=== PATIENT | female | born 1980 | race Caucasian/White ===

== ENCOUNTER 2020-11-17 21:59 | Emergency (ER) | payer MEDICAID, SELFPAY ==
[2020-11-17 22:36] VITALS: BP 140/56; PULSE 94; RESP 16; TEMP 36.9; O2SAT 97; BMI 52.5
--- NOTE | 2020-11-17 22:49 | XR_ITS ---
EXAMINATION: XR FEMUR, RIGHT CLINICAL INFORMATION: Right thigh pain. COMPARISON: None TECHNIQUE: AP and lateral views of the right femur were obtained. FINDINGS: No acute fracture or dislocation. Small lateral acetabular marginal osteophytes. No osseous erosion. No abnormal soft tissue calcification. XR/XR femur RT 2V IMPRESSION: No acute osseous abnormality. Minimal right hip arthrosis.
--- NOTE | 2020-11-17 22:49 | XR_ITS ---
EXAMINATION: XR HAND/WRIST, RIGHT CLINICAL INFORMATION: Pain. COMPARISON: Right forearm radiographs dated 05/06/2016. TECHNIQUE: AP, oblique, lateral, and scaphoid views of the right hand/wrist were obtained. FINDINGS: No acute fracture or dislocation. No joint space narrowing or marginal osteophytes. No osseous erosion. No abnormal soft tissue calcification. XR/XR hand wrist RT IMPRESSION: Unremarkable examination.
[2020-11-17] MEDS: Ketorolac Tromethamine 15 MG/ML VIAL IM (23:37)
--- NOTE | 2020-11-17 23:47 | ED_ITS ---
HPI - General Adult General Chief complaint: General Medical Stated complaint: Hand and leg swelling Time Seen by Provider: 11/17/20 22:43 Source: patient Mode of arrival: ambulatory History of Present Illness HPI narrative: 40-year-old female with no significant past medical history presenting to the ED complaining of right wrist and right thigh pain x3 days. Reports pain with palpation and range of motion. Denies known injury/trauma or falls. Denies numbness, tingling, weakness, fever, chills, history of gout, recent lifting, SOB/CP, recent travel Onset (ago): day(s) Related Data Previous Rx's Medication Instructions Recorded acetaminophen [Tylenol Extra 500 mg PO Q6H PRN #20 tab 11/17/20 Strength] lidocaine [Lidoderm] 1 patch TOPICAL DAILY PRN #30 ea 11/17/20 MDD remove after 12 hours methocarbamol 750 mg PO Q8H PRN 3 Days #9 tab 11/17/20 naproxen 500 mg PO BID PRN 10 Days #20 tab 11/17/20 Allergies Allergy/AdvReac Type Severity Reaction Status Date / Time Flexeril Allergy Unknown palpitations, Verified 11/17/20 22:38 itching, swelling, tachycardia tramadol [TRAMADOL] Allergy Unknown ITCHING Verified 11/17/20 22:38 From FLEXERIL Allergy Unknown ITCHING Uncoded 11/17/20 22:38 Review of Systems Review of Systems: Constitutional: No Weight loss, No Fever, No Chills Cardiovascular: No Chest Pain, No SOB Respiratory: No Cough, No Wheezing Musculoskeletal: + joint pain, No Myalgias, + Joint Swelling Skin: No Skin Lesions, No rash Neuro: No Weakness, No Numbness, No Paresthesias Yes all other systems are reviewed and are negative [facility] Past Medical History Attestation statement: The following information was validated with the patient. Medical History (Updated 11/17/20 @ 23:51 by VITOR Chi) No known health problems Social History Social History Advance Directives: No Advance Directives Information Provided: No Physical Exam Vital Signs: Vital Signs: Last Vital Signs Temp 98.5 F 11/17/20 22:36 Pulse 94 11/17/20 22:36 Resp 16 11/17/20 22:36 BP 140/56 H 11/17/20 22:36 Pulse Ox 97 11/17/20 22:36 Body Mass Index 52.5 Const: General: cooperative and healthy appearing Orientation/consciousness: patient oriented x3 Limitations: no limitations HENMT: Head: Yes normal to inspection Ears: hearing grossly normal bilate rally General nose exam: Normal external nose present Face and sinus: Yes normal facial exam Eyes: General: appearance normal, both eyes and all related structures EOM: EOMs intact bilaterally Neck: Neck: Yes normal visual inspection Resp: Effort & Inspection: normal respiratory effort Cardio: Rate: regular rate Peripheral pulses: radial pulses present and dorsalis pedis present Skin: Rashes: no rashes Wounds: no wounds Neuro: General: patient oriented x3 Gait exam (Neuro): Normal gait present Extrem: Other: Mild swelling noted to right hand fingers. Right phalanges and wrist with ttp. No snuffbox ttp. No erythema, fluctuance/induration or deformity. No cellulites or streaking. Decreased ROM of hand and wrist due to pain. Neurovascularly intact. Right distal thigh with lateral tenderness. No deformity, no erythema/cellulitis. No calf tenderness. Neurovascularly intact. R knee nontender. All compartments soft Course Course Course Narrative: * XR's unremarkable Results discussed with patient including worrisome signs and symptoms and strict return precautions. Patient is to follow-up with her PCP. She verbalized understanding feel safe for discharge home Medical Decision Making MDM Narrative Medical decision making narrative: On exam VSS, NAD/well-appearing, physical exam as above. ? Occult fracture. No evidence of cellulitis. Compartments soft, low concern for septic joint or arthritis. Plan: X-rays, reassess Discharge Plan Discharge Clinical Impression: Myalgia Patient Disposition: Home, Self-Care Instructions: Musculoskeletal Pain (ED) Additional Instructions: Your x-rays were unremarkable today in the emergency department You to follow-up with your primary care doctor You may ice and heat painful areas Your pain is likely musculoskeletal Robaxin is a muscle relaxer, take at night as it makes you drowsy, do not drive, drink alcohol, or operate machinery while taking it Naproxen as an anti-inflammatory / pain medication, take with food Lidoderm patches are numbing patches, apply to painful area In addition take Tylenol at home If symptoms persist or worsen, pain becomes unbearable, you developed urinary retention or incontinence, or weakness return to the ED Prescriptions: New acetaminophen [Tylenol Extra Strength] 500 mg tablet 500 mg PO Q6H PRN (Reason: pain or fever) Qty: 20 RF: 0 lidocaine [Lidoderm] 5 % adhesive patch,medicated 1 patch topical DAILY MDD remove after 12 hours PRN (Reason: pain) Qty: 30 RF: 0 naproxen 500 mg tablet 500 mg PO BID PRN (Reason: pain) 10 Days Qty: 20 RF: 0 methocarbamol 750 mg tablet 750 mg PO Q8H PRN (Reason: pain, moderate) 3 Days Qty: 9 RF: 0 Referrals: Kathy Valverde DO [Primary Care Provider] - 2 days
== END 2020-11-17 23:30 | disposition home or self-care (01) ==
PROVIDERS: Emergency Provider Emergency Medicine; PCP Family Medicine
DX: M79.10 Myalgia, unspecified site (principal); M25.531 Pain in right wrist; M79.651 Pain in right thigh
CPT/HCPCS: 73110; 73130; 73552; 96372; 99284; J1885

== ENCOUNTER 2020-11-19 19:35 | Emergency (ER) | payer MEDICAID, SELFPAY ==
[2020-11-19 20:19] VITALS: BP 182/91; PULSE 123; RESP 20; TEMP 36.8; O2SAT 99; BMI 50.8
[2020-11-19 22:32] VITALS: BP 141/80; PULSE 114; RESP 18; TEMP 36.9; O2SAT 99
--- NOTE | 2020-11-19 23:25 | ED_ITS ---
HPI - Extremity Problem General Chief complaint: Extremity Problem Stated complaint: Hand swelling Time Seen by Provider: 11/19/20 23:01 Source: patient Mode of arrival: ambulatory Limitations: no limitations History of Present Illness HPI Narrative: 40-year-old female with past medical history of spina bifida presents with bilateral hand pain. She stated that the pain started several days ago, was seen at this facility and given lidocaine patch, Robaxin and naproxen with poor effect. She states that she is unable to hold onto a cup, or pull up her pants because of the pain in her hands. She does not report any trauma, assault, fevers, chills, nausea, vomiting, abdominal pain, abdominal distention, dysuria, hematuria, or edema. She does report some mild swelling to the right hand. MD Complaint: extremity pain and extremity swelling Onset (ago): day(s) (4) Pain Consistency: constant Location: left, right and upper extremity Severity scale (1-10): 10 Quality: aching and constant Relieving factors: nothing Exacerbating factors: range of motion and palpation Associated symptoms: denies other symptoms Related Data Previous Rx's Medication Instructions Recorded cephalexin [Keflex] 500 mg PO Q8H 7 Days #21 cap 11/20/20 oxycodone 5 mg PO BID PRN #6 tab 11/20/20 phenazopyridine [Pyridium] 200 mg PO TID PRN #6 tab 11/20/20 Allergies Allergy/AdvReac Type Severity Reaction Status Date / Time Flexeril Allergy Unknown palpitations, Verified 11/19/20 22:06 itching, swelling, tachycardia tramadol [TRAMADOL] Allergy Unknown ITCHING Verified 11/19/20 22:06 gabapentin Allergy Rash Verified 11/19/20 22:08 From FLEXERIL Allergy Unknown Rash Uncoded 11/19/20 22:08 Review of Systems Review of Systems: Constitutional: No Fever, No Chills ENT/Mouth: No Ear Pain, No Hoarseness, No sore throat Eyes: No Eye Pain, No Swelling, No Redness, No Foreign Body Cardiovascular: No Chest Pain, No SOB Respiratory: No Cough, No Dyspnea Gastrointestinal: No Nausea, No Vomiting, No Diarrhea, No abdominal Pain Genitourinary: No Dysuria, No Hematuria Musculoskeletal: positive bilateral hand pain, No Myalgias, No Joint Swelling Skin: No Skin lacerations, No rash Neuro: No Weakness, No Numbness, No Paresthesias, No Loss of Consciousness, No Dizziness, No Headache Psych: No Anxiety/Panic, No Depression Heme/Lymph: no easy bruising, no Lymphadenopathy Endocrine: No Polyuria, No Polydipsia Yes all other systems are reviewed and are negative [facility] Past Medical History Medical History No known health problems Spina bifida Social History Social History Alcohol intake: never Smoking Status: Never smoker Use of substances other than those prescribed or required for medical reasons: No Advance Directives: No Advance Directives Information Provided: Yes Physical Exam Vital Signs: Vital Signs: Last Vital Signs Temp 99.3 F 11/20/20 00:41 Pulse 101 H 11/20/20 02:00 Resp 18 11/20/20 02:00 BP 142/75 H 11/20/20 02:00 Pulse Ox 96 11/20/20 02:00 Body Mass Index 50.8 Appearance: Alert. Oriented X3. Moderate distress. Eyes: Pupils equal, round and reactive to light. ENT: Pharynx normal. Neck: Normal inspection. Neck supple. CVS: Normal heart rate and rhythm. Pulses normal. Respiratory: No respiratory distress. Breath sounds normal. Abdomen: Soft and nontender. Skin: Skin warm and dry. Normal skin color. Normal skin turgor. Extremities: No lower extremity edema. 3/5 strength bilateral hands, patient is unwilling to move her fingers secondary to pain, sensation and capillary refill normal to all digits. Neuro: No motor deficit. No sensory deficit. Course Course Course Narrative: 40-year-old female with past medical history of spina bifida presents with bilateral hand pain. This is her 2nd visit, we will repeat x-rays of bilateral hands, her symptoms are suspicious for arthritis will order a CRP and ESR, drugs of abuse screen, urinalysis, CBC and Chem 7. Heart rate elevated upon arrival in 123, Patient states that she is very nervous and in 10/10 pain. Will order lactic and cultures. Urinalysis indicates UTI, elevated CRP and ESR indicative of inflammatory consistent with arthritis. Pain is not well managed we will give oxycodone p.o. and Toradol IV. Detailed description for discharge instructions with patient, she does understand that she must follow-up with Rheumatology, and that pain will persist. Patient does understand the medications given to her and the high risk of addiction and abuse with oxycodone. Patient verbalized understanding of and agrees to plan of care discharge home. Reevaluation(s) Reevaluation #1: This TELEGRAPHIC TYPEWRITER OPERATOR started IV line at this time. Labs drawn at this time. Time: 00:12 MDM - Extremity (Nontraumatic) MDM Narrative Medical decision making narrative: Arthritis, fracture Differential Diagnosis Differential diagnosis: Likely gout and cellulitis Medical Records Attestation: I reviewed the patient's medical records. Lab Data Attestation: I reviewed the patient's lab results. Result diagrams: 11/20/20 00:16 11/20/20 00:16 Labs: Lab Results 11/20/20 11/20/20 11/20/20 Range/Units 00:16 00:16 00:16 WBC 10.4 (4.8-10.8) X10*3/uL RBC 4.56 (4.20-5.50) X10*6/uL Hgb 12.9 (12.0-16.0) g/dl Hct 38.6 (37-47) % MCV 84.6 (80-98) fL MCH 28.3 (27.0-33.0) pg MCHC 33.4 (31.0-35.0) g/dl RDW 12.1 (11.0-16.0) % Plt Count 246 (160-400) X10*3/uL MPV 11.7 (9.4-12.3) fL Immature Gran % (Auto) 0.2 (0.0-0.4) % Neut % (Auto) 77.5 H (45-73) % Lymph % (Auto) 14.8 L (20-40) % Larue % (Auto) 5.1 (2-11) % Eos % (Auto) 2.0 (0-4) % Baso % (Auto) 0.4 (0-2) % Lymph # (Auto) 1.5 (1.2-4.9) X10*3/uL Larue # (Auto) 0.5 (0.1-1.2) X10*3/uL Eos # (Auto) 0.2 (0.0-0.4) X10*3/uL Baso # (Auto) 0.0 (0.0-0.2) X10*3/uL Abs Immat Gran (auto) 0.02 (0.00-0.03) X10*3/uL Absolute Neuts (auto) 8.0 (2.0-8.3) X10*3/uL Absolute Nucleated RBC 0.000 (0.0-0.012) X10*3/uL Nucleated RBC % (auto) 0.0 (0.0-0.2) /100WBC ESR 67 H (0-20) MM/HR Hold Blue Top Sodium 137 (135-145) mmol/L Potassium 4.1 (3.3-5.1) mmol/l Chloride 101 (96-108) mmol/L Carbon Dioxide 22 (22-29) mmol/L Anion Gap 18 (12-20) BUN 8 L (9-16) mg/dL Creatinine 0.74 (0.5-1.4) mg/dL Estim Creat Clear Calc 117.6 Estimated GFR > 60 Random Glucose 255 H (60-115) mg/dL Lactic Acid (0.5-2.0) mmol/L Calcium 8.4 (8.4-10.2) mg/dL C-Reactive Protein (< or = 0.50) mg/dL Hold Red Top Hold Green Top Urine Color Urine Appearance Urine pH (5.0-8.0) Ur Specific [place] (1.005-1.025) Urine Protein (NEG-TRACE) MG/DL Urine Glucose (UA) (NEG) MG/DL Urine Ketones (NEG) MG/DL Urine Blood (NEG) Urine Nitrite (NEG) Ur Leukocyte Esterase (NEG) Urine RBC (0) /HPF Urine WBC (0-4) /HPF Ur Squamous Epith Cells /LPF Calcium Oxalate Crystal /LPF Urine Bacteria /LPF Urine Mucus /LPF Urine Opiates Screen (Not Detect) Ur Barbiturates Screen (Not Detect) Ur Phencyclidine Scrn (Not Detect) Ur Amphetamines Screen (Not Detect) U Benzodiazepines Scrn (Not Detect) Urine Cocaine Screen (Not Detect) U Marijuana (THC) Screen (Not Detect) 11/20/20 11/20/20 11/20/20 Range/Units 00:16 00:17 00:25 WBC (4.8-10.8) X10*3/uL RBC (4.20-5.50) X10*6/uL Hgb (12.0-16.0) g/dl Hct (37-47) % MCV (80-98) fL MCH (27.0-33.0) pg MCHC (31.0-35.0) g/dl RDW (11.0-16.0) % Plt Count (160-400) X10*3/uL MPV (9.4-12.3) fL Immature Gran % (Auto) (0.0-0.4) % Neut % (Auto) (45-73) % Lymph % (Auto) (20-40) % Larue % (Auto) (2-11) % Eos % (Auto) (0-4) % Baso % (Auto) (0-2) % Lymph # (Auto) (1.2-4.9) X10*3/uL Larue # (Auto) (0.1-1.2) X10*3/uL Eos # (Auto) (0.0-0.4) X10*3/uL Baso # (Auto) (0.0-0.2) X10*3/uL Abs Immat Gran (auto) (0.00-0.03) X10*3/uL Absolute Neuts (auto) (2.0-8.3) X10*3/uL Absolute Nucleated RBC (0.0-0.012) X10*3/uL Nucleated RBC % (auto) (0.0-0.2) /100WBC ESR (0-20) MM/HR Hold Blue Top SEE NOTE Sodium (135-145) mmol/L Potassium (3.3-5.1) mmol/l Chloride (96-108) mmol/L Carbon Dioxide (22-29) mmol/L Anion Gap (12-20) BUN (9-16) mg/dL Creatinine (0.5-1.4) mg/dL Estim Creat Clear Calc Estimated GFR Random Glucose (60-115) mg/dL Lactic Acid 1.2 (0.5-2.0) mmol/L Calcium (8.4-10.2) mg/dL C-Reactive Protein 9.00 H (< or = 0.50) mg/dL Hold Red Top Hold Green Top Urine Color Urine Appearance Urine pH (5.0-8.0) Ur Specific [place] (1.005-1.025) Urine Protein (NEG-TRACE) MG/DL Urine Glucose (UA) (NEG) MG/DL Urine Ketones (NEG) MG/DL Urine Blood (NEG) Urine Nitrite (NEG) Ur Leukocyte Esterase (NEG) Urine RBC (0) /HPF Urine WBC (0-4) /HPF Ur Squamous Epith Cells /LPF Calcium Oxalate Crystal /LPF Urine Bacteria /LPF Urine Mucus /LPF Urine Opiates Screen (Not Detect) Ur Barbiturates Screen (Not Detect) Ur Phencyclidine Scrn (Not Detect) Ur Amphetamines Screen (Not Detect) U Benzodiazepines Scrn (Not Detect) Urine Cocaine Screen (Not Detect) U Marijuana (THC) Screen (Not Detect) 11/20/20 11/20/20 11/20/20 Range/Units 00:25 00:25 00:25 WBC (4.8-10.8) X10*3/uL RBC (4.20-5.50) X10*6/uL Hgb (12.0-16.0) g/dl Hct (37-47) % MCV (80-98) fL MCH (27.0-33.0) pg MCHC (31.0-35.0) g/dl RDW (11.0-16.0) % Plt Count (160-400) X10*3/uL MPV (9.4-12.3) fL Immature Gran % (Auto) (0.0-0.4) % Neut % (Auto) (45-73) % Lymph % (Auto) (20-40) % Larue % (Auto) (2-11) % Eos % (Auto) (0-4) % Baso % (Auto) (0-2) % Lymph # (Auto) (1.2-4.9) X10*3/uL Larue # (Auto) (0.1-1.2) X10*3/uL Eos # (Auto) (0.0-0.4) X10*3/uL Baso # (Auto) (0.0-0.2) X10*3/uL Abs Immat Gran (auto) (0.00-0.03) X10*3/uL Absolute Neuts (auto) (2.0-8.3) X10*3/uL Absolute Nucleated RBC (0.0-0.012) X10*3/uL Nucleated RBC % (auto) (0.0-0.2) /100WBC ESR (0-20) MM/HR Hold Blue Top Sodium (135-145) mmol/L Potassium (3.3-5.1) mmol/l Chloride (96-108) mmol/L Carbon Dioxide (22-29) mmol/L Anion Gap (12-20) BUN (9-16) mg/dL Creatinine (0.5-1.4) mg/dL Estim Creat Clear Calc Estimated GFR Random Glucose (60-115) mg/dL Lactic Acid (0.5-2.0) mmol/L Calcium (8.4-10.2) mg/dL C-Reactive Protein (< or = 0.50) mg/dL Hold Red Top See Note Hold Green Top See Note Urine Color YELLOW Urine Appearance CLOUDY Urine pH 6.0 (5.0-8.0) Ur Specific [place] >= 1.030 H (1.005-1.025) Urine Protein 1+ H (NEG-TRACE) MG/DL Urine Glucose (UA) 250 H (NEG) MG/DL Urine Ketones 5 (NEG) MG/DL Urine Blood 2+ H (NEG) Urine Nitrite NEG (NEG) Ur Leukocyte Esterase 1+ H (NEG) Urine RBC 0-2 (0) /HPF Urine WBC 30-49 H (0-4) /HPF Ur Squamous Epith Cells 3+ /LPF Calcium Oxalate Crystal 2+ /LPF Urine Bacteria 2+ /LPF Urine Mucus 2+ /LPF Urine Opiates Screen Not Detected (Not Detect) Ur Barbiturates Screen Not Detected (Not Detect) Ur Phencyclidine Scrn Not Detected (Not Detect) Ur Amphetamines Screen Not Detected (Not Detect) U Benzodiazepines Scrn Not Detected (Not Detect) Urine Cocaine Screen Not Detected (Not Detect) U Marijuana (THC) Screen Not Detected (Not Detect) Imaging Data Bilateral hand x-ray: Attestation: I personally reviewed and interpreted this imaging study as follows: Radiologist's impression: EXAMINATION: XR HAND, RIGHT XR HAND, LEFT CLINICAL INFORMATION: Pain and swelling COMPARISON: 11/17/2020 TECHNIQUE: 3 views of each hand FINDINGS: Right hand: No fracture or dislocation. Alignment is anatomic. Joint spaces are maintained. There is diffuse soft tissue swelling. Left hand: There is no fracture or dislocation. Alignment is anatomic. Joint spaces are maintained. Mild diffuse soft tissue swelling. XR/XR hand LT min 3V IMPRESSION: Bilateral soft tissue swelling without acute osseous abnormality. Discharge Plan Discharge Clinical Impression: Arthritis UTI (urinary tract infection) Qualifiers: Urinary tract infection type: acute cystitis Hematuria presence: without hematuria Qualified Code(s): N30.00 - Acute cystitis without hematuria Type 2 diabetes mellitus Qualifiers: Diabetes mellitus terminal operations supervisor insulin use: without [facility] use Diabetes mellitus complication status: without complication Qualified Code(s): E11.9 - Type 2 diabetes mellitus without complications Hypertension Qualifiers: Hypertension type: essential hypertension Qualified Code(s): I10 - Essential (primary) hypertension Patient Disposition: Home, Self-Care Instructions: Urinary Tract Infection in Women (ED), Type 2 Diabetes in Adults: New Diagnosis (ED), Arthritis (ED), Diabetes and Your Skin (ED), Hypertension and Diabetes (ED), Diabetes and Nutrition (ED), Diabetes and Exercise (ED) Additional Instructions: You were evaluated for bilateral hand pain and swelling. Your blood levels indicate elevated ESR and CRP. These markers may indicate arthritis. You must follow-up with commercial fishing vessel operator for further workup. Please call the number given for Dr. Palomares and request an appointment. We prescribed oxycodone, this medication as narcotic and has high risk for addiction and abuse. This medication will delay reaction time, increased drowsiness, increased risk for falls. This medication is also constipating. Do not drive or operate machinery while taking this medication. Urinalysis indicates UTI. We will treat you with Macrobid. Please take this medication as directed. This medication is an antibiotic. For bladder spasms we prescribed a medication called Pyridium. This medication will turn your urine bright orange. If symptoms persist or worsen please return to the emergency department immediately. Your lab values indicate diabetes, your blood sugar was 255. You must follow-up with your primary care physician this week. Your blood pressure is also elevated which is an indication of hypertension. This also must be followed up with your primary care physician. Thank you for choosing this emergency department for evaluation. Please follow-up with primary care physician as needed. Return to the emergency department for any new, concerning, or worsening symptoms. Prescriptions: New cephalexin [Keflex] 500 mg capsule 500 mg PO Q8H 7 Days Qty: 21 RF: 0 oxycodone 5 mg tablet 5 mg PO BID PRN (Reason: pain) Qty: 6 RF: 0 phenazopyridine [Pyridium] 200 mg tablet 200 mg PO TID PRN (Reason: pain) Qty: 6 RF: 0 Referrals: Reynaldo Palomares MD [Physician] - 2 days (Suspected rheumatoid arthritis) Interventions: ED Discharge Assessment Last Done: 11/20/20 02:39
--- NOTE | 2020-11-20 00:11 | XR_ITS ---
EXAMINATION: XR HAND, RIGHT XR HAND, LEFT CLINICAL INFORMATION: Pain and swelling COMPARISON: 11/17/2020 TECHNIQUE: 3 views of each hand FINDINGS: Right hand: No fracture or dislocation. Alignment is anatomic. Joint spaces are maintained. There is diffuse soft tissue swelling. Left hand: There is no fracture or dislocation. Alignment is anatomic. Joint spaces are maintained. Mild diffuse soft tissue swelling. XR/XR hand LT min 3V IMPRESSION: Bilateral soft tissue swelling without acute osseous abnormality.
--- NOTE | 2020-11-20 00:11 | XR_ITS ---
EXAMINATION: XR HAND, RIGHT XR HAND, LEFT CLINICAL INFORMATION: Pain and swelling COMPARISON: 11/17/2020 TECHNIQUE: 3 views of each hand FINDINGS: Right hand: No fracture or dislocation. Alignment is anatomic. Joint spaces are maintained. There is diffuse soft tissue swelling. Left hand: There is no fracture or dislocation. Alignment is anatomic. Joint spaces are maintained. Mild diffuse soft tissue swelling. XR/XR hand RT min 3V IMPRESSION: Bilateral soft tissue swelling without acute osseous abnormality.
[2020-11-20] MEDS: Morphine Sulfate 4 MG/ML CARTRIDGE IVPUSH (00:34)
[2020-11-20] MEDS: 0.9 % Sodium Chloride 1,000 ML 999 ML IVCONT (00:34)
[2020-11-20 00:41] VITALS: BP 133/82; PULSE 106; RESP 17; TEMP 37.4; O2SAT 96
[2020-11-20 00:53] LABS: Basophils Percent Auto 0.4 % (0-2); Eosinophils Absolute Auto 0.2 X10*3/uL (0.0-0.4); Hematocrit 38.6 % (37-47); Hemoglobin 12.9 g/dl (12.0-16.0); Imm Gran Abs Auto 0.02 X10*3/uL (0.00-0.03); Imm Gran Pct Auto 0.2 % (0.0-0.4); Lymphocytes Absolute Auto 1.5 X10*3/uL (1.2-4.9); Lymphocytes Percent Auto 14.8 % (20-40); Mean Corpuscular HGB Conc 33.4 g/dl (31.0-35.0); Mean Corpuscular Hemoglobin 28.3 pg (27.0-33.0); Mean Corpuscular Volume 84.6 fL (80-98); Mean Platelet Volume 11.7 fL (9.4-12.3); Monocytes Absolute Auto 0.5 X10*3/uL (0.1-1.2); Monocytes Percent Auto 5.1 % (2-11); Neutrophils Percent Auto 77.5 % (45-73); Platelet Count 246 X10*3/uL (160-400); Red Blood Count 4.56 X10*6/uL (4.20-5.50); Red Cell Distribution Width 12.1 % (11.0-16.0); White Blood Count 10.4 X10*3/uL (4.8-10.8)
[2020-11-20 00:54] LABS: MANUAL DIFF FLAG NO
[2020-11-20 00:55] LABS: Glucose Urine UA 250 MG/DL (NEG); Leukocyte Esterase Urine 1+ (NEG); Nitrite Urine NEG (NEG); Specific Gravity - Urine >= 1.030 (1.005-1.025); Urine Blood 2+ (NEG); Urine Ketones 5 MG/DL (NEG); Urine Protein 1+ MG/DL (NEG-TRACE)
[2020-11-20 00:59] LABS: Appearance Urine CLOUDY; Color Urine YELLOW
[2020-11-20 01:06] LABS: Bacteria Urine 2+ /LPF; Calcium Oxalate Crystals Urine 2+ /LPF; Mucus Urine 2+ /LPF; RBC Urine 0-2 /HPF (0); Squamous Epithelial Cell Urine 3+ /LPF; WBC Urine 30-49 /HPF (0-4)
--- NOTE | 2020-11-20 01:13 | PC.NURSE ---
REPORT GIVEN TO BEKAH SAEED.
[2020-11-20 01:18] LABS: Lactic Acid 1.2 mmol/L (0.5-2.0)
[2020-11-20 01:20] LABS: Anion Gap 18 (12-20); Blood Urea Nitrogen 8 mg/dL (9-16); Calcium 8.4 mg/dL (8.4-10.2); Carbon Dioxide 22 mmol/L (22-29); Chloride 101 mmol/L (96-108); Creatinine Clr Calc Pharmacy 117.6; Estimated Glomerular Filt Rate > 60; Glucose Random 255 mg/dL (60-115); Potassium 4.1 mmol/l (3.3-5.1); Sodium 137 mmol/L (135-145)
[2020-11-20 01:22] LABS: Amphetamine Screen Urine Not Detected (Not Detect); Barbiturates, Urine Not Detected (Not Detect); Benzodiazepines Screen Urine Not Detected (Not Detect); Cannabinoid Screen Urine Not Detected (Not Detect); Cocaine Screen Urine Not Detected (Not Detect); Opiate Screen Urine Not Detected (Not Detect); Phencyclidine Screen Urine Not Detected (Not Detect)
[2020-11-20 01:31] LABS: Erythrocyte Sedimentation Rate 67 MM/HR (0-20)
[2020-11-20 02:00] VITALS: BP 142/75; PULSE 101; RESP 18; O2SAT 96
[2020-11-20] MEDS: oxyCODONE HCl Immed Release 5 MG TABLET PO (02:19)
[2020-11-20] MEDS: Ketorolac Tromethamine 30 MG/ML VIAL IVPUSH (02:21)
--- NOTE | 2020-11-20 02:22 | PC.NURSE ---
Patient medicated per emar as noted
[2020-11-20] MEDS: cephALEXin 500 MG CAPSULE PO (03:02)
== END 2020-11-20 03:09 | disposition home or self-care (01) ==
PROVIDERS: Nurse Practitioner Family; Emergency Provider Emergency Medicine; PCP Family Medicine
DX: M19.042 Primary osteoarthritis, left hand (principal); M19.041 Primary osteoarthritis, right hand; N30.00 Acute cystitis without hematuria; E11.9 Type 2 diabetes mellitus without complications; I10 Essential (primary) hypertension; Z79.899 Other long term (current) drug therapy; Q05.9 Spina bifida, unspecified
CPT/HCPCS: 36415; 73130; 80048; 80307; 81001; 83605; 85025; 85652; 86140; 87040; 87086; 96361; 96374; 96375; 99284; J1885; J2270

== ENCOUNTER 2021-02-06 12:34 | Outpatient (REF) | payer MEDICAID, SELFPAY ==
--- NOTE | ~2021-02-06 | US_ITS ---
EXAMINATION: NONINVASIVE ASSESSMENT OF THE ARTERIES OF BOTH LOWER EXTREMITIES WITH PVR EXAM AND BILATERAL LOWER EXTREMITY DUPLEX CLINICAL INFORMATION: Peripheral vascular disease TECHNIQUE: Ankle pulse volume recordings, ankle pressure measurements and ankle brachial indices were obtained of the lower extremity arterial system bilaterally in addition to duplex Doppler techniques with wave form analysis and measurement of velocities in the common femoral, profunda femoral, superficial femoral, popliteal and tibial arteries. The study was performed only at rest. COMPARISON: Previous exam June 2019 FINDINGS: a) AT REST: RIGHT LE. The right ankle-brachial index is: 0.91 2. Right ankle pressure: normal. 3. Right ankle PVR waveform: normal. 4. Right direct duplex Doppler findings: * Common femoral artery: 179 cm/s, Diastolic flow reversal: Yes * Superficial femoral artery (proximal, mid, distal): 105, 101 and 97 cm/s, Diastolic flow reversal: Yes * Popliteal artery: 82 cm/s, Diastolic flow reversal: Yes * Posterior tibial artery: 84 cm/s, Diastolic flow reversal: Yes LEFT LE. The left ankle-brachial index is: 0.92 2. Left ankle pressure: normal. 3. Left ankle PVR waveform: normal. 4. Left direct duplex Doppler findings: * Common femoral artery: 1 cm/s, Diastolic flow reversal: Yes * Superficial femoral artery (proximal, mid, distal): 136, 83 and 77 cm/s, Diastolic flow reversal: Yes * Popliteal artery: 82 cm/s, Diastolic flow reversal: Yes * Posterior tibial artery: 71 cm/s, Diastolic flow reversal: Yes ANDREZ Reference: * >0.97-1.25 = normal - no significant arterial disease * 0.75-0.96 = mild peripheral arterial disease * 0.5-0.74 = moderate peripheral arterial disease * <0.50 = severe peripheral arterial disease US/US ANDREZ complete IMPRESSION: There is no evidence of any hemodynamically significant lower extremity arterial disease by pressure, waveform or duplex Doppler criteria at rest. There is increased peak systolic velocity in both common femoral arteries.
--- NOTE | ~2021-02-06 | US_ITS ---
EXAMINATION: NONINVASIVE ASSESSMENT OF THE ARTERIES OF BOTH LOWER EXTREMITIES WITH PVR EXAM AND BILATERAL LOWER EXTREMITY DUPLEX CLINICAL INFORMATION: Peripheral vascular disease TECHNIQUE: Ankle pulse volume recordings, ankle pressure measurements and ankle brachial indices were obtained of the lower extremity arterial system bilaterally in addition to duplex Doppler techniques with wave form analysis and measurement of velocities in the common femoral, profunda femoral, superficial femoral, popliteal and tibial arteries. The study was performed only at rest. COMPARISON: Previous exam June 2019 FINDINGS: a) AT REST: RIGHT LE. The right ankle-brachial index is: 0.91 2. Right ankle pressure: normal. 3. Right ankle PVR waveform: normal. 4. Right direct duplex Doppler findings: * Common femoral artery: 179 cm/s, Diastolic flow reversal: Yes * Superficial femoral artery (proximal, mid, distal): 105, 101 and 97 cm/s, Diastolic flow reversal: Yes * Popliteal artery: 82 cm/s, Diastolic flow reversal: Yes * Posterior tibial artery: 84 cm/s, Diastolic flow reversal: Yes LEFT LE. The left ankle-brachial index is: 0.92 2. Left ankle pressure: normal. 3. Left ankle PVR waveform: normal. 4. Left direct duplex Doppler findings: * Common femoral artery: 1 cm/s, Diastolic flow reversal: Yes * Superficial femoral artery (proximal, mid, distal): 136, 83 and 77 cm/s, Diastolic flow reversal: Yes * Popliteal artery: 82 cm/s, Diastolic flow reversal: Yes * Posterior tibial artery: 71 cm/s, Diastolic flow reversal: Yes ANDREZ Reference: * >0.97-1.25 = normal - no significant arterial disease * 0.75-0.96 = mild peripheral arterial disease * 0.5-0.74 = moderate peripheral arterial disease * <0.50 = severe peripheral arterial disease US/US arterial duplex LE BI IMPRESSION: There is no evidence of any hemodynamically significant lower extremity arterial disease by pressure, waveform or duplex Doppler criteria at rest. There is increased peak systolic velocity in both common femoral arteries.
== END 2021-02-06 12:35 | disposition home or self-care (01) ==
LOC: HO.US 12:34
PROVIDERS: Visit Provider Surgery Vascular Surgery
DX: I73.9 Peripheral vascular disease, unspecified (principal)
CPT/HCPCS: 93923; 93925

== ENCOUNTER → 2021-08-15 10:53 | Outpatient (BNVA) | payer MEDICAID, SELFPAY | PROVIDERS: PCP Family Medicine; Visit Provider Surgery Vascular Surgery | DX: I73.9 Peripheral vascular disease, unspecified (principal); I83.11 Varicose veins of right lower extremity with inflammation | CPT/HCPCS: 99212 ==

== ENCOUNTER 2021-10-04 09:01 | Outpatient (REF) | payer MEDICAID, SELFPAY ==
--- NOTE | 2021-10-14 09:56 | MHC.AU.MED ---
Medical Clearance for Hearing Instrumentation Date: 10/14/21 Patient Name: Shannon Santso Date of : 1980 Referring Provider: Kathy Valverde, DO We have seen your patient on 10/04/21 and have determined that they are a candidate for amplification (See accompanying report). Specifically, they would benefit from: Hearing aid use in both ears There is a statute that addresses Medical Evaluation Requirements prior to fitting a patient with a hearing aid. According to [place] statute 265 CMR:6.03(1), (a) General. Except as provided in 265 CMR 6.03(1)(b), a hearing health technician shall not sell a hearing aid unless the prospective user has presented to the hearing health technician a written statement signed by a licensed physician that states that the patient's hearing loss has been medically evaluated and the patient may be considered a candidate for a hearing aid. The medical evaluation must have taken place within the preceding six months. Please note: Due to the [place] Statute referenced above, we cannot accept a signature other than that of a licensed physician. WOOL SHEARING SUPERVISOR and PA signatures cannot be accepted. I am in agreement with the above recommendation. There is no medical contraindication for hearing instrumentation. Physician Signature Date Physician Name (Printed)
--- NOTE | 2021-10-14 09:57 | MHC.AU.AEV ---
Adult Audiological Evaluation Date of Visit: 10/04/21 Reason for Appointment: Long-standing history of asymmetrical hearing loss (worse in the left ear), diagnosed in childhood. Since 02/14/2010 (the earliest test we have on record), hearing in the left ear has been steadily decreasing. In 2009 and 2011, there was still measurable word discrimination in the left ear; however, since the 2017 evaluation there has been no measurable word discrimination ability in the left ear. Has hearing been tested previously?: Yes Previous Hearing Test Results: At this clinic on 11/21/2016- Right: Overall moderate sensorineural hearing loss, Left: Overall profound sensorineural hearing loss Medical History: Per medical record, history of Spina Bifida, Type 2 Diabetes Hearing Instrument History- Right Ear: Manager Pharmacy: [facility] Model: apstrata S III SP [id number] Serial Number: [id number] Battery Size: 13 Repair Warranty: Loss and Damage Warranty: Dispensed By: [facility] Date of Fittin04/29/2012 Hearing Instrument History- Left Ear: Manager Pharmacy: [employer] Model: apstrata S III SP BTE Serial Number: [id number] Battery Size: 13 Warranty: Loss and Damage Warranty: Dispensed By: [facility] Date of Fittin04/29/2012 Otoscopy: Right Ear: Unremarkable Left Ear: Unremarkable Tympanometry: Tympanometry performed due to: To assess integrity of the middle ear system Right Ear: Normal Middle Ear System (Type A) Left Ear: Normal Middle Ear System (Type A) Hearing Evaluation: Transducer(s) Used: Insert Earphones Method: Conventional Audiometry Stimuli Used: Pure Tones Right Ear: Description of Hearing: Moderately-severe rising to moderate sensorineural hearing loss Left Ear: Description of Hearing: Profound sensorineural hearing loss Speech Recognition Threshold (SRT): Method Used: Recorded Lists Stimuli Used: Spondee Words Right Ear: 50 dBHL Left Ear: Could not test Word Discrimination: Method: Recorded Lists Word Lists Used:: W-22 Right Ear: 88% at 80 dBHL Left Ear: Could not test Binaural: Tested binaurally, with level of 80 dBHL in the right ear and 110 dBHL in the left ear, to check if aiding the left ear would cause negative interference. Score was 84%. Most Comfortable Level (MCL): Right Ear: 80 dBHL Left Ear: Could not test Recommendations: Audiological re-evaluation in one year. Patient reports her hearing aids have been lost. See Hearing Aid Evaluation report for more details. Diagnosis: Primary Diagnosis: H90.3 Bilateral Sensorineural Hearing Loss Signature: Provider: Rachael Kim, CCC-A
--- NOTE | 2021-10-14 10:47 | MHC.AU.HAS ---
Hearing Aid Evaluation Date of Visit: 10/04/21 Historical Information: Description of Hearing: Right: Moderately-severe to moderate sensorineural hearing loss Left: Profound sensorineural hearing loss Current personal amplification information, if applicable: Pair of Phonak Agnes S III SP BTEs, obtained 04/19/2012 Summary: Patient was seen for audiological evaluation (see separate report for details). Patient reports her hearing aids have been lost. She has significant difficulty communicating without her hearing aids. Discussed hearing aid options. Patient has no measurable word discrimination in her left ear. Discussed the possibility of a BI-CROS system; however, patient prefers wearing a regular hearing aid on the left ear, as she finds it helps with environmental awareness. She does not feel the lack of clarity in the left ear interferes with her speech understanding. Binaural word discrimination was performed, with 80 dBHL presented to the right ear and 110 dBHL presented to the left ear. Patient was able to repeat 84% of words, compared to 88% with just the right ear, proving that input to the left ear will not significantly interfere with overall speech understanding. Hearing Aid Prescription: Based on the individual?s shared listening needs, communication environments, dexterity, desire for connectivity, and personal preferences, the following prescription for amplification has been made: Right ear: Phosphoric Acid Supervisor: Phonak Model: Agnes P70-UP Battery Size: 675 Color: Sand Beige Type of Mold: Microsonic Canal-Shell Medi-Naila Clear Left ear: Phosphoric Acid Supervisor: Phonak Model: Agnes P70-UP Battery Size: 675 Color: Sand Beige Type of Mold: Microsonic Canal-Shell Medi-Naila Clear Action Taken/Action Needed: Earmold Impressions Taken Prior authorization to be requested Medical Clearance to be requested from PCP/ENT Hearing Instrument Fitting to be scheduled when materials arrive Primary Diagnosis: H90.3 Bilateral Sensorineural Hearing Loss Signature: Provider: Rachael Kim, CCC-A
== END 2021-10-04 09:02 | disposition home or self-care (01) ==
LOC: HO.SH 09:01
PROVIDERS: Visit Provider Family Medicine
DX: Z46.1 Encounter for fitting and adjustment of hearing aid (principal); H90.3 Sensorineural hearing loss, bilateral
CPT/HCPCS: 92557; 92567; 92591; V5275

== ENCOUNTER 2021-11-22 12:12 | Outpatient (REF) | payer MEDICAID, SELFPAY ==
--- NOTE | 2021-11-22 15:09 | MHC.AU.HFA ---
Hearing Instrument Fitting- Adult- Binaural Date of Visit: 11/22/21 Hearing Instruments Dispensed: Right Ear: Cis Coordinator: Phonak Model: Agnes P70-UP Serial Number: [id number] Repair Warranty: 01/26/2025 Loss and Damage Warranty: 01/26/2025 Service Plan: Battery Size: 675 Color: Sand Beige Type of Mold: Microsonic Canal-Shell Medi-Naila Clear Left Ear: Cis Coordinator: Phonak Model: Agnes P70-UP Serial Number: [id number] Repair Warranty: 01/26/2025 Loss and Damage Warranty: 01/26/2025 Battery Size: 675 Color: Sand Beige Type of Mold: Microsonic Canal-Shell Medi-Naila Clear Summary of Fitting: Feedback multicultural manager run. Initially, patient felt the gain in the left hearing aid was uncomfortably loud, and was making her dizzy. The left ear has poor word discrimination, and she prefers to use a hearing aid on that side mainly for environmental awareness. Gain was turned down significantly on the left side until patient felt the sound was comfortable and balanced. Verifit performed on the right hearing aid and levels adjusted to better reach targets. Patient was pleased with the sound and did not feel any additional adjustments were necessary. Hearing aid care and maintenance were discussed and demonstrated. Hearing aids were paired to her phone and yuri. Recommendations: Patient is an experienced hearing aid user. She will call if follow-up is needed. Diagnosis Code(s): Primary Diagnosis: H90.3 Bilateral Sensorineural Hearing Loss Signature: Provider: Rachael Kim, CCC-A
== END 2021-11-22 12:13 | disposition home or self-care (01) ==
LOC: HO.HAP 12:12
PROVIDERS: Visit Provider Family Medicine
DX: Z46.1 Encounter for fitting and adjustment of hearing aid (principal); H90.3 Sensorineural hearing loss, bilateral
CPT/HCPCS: V5011; V5020; V5160; V5261; V5264; V5266

== ENCOUNTER 2023-09-18 09:14 | Outpatient (REF) | payer MEDICAID, SELFPAY ==
[2023-09-18 11:27] LABS: Basophils Absolute Auto 0.1 X10*3/uL (0.0-0.2); Eosinophils Absolute Auto 0.4 X10*3/uL (0.0-0.4); Eosinophils Percent Auto 4.7 % (0-4); Hematocrit 42.1 % (37.0-47.0); Hemoglobin 13.9 g/dl (12.0-16.0); Imm Gran Abs Auto 0.02 X10*3/uL (0.00-0.03); Imm Gran Pct Auto 0.2 % (0.0-0.4); Lymphocytes Percent Auto 24.4 % (20-40); MANUAL DIFF FLAG SCAN; Mean Corpuscular Hemoglobin 27.8 pg (27.0-33.0); Mean Corpuscular Volume 84.2 fL (80.0-98.0); Monocytes Absolute Auto 0.4 X10*3/uL (0.1-1.2); Monocytes Percent Auto 4.3 % (2-11); Neutrophils Absolute Auto 5.5 x10*3/uL (2.0-8.3); Neutrophils Percent Auto 65.4 % (45-73); PLT CLUMP 1; Red Cell Distribution Width 12.4 % (11.0-16.0); SCAN SMEAR FLAG 1
[2023-09-18 11:41] LABS: Estimated Average Glucose 229 mg/dL; Hemoglobin A1c % 9.6 % (<6.0)
[2023-09-18 11:49] LABS: Mean Platelet Volume 13.2 fL (9.4-12.3); Platelet Count 171 X10*3/uL (160-400); White Blood Count 8.4 X10*3/uL (4.8-10.8)
[2023-09-18 11:50] LABS: SLIDE REVIEW VERIFIED
[2023-09-18 12:07] LABS: Free T4 (Free Thyroxine) 0.85 ng/dL (0.71-1.85)
[2023-09-18 12:14] LABS: Alanine Aminotransferase 19 U/L (0-31); Albumin Level 3.6 g/dL (3.5-5.0); Alkaline Phosphatase 119 U/L (39-117); Anion Gap 14 (12-20); Aspartate Amino Transferase 25 U/L (5-31); Bilirubin Direct 0.1 mg/dL (0.0-0.5); Bilirubin Total 0.3 mg/dL (0.0-1.0); Blood Urea Nitrogen 11 mg/dL (9-16); Calcium 9.2 mg/dL (8.4-10.2); Carbon Dioxide 22 mmol/L (22-29); Chloride 104 mmol/L (96-108); Cholesterol 120 mg/dL (<200); Estimated Glomerular Filt Rate > 60; Glucose Random 162 mg/dL (60-115); HDL Cholesterol 43 mg/dL (>40); LDL Cholesterol Calculated 63 mg/dL (<100); Potassium 4.8 mmol/L (3.3-5.1); Sodium 135 mmol/L (135-145); Total Protein 7.7 g/dL (6.5-8.0); Triglycerides 73 mg/dL (<150)
[2023-09-18 13:21] LABS: CT PCR NOT DETECTED (Not Detect.); NG PCR NOT DETECTED (Not Detect.)
[2023-09-18 13:41] LABS: Vitamin D 25-OH Total 19.5 ng/mL (>30)
[2023-09-21 04:16] LABS: HIV AB/AG Nonreactive (Nonreactive); HIV Num 1 0.07 S/CO (0.00-0.99)
[2023-09-21 04:58] LABS: HBS Num1 37.96 mIU/mL (0-7.99); HBsAGNum1 0.54 S/CO (0.00-0.99); Hepatitis B Surface Antigen Negative (Negative); ~HepC Num1 0.04 S/CO (0.00-0.79); ~Hepatitis B Surface Antibody REACTIVE (Nonreactive); ~Hepatitis C Antibody Nonreactive (Nonreactive)
[2023-09-21 05:46] LABS: Syphilis Screen Nonreactive (Nonreactive)
== END 2023-09-18 09:15 | disposition home or self-care (01) ==
LOC: HO.HHCL 09:14
PROVIDERS: Visit Provider Family Medicine
DX: Z11.4 Encounter for screening for human immunodeficiency virus [HIV] (principal); Z11.3 Encounter for screening for infections with a predominantly sexual mode of transmission; E11.29 Type 2 diabetes mellitus with other diabetic kidney complication; R80.9 Proteinuria, unspecified; K76.0 Fatty (change of) liver, not elsewhere classified
CPT/HCPCS: 0353U; 36415; 80048; 80061; 80076; 82105; 82306; 83036; 84439; 84443; 85025; 86706; 86780; 86803; 87340; 87389

== ENCOUNTER 2023-09-22 09:17 | Outpatient (REF) | payer MEDICAID, SELFPAY ==
--- NOTE | ~2023-09-22 | US_ITS ---
EXAMINATION: US ABDOMEN COMPLETE CLINICAL INFORMATION: Fatty liver follow up. COMPARISON: CT abdomen and pelvis without contrast dated 09/04/2019. Ultrasound abdomen complete dated 05/14/2018 and 11/03/2016. TECHNIQUE: Real-time imaging of the abdominal viscera. Technically difficult study secondary to body habitus. FINDINGS: PANCREAS: Pancreas is limited for evaluation of the pancreatic tail are obscured by bowel gas. The rest of pancreas is unremarkable ABDOMINAL AORTA: The proximal, mid, and distal segments are normal in caliber. INFERIOR VENA CAVA: Visualized portions are normal. LIVER: Liver is abnormal with increased echogenicity due to hepatic steatosis in the right lobe of the liver measured 19.1 cm, enlarged. No focal hepatic lesion. There is no intrahepatic biliary duct dilatation seen. GALLBLADDER: Surgically absent. COMMON BILE DUCT: Normal in caliber measuring 0.80 cm in diameter. RIGHT KIDNEY: Normal. No hydronephrosis. No renal calculi or focal parenchymal lesions. The kidney measures 12.6 cm in maximum dimension. LEFT KIDNEY: Normal. No hydronephrosis. No renal calculi or focal parenchymal lesions. The kidney measures 12.8 cm in maximum dimension. SPLEEN: Normal. The spleen measures 12.2 cm in maximum dimension. FREE FLUID: None. US/US abdomen complete IMPRESSION: Hepatic steatosis and hepatomegaly
== END 2023-09-22 09:18 | disposition home or self-care (01) ==
LOC: HO.HMGCX 09:17
PROVIDERS: PCP Family Medicine; Visit Provider Family Medicine
DX: K76.0 Fatty (change of) liver, not elsewhere classified (principal)
CPT/HCPCS: 76700

== ENCOUNTER 2024-01-15 08:06 | Outpatient (REF) | payer MEDICAID, SELFPAY | END 2024-01-15 08:07 | disposition home or self-care (01) | LOC: HO.MAMMO 08:06 | PROVIDERS: PCP Family Medicine; Visit Provider Family Medicine | DX: Z12.31 Encounter for screening mammogram for malignant neoplasm of breast (principal) | CPT/HCPCS: 77063; 77067 ==

== ENCOUNTER → 2024-01-15 08:15 | Outpatient (BNV) | payer MEDICAID, SELFPAY | PROVIDERS: PCP Family Medicine; Visit Provider Radiology Diagnostic Radiology | DX: Z12.31 Encounter for screening mammogram for malignant neoplasm of breast (principal) | CPT/HCPCS: 77063; 77067 ==

== ENCOUNTER 2024-04-07 08:21 | Outpatient (REF) | payer MEDICAID, SELFPAY ==
[2024-04-07 10:44] LABS: MANUAL DIFF FLAG NO
[2024-04-07 11:34] LABS: Basophils Absolute Auto 0.1 X10*3/uL (0.0-0.2); Basophils Percent Auto 0.8 % (0-2); Eosinophils Absolute Auto 0.2 X10*3/uL (0.0-0.4); Eosinophils Percent Auto 2.4 % (0-4); Hematocrit 41.7 % (37.0-47.0); Hemoglobin 13.7 g/dl (12.0-16.0); Imm Gran Abs Auto 0.02 X10*3/uL (0.00-0.03); Imm Gran Pct Auto 0.2 % (0.0-0.4); Lymphocytes Absolute Auto 2.5 X10*3/uL (1.2-4.9); Lymphocytes Percent Auto 28.2 % (20-40); Mean Corpuscular HGB Conc 32.9 g/dl (31.0-35.0); Mean Corpuscular Volume 85.1 fL (80.0-98.0); Mean Platelet Volume 10.9 fL (9.4-12.3); Monocytes Absolute Auto 0.4 X10*3/uL (0.1-1.2); Monocytes Percent Auto 4.1 % (2-11); Neutrophils Absolute Auto 5.6 x10*3/uL (2.0-8.3); Neutrophils Percent Auto 64.3 % (45-73); Platelet Count 279 X10*3/uL (160-400); Red Cell Distribution Width 12.5 % (11.0-16.0); White Blood Count 8.7 X10*3/uL (4.8-10.8)
[2024-04-07 11:40] LABS: Estimated Average Glucose 143 mg/dL; Hemoglobin A1c % 6.6 % (<6.0)
[2024-04-07 12:01] LABS: Alanine Aminotransferase 20 U/L (0-31); Alkaline Phosphatase 115 U/L (39-117); Anion Gap 10 (12-20); Aspartate Amino Transferase 24 U/L (5-31); Bilirubin Total 0.7 mg/dL (0.0-1.0); Blood Urea Nitrogen 9 mg/dL (9-16); Calcium 9.8 mg/dL (8.4-10.2); Carbon Dioxide 28 mmol/L (22-29); Chloride 105 mmol/L (96-108); Estimated Glomerular Filt Rate > 60; Glucose Random 111 mg/dL (60-115); Potassium 4.1 mmol/L (3.3-5.1); Sodium 139 mmol/L (135-145); Total Protein 7.9 g/dL (6.5-8.0)
== END 2024-04-07 08:22 | disposition home or self-care (01) ==
LOC: HO.LAB 08:21
PROVIDERS: PCP Family Medicine; Visit Provider Nurse Practitioner
DX: Z01.818 Encounter for other preprocedural examination (principal); K21.9 Gastro-esophageal reflux disease without esophagitis; R11.2 Nausea with vomiting, unspecified; E11.9 Type 2 diabetes mellitus without complications
CPT/HCPCS: 36415; 80053; 83036; 85025; 99212

== ENCOUNTER 2024-04-07 08:21 | Outpatient (AMB) | payer MEDICAID, SELFPAY ==
[2024-04-07 09:05] VITALS: BP 113/86; PULSE 75; BMI 44.9
--- NOTE | 2024-04-07 09:05 | A.OFFVIS_ITS ---
Vital Signs 3 04/07/24 09:05 Height 5 ft Weight 229 lb 11.547 oz BMI 44.9 BP 113/86 Blood Pressure Location Rt brachial Position Sitting Pulse 75 Intake Visit Reasons: Colonoscopy Screening Intake Note: Shannon presents to in office visit today for colonoscopy screening. CC: Patient c/o heartburn, nausea, epigastric pain. She is s/p cholecystectomy and takes Omeprazole for GERD. Lumite Injector Required: No Accompanied by: Son Allergies Flexeril Allergy (Unknown, Verified 04/07/24 09:11) palpitations, itching, swelling, tachycardia tramadol [TRAMADOL] Allergy (Unknown, Verified 04/07/24 09:11) ITCHING gabapentin Allergy (Verified 04/07/24 09:11) Rash HPI HPI Colonoscopy Screening: Details: 43 y/o female here for a prep procedural meeting to discuss a screening colonoscopy. She is referred by [facility]. PMX Asthma Morbid obesity-BMI 45 Spina bifida Diabetes Sensorineural hearing loss Hypertension High cholesterol - pt denies GERD Chronic low back pain GEORGE * SURGICAL HISTORY Cholecystectomy Spina bifida back surgery age 6 * ALLERGIES Cyclobenzaprine - itching dizzy, drowsy Tramadol - same as above * [employer] LABS: Less labs 09/2023 we will refresh these TODAY'S VISIT Apparently she is also suffering nausea and she is on Ozempic. The primary care provider is trying to order gastric emptying studies but the patient says she can not do it because she can not get to the hospital by 08:30. She has fairly severe nausea and HB all day long - this even interferes with her taking medications. At times she has to vomit when the HB is bad, which at times is bid but occurring about 2x a week. She has gagging and dry heaves. When she vomits the HB is even worse. She has early satiety. She is a recent dx of NIDDM since 2022. She is on long acting insulin (tresiba) and Ozempic. Her BM's are normal daily and formed. She has had reglan in past but did not tolerate it - can tolerate zofran. Her asthma is controlled and no cardiac. There are no prior problems with anesthesia or sedation. NO ID problems. There is no known FHX of CRC or polyps (but I see her mother Deepti Santos 12/19/1958). On o2o 40mg not helping, switch to pantoprazole 40 bid consider if needs bile binder s/p carlos eduardo going forward. Return office visit in 4 weeks [facility] Medical History (Updated 04/07/24 @ 10:02 by ANN AMRIE Sánchez) Sensorineural hearing loss GERD (gastroesophageal reflux disease) Fatty liver Chronic back pain Morbid obesity Spina bifida No known health problems Surgical History History of cholecystectomy History of back surgery Family History (Updated 04/07/24 @ 09:21 by CHRISTIANNE Kuo) Mother HTN (hypertension) Father Aneurysm Diabetes Stroke Sister HTN (hypertension) Social History Alcohol intake: never Patient Tobacco Use Status: Never used Tobacco Review of Systems Const Denies fatigue, Denies fever(s), Denies night sweats, Reports poor appetite and Denies weight loss Eyes Details: glasses Reports requires corrective lenses ENT Reports Normal hearing present, Denies dysphagia, Denies odynophagia, Denies throat swelling and Denies tongue swelling Card Reports no additional complaints Resp Reports no additional complaints GI Details: Denies abdominal pain, Denies melena, Denies bloating, Denies hematochezia, Denies constipation, Denies GI cramping, Denies dysphagia, Denies excessive flatus, Denies early satiety, Reports heartburn, Denies diarrhea, Reports nausea, Denies odynophagia, Reports vomiting and Denies hematemesis Skin/Breast Denies pruritus, Denies lesions, Denies rash and Denies jaundice Neuro Reports Normal hearing present and Denies Abnormal speech present Endo Denies fatigue Aller/Immun Denies throat swelling and Denies tongue swelling Physical Exam Vital Signs: Last Vital Signs Pulse 75 04/07/24 09:05 BP 113/86 04/07/24 09:05 BMI result Body Mass Index 44.9 Const General: cooperative, no acute distress, well developed and well groomed Nutritional Appearance: well nourished and obese morbidly obese Orientation/consciousness: oriented to person, oriented to place and oriented to time Limitations: No language barrier HEENT Head: Yes normocephalic and Yes atraumatic Eyes General: appearance normal, both eyes and all related structures Pupils: Equal, round and reactive pupils present Neck Neck: Yes normal visual inspection and Yes no lymphadenopathy Thyroid: Thyroid normal Resp Effort & Inspection: normal respiratory effort and able to speak in complete sentences Auscultation: clear to auscultation bilaterally Cardio Rate: regular rate Rhythm: regular rhythm Heart sounds: Normal, physiologic split S2 sound present Peripheral pulses: radial pulses present and posterior tibial pulses present GI Inspection: No distended, Yes Abdominal panniculus present and Yes obesity Palpation (GI): Soft to palpation, nontender, no guarding, not rigid and No hepatosplenomegaly present Percussion: Yes normal to percussion Auscultation: normal bowel sounds Rectal Exam - Female: deferred Abdomen image: 2 1. surgical scars 2. Skin General skin exam: no rashes or lesions noted, turgor normal, skin not dry, no jaundice, No spider nevi and no striae Rashes: no rashes Nails: normal Neuro General: oriented to person, oriented to place and oriented to time Cranial nerves: Yes Equal, round and reactive pupils present and Yes Normal hearing present Speech: No Abnormal speech present Extrem General: Yes normal to inspection, No clubbing, No cyanosis and No edema Psych Appearance: grossly normal and well kempt Mental Status: mental status grossly normal Speech and movement: Normal speech and movement present Affect: normal affect Attitude: cooperative Thought process: Normal thought process present and not confabulating Thought content: Normal thought content present Insight: Limited insight present (Psych) Judgement: Limited judgement present (Psych) Assessment & Plan Assessment & Plan (1) Pre-op examination: Code(s): Z01.818 - Encounter for other preprocedural examination Category: Medical (2) GERD (gastroesophageal reflux disease): Code(s): K21.9 - Gastro-esophageal reflux disease without esophagitis Category: Medical (3) Nausea and vomiting: Code(s): R11.2 - Nausea with vomiting, unspecified Category: Medical (4) Diabetes: Code(s): E11.9 - Type 2 diabetes mellitus without complications Category: Medical Plan Apparently she is also suffering nausea and she is on Ozempic. The primary care provider is trying to order gastric emptying studies but the patient says she can not do it because she can not get to the hospital by 08:30. She has fairly severe nausea and HB all day long - this even interferes with her taking medications. At times she has to vomit when the HB is bad, which at times is bid but occurring about 2x a week. She has gagging and dry heaves. When she vomits the HB is even worse. She has early satiety. She is a recent dx of NIDDM since 2022. She is on long acting insulin (tresiba) and Ozempic. Her BM's are normal daily and formed. She has had reglan in past but did not tolerate it - can tolerate zofran. Her asthma is controlled and no cardiac. There are no prior problems with anesthesia or sedation. NO ID problems. There is no known FHX of CRC or polyps (but I see her mother Deepti Santos 12/19/1958). On o2o 40mg not helping, switch to pantoprazole 40 bid consider if needs bile binder s/p carlos eduardo going forward. Return office visit in 4 week Orders: Orders 2 Comprehensive Met. Panel Today Z01.818 - Encounter for other preprocedural examination H pylori Ag Stool Today K21.9 - Gastro-esophageal reflux disease without esophagitis, R11.2 - Nausea with vomiting, unspecified Complete Blood Count Auto Diff Today Z01.818 - Encounter for other preprocedural examination FL upper GI small bowel Today Z01.818 - Encounter for other preprocedural examination EGD/[place] Combo - GI Use Only Today Z01.818 - Encounter for other preprocedural examination Hemoglobin A1c Today E11.9 - Type 2 diabetes mellitus without complications Medications: New 2 peg 3350-electrolytes 236-22.74-6.74 -5.86 gram (Golytely) until fecal effluent is clear; do not exceed a total volume of 2,000 mL 240 mL PO Q10M 1 day 4,000 mL 0RF Z12.11 - Encounter for screening for malignant neoplasm of colon bisacodyl (Dulcolax (bisacodyl)) 10 mg (2 x 5 mg) PO BEDTIME 2 days 4 tabs 0RF pantoprazole (Protonix) 40 mg PO BID 30 days 60 tabs 3RF pantoprazole (Protonix) 40 mg PO BID 60 tabs 3RF 30 days bisacodyl (Dulcolax (bisacodyl)) 10 mg (2 x 5 mg) PO BEDTIME 4 tabs 0RF 2 days peg 3350-electrolytes 236-22.74-6.74 -5.86 gram (Golytely) until fecal effluent is clear; do not exceed a total volume of 2,000 mL 240 mL PO Q10M 4,000 mL 0RF 1 day Z12.11 - Encounter for screening for malignant neoplasm of colon Coding Level of Care Code New Pt Level 3 (20047) Diagnoses Pre-op examination Z01.818 GERD (gastroesophageal reflux disease) K21.9 Nausea and vomiting R11.2 Diabetes E11.9
== END 2024-04-07 10:05 | disposition home or self-care (01) ==
PROVIDERS: PCP Family Medicine; Visit Provider Nurse Practitioner
DX: Z01.818 Encounter for other preprocedural examination (principal); K21.9 Gastro-esophageal reflux disease without esophagitis; R11.2 Nausea with vomiting, unspecified; E11.9 Type 2 diabetes mellitus without complications
CPT/HCPCS: 99203

== ENCOUNTER 2024-04-15 09:06 | Outpatient (REF) | payer MEDICAID, SELFPAY | END 2024-04-15 09:07 | disposition home or self-care (01) | LOC: HO.LNP 09:06 | PROVIDERS: Visit Provider Nurse Practitioner | DX: R11.2 Nausea with vomiting, unspecified (principal); K21.9 Gastro-esophageal reflux disease without esophagitis | CPT/HCPCS: 87338 ==

== ENCOUNTER 2024-04-19 09:00 | Outpatient (RCR) | payer MEDICAID, SELFPAY | END 2024-07-06 16:08 | disposition home or self-care (01) | LOC: HO.PT 09:00 | PROVIDERS: PCP Family Medicine; Visit Provider Family Medicine | DX: M54.41 Lumbago with sciatica, right side (principal) | CPT/HCPCS: 97110; 97163 ==

== ENCOUNTER 2024-06-08 10:46 | Outpatient (REF) | payer MEDICAID, SELFPAY ==
[2024-06-08 14:29] LABS: Creatinine Urine 143.72 mg/dL; Microalbum/Creatinine Ratio Ur 15.3 ug/mg cr (<30)
== END 2024-06-08 10:47 | disposition home or self-care (01) ==
LOC: HO.HHCL 10:46
PROVIDERS: Visit Provider Family Medicine
DX: E11.29 Type 2 diabetes mellitus with other diabetic kidney complication (principal); R80.9 Proteinuria, unspecified; Z79.4 Long term (current) use of insulin
CPT/HCPCS: 82043; 82570

== ENCOUNTER 2024-06-21 11:27 | Outpatient (REF) | payer MEDICAID, SELFPAY ==
--- NOTE | ~2024-06-21 | XR_ITS ---
EXAMINATION: Bilateral knee series CLINICAL INFORMATION: Worsening pain in both knees COMPARISON: X-ray of the left knee October 2017. X-ray of the right femur November 2020 TECHNIQUE: 4 views of each knee FINDINGS: Right knee: Patellofemoral compartment: Question subchondral cyst in the patella. No joint space narrowing and marginal osteophytes. The medial lateral compartments are normal and no effusion. Left knee: The bones or soft tissues are normal. No effusion. XR/XR knee LT 4V IMPRESSION: RIGHT KNEE: Suspect mild osteoarthritis of the patellofemoral joint. LEFT KNEE: Normal. Electronically signed by: James Redd MD 07/18/2024 01:09 PM EDT
--- NOTE | ~2024-06-21 | XR_ITS ---
EXAMINATION: Bilateral knee series CLINICAL INFORMATION: Worsening pain in both knees COMPARISON: X-ray of the left knee October 2017. X-ray of the right femur November 2020 TECHNIQUE: 4 views of each knee FINDINGS: Right knee: Patellofemoral compartment: Question subchondral cyst in the patella. No joint space narrowing and marginal osteophytes. The medial lateral compartments are normal and no effusion. Left knee: The bones or soft tissues are normal. No effusion. XR/XR knee RT 4V IMPRESSION: RIGHT KNEE: Suspect mild osteoarthritis of the patellofemoral joint. LEFT KNEE: Normal. Electronically signed by: James Redd MD 07/18/2024 01:09 PM EDT
== END 2024-06-21 11:28 | disposition home or self-care (01) ==
LOC: HO.HHCX 11:27
PROVIDERS: Visit Provider Family Medicine
DX: G89.29 Other chronic pain (principal); M25.562 Pain in left knee; M25.561 Pain in right knee
CPT/HCPCS: 73564

== ENCOUNTER 2024-07-07 08:33 | Outpatient (REF) | payer MEDICAID, SELFPAY ==
--- NOTE | ~2024-07-07 | CT_ITS ---
EXAMINATION: CT LUMBAR SPINE WITHOUT CONTRAST CLINICAL INFORMATION: Worsening, severe low back pain. 44-year-old female. COMPARISON: No prior CT or MRI. X-ray lumbar 04/16/2017. TECHNIQUE: CT imaging of the lumbar spine was done without IV contrast, utilizing spiral technique. Sagittal, coronal, and thin section axial reformatted images were constructed from the axial data set. This CT examination was performed using dose optimization techniques as appropriate, variously including the following: *Automated exposure control *Adjustment of mA and/or kV according to patient size (this includes techniques or standardized protocols for targeted exams where dose is matched to indication/reason for exam; i.e. 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 The facet joints on the right are are slightly bony fused. Central fusion of the lamina. -At L5-S1, there is a transitional level with fusion of the posterior elements bilaterally, of which the left transverse process fully fused with the left sacral wing, and complete fusion of both bony facets. This results in a leftward sacral tilt, with the left sacral wing having a somewhat dysplastic appearance. -L5 is somewhat wedge-shaped and hypoplastic sagittally. -Open neural tube defect beginning at S3 on the left and extending through the remainder of the sacrum. (Spina bifida occulta). -These congenital findings finding result in a mild levoconvex scoliosis apex at L3. -Straightening of the normal lordosis is present. There is a 2 mm retrolisthesis of L2 on L3. -Coronal plane, there is a minimal right lateral listhesis measuring 3 mm of L2 on L3. -No additional subluxations. -Given the congenital abnormalities and ambiguity of level counting, verification of levels is highly recommended before undertaking intervention. Hypoplastic L5 is confirmed by the iliolumbar ligaments. VERTEBRAL BODIES/BONE: -Congenital anomalies as above. -No acute fractures or compression deformities. DISCS: -Hypoplastic disc space which is partially fused bilaterally posterolaterally at L1-L2. -Widening of the posterior T12-L1 disc space due to butterfly vertebra. -Hypoplastic disc space L5-S1 with partial bony fusion left greater than right posteriorly. -Mild to moderate narrowing of the L2-3 disc, and mild degenerative change of the L3-4 disc. SPINAL CANAL: -No evidence of significant central canal stenosis. See below. -Fatty filum terminale which is thickened, beginning at the superior endplate of L4 suggesting tethered cord. AXIAL DISC SPACE IMAGES: T12-L1: L1 butterfly vertebra. There is a right lateral protrusion of disc material, resulting in mild central canal stenosis and mild to moderate right lateral recess stenosis. Neural foramina are widely patent. L1-L2: Segmentation/fusion anomaly of L1-L2 with hypoplastic disc space, complete fusion of the left pedicles, left facets, central lamina, and right facet joints. There is a shallow cortical bulge left paracentral and lateral, with the combination of findings resulting in mild central stenosis, significant subarticular recess stenosis on the left, and severe left neural foraminal stenosis. There is moderate right neural foraminal narrowing. L2-L3: Subtle retrolisthesis, shallow diffuse disc osteophytic bulge, asymmetrically prominent to the right and into the right neural foramen, also extending left foraminal and lateral to foramen. 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 L3-L4: Left foraminal disc protrusion, results in moderate to severe left neural foraminal stenosis. No central canal stenosis. There is mild right neural foraminal stenosis. L4-L5: Diffuse bulging disc, symmetrically extending into both foraminal zones, indenting on the ventral thecal sac and resulting in mild to moderate central canal stenosis. Subarticular recesses are patent. There is mild left and moderate right neural foraminal stenosis. L5-S1: Hypoplastic partially fused disc space, with bilaterally dysplastic and diffuse facets left greater than right. No central canal stenosis. Probable accessory nerve root and would be expected to be the S1 foramen on the left. This is difficult to elucidate on CT and MR would be a preferred modality. There is severe bilateral neural foraminal stenosis, which appears congenital. IMAGED SI JOINTS: -Moderate to advanced degenerative arthrosis with vacuum phenomenon bilaterally. PARAVERTEBRAL AND INCLUDED EXTRASPINAL SOFT TISSUES: -Lung bases clear. -Aorta normal in caliber. -And imaged retroperitoneal and intraperitoneal structures normal. CT/CT lumbar spine wo IV con IMPRESSION: 1. 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 See above. Findings result in a mild levoconvex scoliosis, apex at L3, and a straightening of the normal lordosis. 2. No acute bony abnormalities. 3. No evidence of significant disc herniation, or significant central canal stenosis. Fatty filum terminale which is thickened, beginning at of the superior endplate of L4, suggesting tethered cord. 4. On the left, congenital findings result in there is near obliteration of the neural foramen at L1-L2, as well as severe narrowing L5-S1 foramen due to congenital findings. Moderate to severe narrowing left L2-3 and L3-4 foramen. 5. On the right, congenital findings result in moderate narrowing of L1-2 neural foramen, and severe narrowing L5-S1 foramen. There is moderate to severe narrowing of the right L2-3 neural foramen. 6. Probable supernumerary/accessory nerve root on the left at the L5-S1 level. This is difficult to elucidate on CT and MR would be preferred modality. 7. Significant degenerative disease of both SI joints with vacuum phenomenon present. 8. See the body the report for details and ancillary findings. Electronically signed by: Lewis Chakraborty MD 09/02/2024 04:30 PM EDT
== END 2024-07-07 08:34 | disposition home or self-care (01) ==
LOC: HO.CT 08:33
PROVIDERS: PCP Family Medicine; Visit Provider Family Medicine
DX: M54.41 Lumbago with sciatica, right side (principal); G89.29 Other chronic pain
CPT/HCPCS: 72131

== ENCOUNTER → 2024-07-07 08:36 | Outpatient (BNV) | payer MEDICAID, SELFPAY | PROVIDERS: PCP Family Medicine; Visit Provider Radiology Diagnostic Radiology | DX: M54.50 Low back pain, unspecified (principal) | CPT/HCPCS: 72131 ==

== ENCOUNTER 2024-07-13 10:43 | Outpatient (REF) | payer MEDICAID, SELFPAY ==
[2024-07-13 12:44] LABS: CT PCR NOT DETECTED (Not Detect.); NG PCR NOT DETECTED (Not Detect.)
[2024-07-13 13:36] LABS: Hematocrit 40.9 % (37.0-47.0); Hemoglobin 13.4 g/dl (12.0-16.0); Mean Corpuscular HGB Conc 32.8 g/dl (31.0-35.0); Mean Corpuscular Hemoglobin 27.9 pg (27.0-33.0); Mean Corpuscular Volume 85.2 fL (80.0-98.0); Mean Platelet Volume 11.6 fL (9.4-12.3); Platelet Count 287 X10*3/uL (160-400); Red Cell Distribution Width 12.6 % (11.0-16.0); White Blood Count 7.1 X10*3/uL (4.8-10.8)
[2024-07-13 14:02] LABS: Alanine Aminotransferase 17 U/L (0-31); Alkaline Phosphatase 100 U/L (39-117); Anion Gap 11 (12-20); Aspartate Amino Transferase 20 U/L (5-31); Bilirubin Direct 0.3 mg/dL (0.0-0.5); Bilirubin Total 0.7 mg/dL (0.0-1.0); Blood Urea Nitrogen 9 mg/dL (9-16); Calcium 9.2 mg/dL (8.4-10.2); Carbon Dioxide 25 mmol/L (22-29); Chloride 106 mmol/L (96-108); Cholesterol 124 mg/dL (<200); Estimated Glomerular Filt Rate > 60; Glucose Random 111 mg/dL (60-115); HDL Cholesterol 48 mg/dL (>40); LDL Cholesterol Calculated 67 mg/dL (<100); Sodium 138 mmol/L (135-145); Total Protein 7.7 g/dL (6.5-8.0); Triglycerides 47 mg/dL (<150)
[2024-07-13 14:04] LABS: Estimated Average Glucose 143 mg/dL; Hemoglobin A1c % 6.6 % (<6.0)
[2024-07-13 14:08] LABS: Free T4 (Free Thyroxine) 0.86 ng/dL (0.71-1.85); Thyroid Stimulating Hormone 0.98 uIU/mL (0.32-4.0); Vitamin D 25-OH Total 21.7 ng/mL (>30)
[2024-07-14 04:32] LABS: HBS Num1 198.27 mIU/mL (0-7.99); HBc Num1 0.14 S/CO (0.00-0.79); HBsAGNum1 0.29 S/CO (0.00-0.99); HIV AB/AG Nonreactive (Nonreactive); HIV Num 1 0.06 S/CO (0.00-0.99); Hepatitis B Core Antibody Nonreactive (Nonreactive); Hepatitis B Surface Antigen Negative (Negative); ~HepC Num1 0.11 S/CO (0.00-0.79); ~Hepatitis B Surface Antibody REACTIVE (Nonreactive); ~Hepatitis C Antibody Nonreactive (Nonreactive)
[2024-07-14 04:33] LABS: Hepatitis A Antibody IgG REACTIVE (Nonreactive); ~Hepatitis A Antibody IgG 12.81 S/CO (0.00-0.99)
[2024-07-15 12:38] LABS: Alpha Fetoprotein 2.9 ng/mL; RPR Rapid Plasma Reagin NON-REACTIVE (NON-REACTIVE)
== END 2024-07-13 10:44 | disposition home or self-care (01) ==
LOC: HO.HHCL 10:43
PROVIDERS: Visit Provider Family Medicine
DX: Z00.00 Encounter for general adult medical examination without abnormal findings (principal); E11.29 Type 2 diabetes mellitus with other diabetic kidney complication; R80.9 Proteinuria, unspecified; I10 Essential (primary) hypertension; E78.49 Other hyperlipidemia; K76.0 Fatty (change of) liver, not elsewhere classified; M54.41 Lumbago with sciatica, right side; G89.29 Other chronic pain; J45.30 Mild persistent asthma, uncomplicated; R11.0 Nausea; M25.561 Pain in right knee; M25.562 Pain in left knee; R21 Rash and other nonspecific skin eruption; Z79.4 Long term (current) use of insulin
CPT/HCPCS: 36415; 80048; 80061; 80076; 82043; 82105; 82306; 82570; 83036; 84439; 84443; 85027; 86592; 86704; 86706; 86708; 86803; 87340; 87389; 87491; 87591

== ENCOUNTER 2025-02-02 10:46 | Outpatient (AMB) | payer MEDICAID, SELFPAY ==
--- NOTE | 2025-02-02 10:51 | HO.SPINEOV ---
Vital Signs 02/02/25 11:13 Height 5 ft 1 in Weight 220 lb BMI 41.6 Intake Visit Reasons: chronic low back pain Intake Note: Ms. Santos is here today c/o low back pain. Front Office Coordinator Required: No Allergies Flexeril Allergy (Unknown, Verified 02/02/25 11:14) palpitations, itching, swelling, tachycardia tramadol [TRAMADOL] Allergy (Unknown, Verified 02/02/25 11:14) ITCHING gabapentin Allergy (Verified 02/02/25 11:14) Rash Physical Exam Vital Signs: BMI result Body Mass Index 41.6 Assessment & Plan Assessment & Plan (1) Spina bifida: Code(s): Q05.9 - Spina bifida, unspecified Category: Medical Plan Dear colleague, Thank you for referring Shannon to our office today. She is a pleasant 44-year-old female who comes in today with a chief complaint of low back pain which has been persistent for many years. She identifies an inciting incident for her low back pain as two surgeries she had when she was 6 and 7 years old at [facility] in [facility]. She states she had the surgeries for correction of her spina bifida. Unfortunately since then she has had fairly significant low back pain that plauged her adolescence and her adult life. When describing the pain she runs her hands and axial fashion across her low back. She does also report some intermittent leg pain which she reports shoots down the front and back of her legs. She reports the pain shoots in a fairly diffuse manner down both legs, terminating in her feet. She also reports intermittent tingling associated with the pain in her legs. She denies any positional changes related to the pain. She denies any aggravating/alleviating factors. She reports she has been on a plethora of medications in an attempt to treat the pain including narcotic pain control, muscle relaxers, nerve blockers; speo-myx-aalimqo meds like Tylenol, naproxen, ibuprofen, and lidocaine patches. She has been to many rounds of physical therapy over the years, completing the most recent about 2 months ago. She also has had several injections in her low back, reports she does not remember where they were done and states they were done many years ago. Lastly, she denies any gait disturbances, significant leg weakness, or urinary/bowel issues. PMH: Asthma, seasonal allergies, vitamin-D deficiency, type 2 diabetes (unknown last A1c), high blood pressure, GERD, obesity. Social hx: Patient does not smoke, reports no substance use. Medications: See [employer] list. Allergies: Flexeril, tramadol, gabapentin. Physical exam: The patient has 5/5 strength in her upper and lower extremities, but does elicit pain to full strength testing in her lower extremities. She has no significant sensational deficits on exam. Her bilateral patellar reflexes are hypoactive, but the rest of her reflexes are 2+ intact. She ambulates well and rises from a seated position without difficulty. (-) bilateral straight leg raise, (-) clonus, (-) Rodriguez's. Imaging review: CT scan of the lumabr spine completed here at [facility] 07/07/24. There is partial autofusion of L1-2 and L5-S1. Radiology is calling this a congenital abnormality. Moderate central canal stenosis seen at L2-3, with probably moderate right sided foraminal stenosis at this level. Impression: Shannon is a pleasant 44-year-old female who comes in today with a chief complaint of primarily chronic longstanding low back pain. Of note she is unable to tolerate MRI imaging, and has tried to have MRIs completed of her lumbar spine many times, even with open MRI machines and has been unable to tolerate having them completed. We discussed the potential surgical options to treat conditions such as hers, however she expressed no interest in having repeat surgery completed to correct any of the deformity in her spine related to her spina bifida. In the absence of severe neurological deficit I do not believe she is required to undergo any specific type of surgery at this time. We then turned our focused towards potential conservative treatments for her condition, and I recommended the possibility of seeing our colleagues in pain management to discuss a spinal cord stimulator. I do not know if she would be a candidate for this, but it may be a reasonable option for her pain control. I would also be interested to see what other potential treatment options they may have for pain that are more conservative than surgery. She is always welcome to see us again for subsequent follow-up if she needs to. Thank you for allowing us to care for your patient. The total time spent with this visit with this patient was 45 minutes reviewing history, physical exam, MRI imaging review, and implementation of treatment plan or further diagnostic testing Gabriel Rodriguez MD,PhD [facility] Orders: Referrals Pain Management Referral Q05.9 - Spina bifida, unspecified Coding Level of Care Code New Pt Level 4 (56922) Diagnoses Spina bifida Q05.9
[2025-02-02 11:13] VITALS: BMI 41.6
--- OUTSIDE RECORDS SUMMARY | 2025-02-02 12:36 | XMS_ITS | Encounter Summary ---
Author Organization [employer] Address [address] [facility] [address] [place] [address] Care Team Providers Care Economics Lecturer Name Role Phone Kathy Valverde DO Primary Care Provider [phone] Haydee Deluca PharmD Unavailable [phone] Reason for Visit * Reason Comments Med Refill Encounter Details Date Type Department Care Team ([facility] st Contact Info) Description 01/12/[address] [facility] [address] [place], [place] [id number] Kathy Valverde DO [address] [facility] [place] [address] Seasonal allergic rhinitis, unspecified trigger; Asthma, unspecified asthma severity, unspecified whether complicated, unspecified whether persistent Social History Tobacco Use Types Packs/Day Years Used Date Smoking Tobacco: Never Passive Smoke Exposure: Never Smokeless Tobacco: Never Alcohol Use Standard Drinks/Week Comments Not Currently 0 (1 standard drink = 0.6 oz pur e alcohol) Depression Answer Date Recorded Patient Health Questionnaire-9 Score 0 09/17/2023 Patient Health Questionnaire-9 Score 0 09/17/2023 Last PHQ-9: Questionnaire Data Not on file 1 11/17/2022 Housing Stability Answer Date Recorded What is your housing situation today? I have maicol victoria 09/17/[address] you li ve. Do you have problems with any of the following? None of the above 09/17/2023 Food Insecurity Answer Date Recorded Within the past 12 months, y ou worried that your food would run out before you got money to buy more: Never True 09/17/2023 Within the past 12 months,th e food you bought just didn't last and you didn't have enough money to get more: Never True 12/2022 Transportation Answer Date Recorded In the past 12 months, has l ack of transportation kept you from medical appts, meetings, work or from getting things needed for daily living? No 09/17/2023 Utilities Answer Date Recorded In the past 12 months, has t he electric, gas, oil or water company threatened to shut off services in your home? No 09/17/2023 Depression Answer Date Recorded Patient Health Questionnaire-2 Score 0 09/17/2023 Comments No Sex and Gender Information Value Date Recorded Sex Assigned at Female 09/15/2022 10:19 AM EDT Legal Sex Female 10:19 AM EDT Gender Identity Female 09/15/2022 10:19 AM EDT Sexual Orientation Straight 09/15/2022 10 :19 AM EDT documented as of this encounter Plan of Treatment Not on file documented as of this encounter Goals Goal Patient Goal Type Associated Problems Recent Progress Patient-Stated? Author Hemoglobin A1c < 7 Result Component 5.7( 5 10:31 AM EDT) No HannyiaHaydee, PharmD Record your blood sugar as directed Result Component No PuiaRamírezHaydee, PharmD documented as of this encounter Visit Diagnoses Diagnosis Seasonal allergic rhinitis, unspecified trigger Asthma, unspecified asthma severity, unspecified whether complicated, unspecified whether persistent documented in this encounter Additional Health Concerns Assessment Noted Time PHQ-9 Depression Total Score: 0 09/17/20 23 9:47 AM EDT documented as of this encounter Care Teams Economics Lecturer Relationship Specialty Start Date End Date Kathy Valverde DO [address] [place] [address] PCP - General Family Medicine 11/16/18 Haydee Deluca, PharmD [address] [place] [address] Pharmacist Internal Medicine 12/03/23 documented as of this encounter
--- OUTSIDE RECORDS SUMMARY | 2025-02-02 12:36 | XMS_ITS | Encounter Summary ---
Author Organization [employer] Address [address] [place] [address] [address] [place] [address] Care Team Providers Care High School Teacher Name Role Phone Kathy Valverde DO Primary Care Provider [phone] Haydee Deluca PharmD Unavailable Encounter Details Date Type Department Care Team ([facility] Contact Info) Description 10/30/2022 Telephone [facility] [address] [place], [place] [phone] Kathy Valverde DO [address] [place] [address] Social History Tobacco Use Types Packs/Day Years Used Date Smoking Tobacco: Never Assessed Comments Unknown Sex and Gender Information Value Date Recorded Sex Assigned at Female 09/15/2022 10:19 AM EDT Legal Sex Female 10:19 AM EDT Gender Identity Female 09/15/2022 10:19 AM EDT Sexual Orientation Straight 09/15/2022 10 :19 AM EDT COVID-19 Exposure Response Date Recorded In the last 10 days, have yo u been in contact with someone who was confirmed or suspected to have Coronavirus/COVID-19? Unable to assess 10/30/2022 10: 20 AM EST documented as of this encounter Plan of Treatment Not on file documented as of this encounter Visit Diagnoses Not on filedocumented in this encounter Care Teams High School Teacher Relationship Specialty Start Date End Date Kathy Valverde DO [address] [place], [place] [phone] PCP - General Family Medicine 11/16/18 Haydee Deluca, EugeneD [address] [place] [id number] Pharmacist Internal Medicine 12/03/23 documented as of this encounter
--- OUTSIDE RECORDS SUMMARY | 2025-02-02 12:36 | XMS_ITS | Encounter Summary ---
Author Organization [employer] Address [address] [facility] [address] [place] [address] Care Team Providers Care Grain Elevator Motor Starter Name Role Phone Kathy Valverde DO Primary Care Provider [phone] Haydee Deluca PharmD Unavailable [phone] Encounter Details Date Type Department Care Team ([facility] st Contact Info) Description 01/30/2025 10:30 AM EDT Office Visit [facility] [address] [place] [address] Kathy Valverde DO [address] [place] [address] Type 2 diabetes mellitus with diabetic microalbuminuria, with long-term current use of insulin ([facility]) (Primary Dx); Essential hypertension; Other hyperlipidemia; Fatty liver; Anxiety and depression; Chronic low back pain with right-sided sciatica, unspecified back pain laterality; Chronic pain of both knees; Mild persistent asthma without complication; Chronic GERD; Healthcare maintenance; Screening for colon cancer Social History Tobacco Use Types Packs/Day Years Used Date Smoking Tobacco: Never Passive Smoke Exposure: Never Smokeless Tobacco: Never Alcohol Use Standard Drinks/Week Comments Not Currently 0 (1 standard drink = 0.6 oz pur e alcohol) Depression Answer Date Recorded Patient Health Questionnaire-9 Score 13 01/30/2025 Patient Health Questionnaire-9 Score 13 01/30/2025 Last PHQ-9: Questionnaire Data Not on file 0 01/30/2025 Housing Stability Answer Date Recorded What is [...] Answer Date Recorded Patient Health Questionnaire-2 Score 2 01/30/2025 Comments No Sex and Gender Information Value Date Recorded Sex Assigned at Female 09/15/2022 10:19 AM EDT Legal Sex Female 10:19 AM EDT Gender Identity Female 09/15/2022 10:19 AM EDT Sexual Orientation Straight 09/15/2022 10 :19 AM EDT documented as of this encounter Last Filed Vital Signs Vital Sign Reading Time Taken Comments Blood Pressure 128/78 01/30/2025 10:28 AM EDT Pulse 76 01/30/2025 10:28 AM EDT Temperature 36.2 ??C (97.2 ??F) 01/30/2025 10:28 AM E DT Respiratory Rate 21 01/30/2025 10:28 AM EDT Oxygen Saturation 99% 01/30/2025 10:28 AM EDT Inhaled Oxygen Concentration - - Weight 103 kg (226 lb 2 oz) 01/30/2025 10:28 AM EDT Height 154.9 cm (5' 1 ) 01/30/2025 10:28 AM EDT Body Mass Index 42.73 01/30/2025 10:28 AM EDT documented in this encounter Plan of Treatment Scheduled Orders Name Type Priority Associated Diagnoses Orde r Schedule Helicobacter pylori??Antigen, EIA, Stool Lab Routine Chronic GERD Expected: 01/30/2025, Expires: 01/30/2026 Cologuard?? colon cancer screening Lab Routine Screening for colon cancer Ordered: 01/30/2025 documented as of this encounter Goals Goal Patient Goal Type Associated Problems Recent Progress Patient-Stated? Author Hemoglobin A1c < 7 Result Component 5.7( 10:31 AM EDT) No Haydee Deluca PharmD Record your blood sugar as directed Result Component No Haydee Deluca PharmD documented as of this encounter Procedures Procedure Name Priority Date/Time Associated Diagnosis Comments POCT GLYCATED HEMOGLOBIN, TOTAL Routine 01/30/2025 10:31 AM EDT Type 2 diabetes mellitus with diabetic microalbuminuria, with long-term current use of insulin ([facility]) POCT GLUCOSE Routine 01/30/2025 10:30 AM EDT Type 2 diabetes mellitus with diabetic microalbuminuria, with long-term current use of insulin ([facility]) documented in this encounter Results * POCT HGB A1C (01/30/2025 10:31 AM EDT) Hemoglobin A1C 5.7 4.0 - 6.0 % QC Media Lot # [id number] Lot# Expiration Date Blood 01/30/2025 10:3 1 AM EDT Kathy Valverde DO POINT OF CARE TEST ENTER/CAESAR T ORDERABLES Final Result * POCT Glucose (01/30/2025 10:30 AM EDT) Glucose Blood, POC 91 60 - 200 mg/dL QC [employer] Lot # [id number] Lot# Expiration Date Blood Capillary blood specimen / Unknown 01/30/2025 10:30 AM EDT Kathy Valverde DO POINT OF CARE TEST ENTER/CAESAR T ORDERABLES Final Result documented in this encounter Visit Diagnoses Diagnosis Type 2 diabetes mellitus with diabetic microalbuminuria, with long-term current use of insulin ([facility])- Primary Essential hypertension Unspecified essential hypertension Other hyperlipidemia Fatty liver Other chronic nonalcoholic liver disease Anxiety and depression Chronic low back pain with right-sided sciatica, unspecified back pain laterality Chronic pain of both knees Mild persistent asthma without complication Chronic GERD Healthcare maintenance Screening for colon cancer Special screening for malignant neoplasms, colon documented in this encounter Additional Health Concerns Assessment Noted Time PHQ-9 Depression Total Score: 13 01/30/ 025 11:12 AM EDT documented as of this encounter Care Teams Grain Elevator Motor Starter Relationship Specialty Start Date End Date Kathy Valverde DO [address] [place] [address] PCP - General Family Medicine 11/16/18 Haydee Delcua PharmD [address] [place] [address] Pharmacist Internal Medicine 12/03/23 documented as of this encounter
--- OUTSIDE RECORDS SUMMARY | 2025-02-02 12:36 | XMS_ITS | Encounter Summary ---
Author Organization [employer] Address [address] [facility] 7t [place] [address] Care Team Providers Care Nut Sorter Name Role Phone Kathy Valverde DO Primary Care Provider [phone] Haydee Deluca PharmD Unavailable [phone] Reason for Visit * Reason Onset Date Comments Nurse Triage 09/28/2024 Encounter Details Date Type Department Care Team ([facility] st Contact Info) Description 09/28/2024 Telephone [facility] MEDICINE [address] [place] [address] Kathy Valverde DO [address] [place] [address] Nurse Triage Social History Tobacco Use Types Packs/Day Years [...] AM EDT documented as of this encounter Miscellaneous Notes * Telephone Encounter - Olga Lidia Clark - 09/28/2024 3:34 PM EST Pharmacy is requesting an updated CDTM referral with a diagnosis of diabetes E11.9 Type 2 diabetes mellitus without complication, with long-term current use of insulin. This is to replace existing referral that no longer meets visit requirements. Please send at your earliest convenience. Thank you! * Telephone Encounter - Elva Rosa RN - 09/28/2024 9:21 AM EST Triage call Pt reports nasal congestion with clear drainage. Pt reports unable to sleep because canonly breathe through mouth and mouth gets very dry. Pt is supposed to be taking zyrtec but , has not had that medication and is waiting for refill. OTC medications don't work for Pt. Neg for fever but, Pt reports dizziness, itchy eyes, throat, ears. Neg for headache. Pt is offered to come to [facility] malu seen by provider, no apts available in offices this week. Pt agrees with disposition, hours for WIC open till 8pm today. Insurance is verified as active. Protocol Used: Sinus Pain or Congestion (Adult) Protocol-Based Disposition: See in Office or Video Visit Today or Tomorrow Video visit not offered Positive Triage Question: * Nasal discharge present > 10 days * All higher-acuity triage questions were negative Care Advice Discussed: * Reassurance and Education - Colds and Sinus Congestion * For a Runny Nose - Blow Your Nose * Hydration * Reasons To Call Back - Severe pain lasts over 2 hours after pain medicine - Sinus pain lasts over 1 day after using nasal washes - Sinus congestion (fullness) lasts over 10 days - Fever lasts over 3 days - You become worse * Telephone Encounter - Grecia Case - 09/28/2024 8:55 AM EST Symptoms: Sinus Symptoms, Itching - No Rash Outcome: Schedule an urgent appointment (within 4 hours) or talk to a nurse or provider soon Reason: Severe itching now The caller accepted this outcome. Contact pt at [phone] documented in this encounter Plan of Treatment Not on file documented as of this encounter Goals Goal Patient Goal Type Associated Problems Recent Progress Patient-Stated? Author Hemoglobin A1c < 7 Result Component 5.7( 5 10:31 AM EDT) No Puia, Haydee, PharmD Record your blood sugar as directed Result Component No Puia, Haydee, PharmD documented as of this encounter Visit Diagnoses Not on filedocumented in this encounter Additional Health Concerns Assessment Noted Time PHQ-9 Depression Total Score: 0 09/17/20 23 9:47 AM EDT documented as of this encounter Care Teams Nut Sorter Relationship Specialty Start Date End Date Kathy Valverde DO [address] [place] [address] PCP - General Family Medicine 11/16/18 Hannyia, Haydee, PharmD [address] [place] [address] Pharmacist Internal Medicine 12/03/23 documented as of this encounter
--- OUTSIDE RECORDS SUMMARY | 2025-02-02 12:36 | XMS_ITS | Encounter Summary ---
Author Organization [employer] Address 75 [facility] 7t h Floor [place] [id number] Care Team Providers Care Food Tray Assembler Name Role Phone Kathy Valverde DO Primary Care Provider [phone] Haydee Deluca PharmD Unavailable [phone] Reason for Visit * Reason Onset Date Comments Med Refill 07/01/2024 Encounter Details Date Type Department Care Team ([facility] st Contact Info) Description 07/01/2024 Refill [facility] MEDICINE [address] [place] [address] Kathy Valverde DO [address] [place] [address] Asthma, unspecified asthma severity, unspecified whether complicated, [...] Result Component 5.7( 10:31 AM EDT) No Puia, Haydee, PharmD Record your blood sugar as directed Result Component No Puia, Haydee, PharmD documented as of this encounter Visit Diagnoses Diagnosis Asthma, unspecified asthma severity, unspecified whether complicated, unspecified whether persistent documented in this encounter Additional Health Concerns Assessment Noted Time PHQ-9 Depression Total Score: 0 09/17/20 23 9:47 AM EDT documented as of this encounter Care Teams Food Tray Assembler Relationship Specialty Start Date End Date Kathy Valverde DO [address] [place] [address] PCP - General Family Medicine 11/16/18 Puia, Haydee, PharmD [address] [place] [address] Pharmacist Internal Medicine 12/03/23 documented as of this encounter
--- OUTSIDE RECORDS SUMMARY | 2025-02-02 12:36 | XMS_ITS | Encounter Summary ---
Author Organization [employer] Address 75 [facility] 7t h Floor [place] [id number] Care Team Providers Care Otr Refrigerated Cdl Truck Driver Name Role Phone Kathy Valverde DO Primary Care Provider [phone] Haydee Deluca PharmD Unavailable [phone] Reason for Visit * Reason Onset Date Comments Med Refill 08/04/2024 Encounter Details Date Type Department Care Team ([facility] st Contact Info) Description 08/04/[address] [facility] MEDICINE [address] [place] [address] Kathy Valverde DO [address] [place] [address] Asthma, unspecified asthma severity, unspecified whether complicated, [...] documented as of this encounter Care Teams Otr Refrigerated Cdl Truck Driver Relationship Specialty Start Date End Date Kathy Valverde DO [address] [place] [address] PCP - General Family Medicine 11/16/18 Puia, Haydee, PharmD [address] [place] [address] Pharmacist Internal Medicine 12/03/23 documented as of this encounter
--- OUTSIDE RECORDS SUMMARY | 2025-02-02 12:36 | XMS_ITS | Encounter Summary ---
Author Organization [employer] Address 75 [facility] 7t [place] [address] Care Team Providers Care Escort Patients Name Role Phone Kathy Valverde DO Primary Care Provider [phone]- [phone] Haydee Deluca PharmD Unavailable [phone] Reason for Visit * Reason Onset Date Comments Medication Question 10/14/2023 Encounter Details Date Type Department Care Team ([facility] Contact Info) Description 10/14/2023 Telephone [facility] MEDICINE [address] [place] [address] Kathy Valverde DO [address] [place] [address] Medication Question Social History Tobacco Use Types Packs/Day Years [...] encounter Miscellaneous Notes * Telephone Encounter - Manolo Rea - 10/14/2023 2:07 PM EST Tc from pt stating that PA for the ozempic was denied by the insurance because they do not have a reason in why she needs medication. Pt states that Insurance informs provider needs to provide a callwith reason for the need of the Ozempic. Please contact pt at [phone] documented in this encounter Plan of Treatment Not on file documented as of this encounter Visit Diagnoses Not on filedocumented in this encounter Additional Health Concerns Assessment Noted Time PHQ-9 Depression Total Score: 0 09/17/20 23 9:47 AM EDT documented as of this encounter Care Teams Escort Patients Relationship Specialty Start Date End Date Kathy Valverde DO [address] [place] [address] PCP - General Family Medicine 11/16/18 Haydee Deluca PharmD [address] [place] [address] Pharmacist Internal Medicine 12/03/23 documented as of this encounter
--- OUTSIDE RECORDS SUMMARY | 2025-02-02 12:36 | XMS_ITS | Encounter Summary ---
Author Organization [employer] Address 75 [facility] 7t [place] [address] Care Team Providers Care Payroll Benefits Administrator Name Role Phone Kathy Valverde DO Primary Care Provider [phone] Haydee Deluca PharmD Unavailable Encounter Details Date Type Department Care Team ([facility] st Contact Info) Description 01/27/2025 Population Health Risk Score [facility] ([facility]) Department [address] [phone] Provider, Population Health Generic Social History Tobacco Use Types Packs/Day Years [...] Component 5.7( 5 10:31 AM EDT) No Haydee Deluca, PharmD Record your blood sugar as directed Result Component No Haydee Deluca, PharmD documented as of this encounter Visit Diagnoses Not on filedocumented in this encounter Additional Health Concerns Assessment Noted Time PHQ-9 Depression Total Score: 0 09/17/20 23 9:47 AM EDT documented as of this encounter Care Teams Payroll Benefits Administrator Relationship Specialty Start Date End Date Kathy Valverde DO [address] [place] [address] PCP - General Family Medicine 11/16/18 Haydee Deluca, PharmD [address] [place] [address] Pharmacist Internal Medicine 12/03/23 documented as of this encounter
--- OUTSIDE RECORDS SUMMARY | 2025-02-02 12:36 | XMS_ITS | Encounter Summary ---
Author Organization [employer] Address 75 [facility] 7t [place] [address] Care Team Providers Care Head Up Operator Helper Name Role Phone Kathy Valverde DO Primary Care Provider [phone] Haydee Deluca PharmD Unavailable [phone] Reason for Visit * Reason Onset Date Comments Nurse Triage 10/14/2023 Encounter Details Date Type Department Care Team ([facility] st Contact Info) Description 10/14/2023 Telephone [facility] MEDICINE [address] [place] [address] Kathy Valverde DO [address] [place] [address] Nurse Triage Social History Tobacco Use Types [...] encounter Miscellaneous Notes * Telephone Encounter - Elva Rosa RN - 10/14/2023 3:41 PM EST Triage call Pt reports was seen in [facility] 10/07/23 Pt was given order to increase lantus 2 U (28U) for2 days but, Pt has continued to keep 28u of lantus because reports blood sugar is high . Pt blood sugar this morning before breakfast was 216 Pt reports didn't eat breakfast or lunch. Pt just took blood sugar again at 215pm and it was 268. Pt reports drinking adequate water and frequent urination. Pt reports it meraz with urination but, it isn't a urine infection . Pt also reports itchiness in the vaginal area, neg for discharge. Pt insists that blood sugar is too high and Pt doesn't have an infection. Pt is advised to return to [facility] open till 8pm tonight and Pt reports no early childhood lead teacher. Pt reports will return to [facility] in am. Pt does have apt 10/19/23 with PCP. Protocol Used: Diabetes - High Blood Sugar (Adult) Protocol-Based Disposition: Home Care Positive Triage Question: * Blood glucose 70 - 240 mg/dL (3.9 -13.3 mmol/L) * All higher-acuity triage questions were negative Care Advice Discussed: * High Blood Sugar (Hyperglycemia) * Treatment - Liquids * Continue Insulin * Measure and Record Your Blood Glucose * Reasons To Call Back - Blood glucose over 300 mg/dL (16.7 mmol/L), two or more times in a row. - Urine ketones become moderate or large (or more than 1+); if you check blood ketones, blood ketone test is over 1.4 mmol/L - Vomiting lasting over 4 hours or unable to drink any fluids - Rapid breathing occurs - You have more questions - You become worse * Telephone Encounter - Manolo Rea - 10/14/2023 2:05 PM EST Symptom: High Blood Sugar - Caller Reports Outcome: Schedule an urgent appointment (within 1 hour) or talk to a nurse or provider soon Reason: Getting worse The caller accepted this outcome Please contact pt [phone] documented in this encounter Plan of Treatment Not on file documented as of this encounter Visit Diagnoses Not on filedocumented in this encounter Additional Health Concerns Assessment Noted Time PHQ-9 Depression Total Score: 0 09/17/20 23 9:47 AM EDT documented as of this encounter Care Teams Head Up Operator Helper Relationship Specialty Start Date End Date Kathy Valverde DO [address] [place] [address] PCP - General Family Medicine 11/16/18 Haydee Deluca PharmD [address] [place] [address] Pharmacist Internal Medicine 12/03/23 documented as of this encounter
--- OUTSIDE RECORDS SUMMARY | 2025-02-02 12:36 | XMS_ITS | Encounter Summary ---
Author Organization [employer] Address 75 [facility] 7t [place] [address] Care Team Providers Care Check Viewer Name Role Phone Kathy Valverde DO Primary Care Provider [phone] Haydee Deluca PharmD Unavailable [phone] Reason for Visit * Reason Comments Med Refill Encounter Details Date Type Department Care Team ([facility] st Contact Info) Description 11/17/2024 Refill [facility] MEDICINE [address] [place] [address] Kathy Valverde DO [address] [place] [address] Asthma, unspecified asthma severity, unspecified whether complicated, [...] documented as of this encounter Care Teams Check Viewer Relationship Specialty Start Date End Date Kathy Valverde DO [address] [place] [address] PCP - General Family Medicine 11/16/18 HannyiaHaydee, PharmD [address] [place] [address] Pharmacist Internal Medicine 12/03/23 documented as of this encounter
--- OUTSIDE RECORDS SUMMARY | 2025-02-02 12:36 | XMS_ITS | Encounter Summary ---
Author Organization [employer] Address 75 [facility] 7t [place] [address] Care Team Providers Care Surgical Clinical Reviewer Name Role Phone Abram Kathy Primary Care Provider [phone] Haydee Deluca PharmD Unavailable [phone] Reason for Visit * Reason Onset Date Comments Medication Question 01/31/2025 Encounter Details Date Type Department Care Team ([facility] Contact Info) Description 01/31/2025 Telephone [facility] MEDICINE [address] [place] [address] Blanca Rosario RN [address] [place] [address] Medication Question Social History Tobacco Use Types [...] encounter Miscellaneous Notes * Telephone Encounter - Blanca Rosario RN - 01/31/2025 10:26 AM EDT TC placed to pt. Informed pt. Since Mounjaro dose was increased to 7.5mg/ week at yesterday's PCP appt., pharmacist and PCP recommend decreasing Triseba dose from 50units/ day to 40units/ day to avoid hypoglycemia when new dose of Mounjaro is started. Pt. Verbalizes understanding, reports she just recently started last box of 5mg Mounjaro so will finish this box and start new dosing in February. documented in this encounter Plan of Treatment [...] Noted Time PHQ-9 Depression Total Score: 13 025 11:12 AM EDT documented as of this encounter Care Teams Surgical Clinical Reviewer Relationship Specialty Start Date End Date Kathy Valverde DO [address] [place] [address] PCP - General Family Medicine 11/16/18 Haydee Deluca PharmD [address] [place] [address] Pharmacist Internal Medicine 12/03/23 documented as of this encounter
--- OUTSIDE RECORDS SUMMARY | 2025-02-02 12:36 | XMS_ITS | Encounter Summary ---
Author Organization [employer] Address [address] [place] [address] 7 [place] [address] Care Team Providers Care Newspaper Writer Name Role Phone Kathy Valverde DO Primary Care Provider [phone]- [phone] Haydee Deluca PharmD Unavailable [phone] Reason for Visit * Reason Comments Med Refill Encounter Details Date Type Department Care Team ([facility] st Contact Info) Description 12/09/2022 Refill [facility] MEDICINE [address] [place] [address] Kathy Valverde DO [address] [place] [address] Asthma, unspecified asthma severity, unspecified whether complicated, unspecified whether persistent (Primary Dx) Social History Tobacco Use Types Packs/Day Years [...] asthma severity, unspecified whether complicated, unspecified whether persistent- Primary documented in this encounter Care Teams Newspaper Writer Relationship Specialty Start Date End Date Kathy Valverde DO [address] [place] [address] PCP - General Family Medicine 11/16/18 Haydee Deluca, PharmD [address] [place] [address] Pharmacist Internal Medicine 12/03/23 documented as of this encounter
--- OUTSIDE RECORDS SUMMARY | 2025-02-02 12:36 | XMS_ITS | Encounter Summary ---
Author Organization [employer] Address 75 [facility] 7t [place] [address] Care Team Providers Care Heating Operators Engineer Name Role Phone Kathy Valverde DO Primary Care Provider [phone]- [phone] Haydee Deluca PharmD Unavailable [phone] Encounter Details Date Type Department Care Team ([facility] Contact Info) Description 11/12/2023 Abstract [facility] MEDICINE [address] [place] [address] Kathy Valverde DO [address] [place] [address] Social History Tobacco Use Types Packs/Day Years [...] documented as of this encounter Care Teams Heating Operators Engineer Relationship Specialty Start Date End Date Kathy Valverde DO [address] [place] [address] PCP - General Family Medicine 11/16/18 Haydee Deluca PharmD [address] [place] [address] Pharmacist Internal Medicine 12/03/23 documented as of this encounter
--- OUTSIDE RECORDS SUMMARY | 2025-02-02 12:36 | XMS_ITS | Encounter Summary ---
Author Organization [employer] Address [address] [place] [address] 7t h Floor [place] [id number] Care Team Providers Care Production Supervisor Name Role Phone Kathy Valverde DO Primary Care Provider Haydee Deluca PharmD Unavailable [phone] Reason for Visit * Reason Onset Date Comments PA 10/14/2023 Prior Authorization 10/14/2023 budesonide ( Pulmicort) 0.25 MG/2ML nebulizer solution Encounter Details Date Type Department Care Team ([facility] st Contact Info) Description 10/14/2023 Telephone [facility] MEDICINE [address] [place], [place] [phone] Kathy Valverde DO [address] [place], [place] [id number] PA; Prior Authorization (budesonide (Pulmicort) 0.25 MG/2ML nebulizer solution ) Social History Tobacco Use Types Packs/Day Years [...] the past 12 months, has t he [employer], gas, oil or water [employer] threatened to shut off services in your [...] encounter Miscellaneous Notes * Telephone Encounter - Katelyn Clark - 10/21/2023 4:11 PM EST MH PA form was generated and placed on provider desk for review and signature. * Telephone Encounter - Manolo Rea - 10/14/2023 2:11 PM EST Tc from pt stating that medication: budesonide (Pulmicort) 0.25 MG/2ML nebulizer solution needs a PA. Please contact pt if any questions at [phone] documented in this encounter Plan of Treatment Not on file documented as of this encounter Visit Diagnoses Not on filedocumented in this encounter Additional Health Concerns Assessment Noted Time PHQ-9 Depression Total Score: 0 09/17/20 23 9:47 AM EDT documented as of this encounter Care Teams Production Supervisor Relationship Specialty Start Date End Date Kathy Valverde DO [address] [place] [address] PCP - General Family Medicine 11/16/18 Haydee Deluca, EugeneD [address] [place] [address] Pharmacist Internal Medicine 12/03/23 documented as of this encounter
--- OUTSIDE RECORDS SUMMARY | 2025-02-02 12:36 | XMS_ITS | Encounter Summary ---
Author Organization [employer] Address 75 [facility] 7t [place] [address] Care Team Providers Care Marketing Production Specialist Name Role Phone AbramKathy Primary Care Provider [phone] Haydee Deluca PharmD Unavailable [phone] Reason for Visit * Reason Comments Med Refill Encounter Details Date Type Department Care Team ([facility] st Contact Info) Description 04/19/2024 Refill [facility] MEDICINE [address] [place] [address] Haydee Deluca, PharmD [address] [place] [address] Type 2 diabetes mellitus without complication, with long-term current use of insulin ([facility]) Social History Tobacco Use Types Packs/Day Years [...] Result Component 5.7( 10:31 AM EDT) No HannyiaHaydee, PharmD Record your blood sugar as directed Result Component No PuiaRamírezHaydee, PharmD documented as of this encounter Visit Diagnoses Diagnosis Type 2 diabetes mellitus without complication, with long-term current use of insulin ([facility]) documented in this encounter Additional Health Concerns Assessment Noted Time PHQ-9 Depression Total Score: 0 09/17/20 23 9:47 AM EDT documented as of this encounter Care Teams Marketing Production Specialist Relationship Specialty Start Date End Date Kathy Valverde DO [address] [place] [address] PCP - General Family Medicine 11/16/18 HannyiaHaydee, PharmD [address] [place] [address] Pharmacist Internal Medicine 12/03/23 documented as of this encounter
--- OUTSIDE RECORDS SUMMARY | 2025-02-02 12:36 | XMS_ITS | Encounter Summary ---
Author Organization [employer] Address 75 [facility] 7t [place] [address] Care Team Providers Care Pharmacy Director Name Role Phone Abram Kathy Primary Care Provider [phone] Haydee Deluca PharmD Unavailable [phone] Reason for Visit * Reason Comments Med Refill Encounter Details Date Type Department Care Team ([facility] Contact Info) Description 01/13/2025 Refill [facility] [address] [place] [address] Celso Wren MD [address] [place] [address] Asthma, unspecified asthma severity, unspecified whether complicated, [...] documented as of this encounter Care Teams Pharmacy Director Relationship Specialty Start Date End Date Kathy Valverde DO [address] [place] [address] PCP - General Family Medicine 11/16/18 HannyiaHaydee, PharmD [address] [place] [address] Pharmacist Internal Medicine 12/03/23 documented as of this encounter
--- OUTSIDE RECORDS SUMMARY | 2025-02-02 12:36 | XMS_ITS | Encounter Summary ---
Author Organization [employer] Address 75 [facility] 7t [place] [address] Care Team Providers Care Samples And Repairs Preparer Name Role Phone Kathy Valverde DO Primary Care Provider [phone] Haydee Deluca PharmD Unavailable [phone] Reason for Visit * Reason Onset Date Comments Prior Authorization 11/05/2023 Ozempic, 0.2 5 Encounter Details Date Type Department Care Team ([facility] st Contact Info) Description 11/05/2023 Telephone [facility] MEDICINE [address] [place] [address] Kathy Valverde DO [address] [place] [address] Prior Authorization (Ozempic, 0.25 ) Social History Tobacco Use Types Packs/Day [...] * Telephone Encounter - Katelyn Clark - 11/05/2023 11:59 AM EST PA is currently pending decision with insurance. * Telephone Encounter - Agnes Cardoza - 11/05/2023 11:27 AM EST Tc from pt states PA is needed for Semaglutide,0.25 or 0.5MG/DOS, (Ozempic, 0.25 or 0.5 MG/DOSE,) 2MG/3ML solution pen-injector documented in this encounter Plan of Treatment Not on file documented as of this encounter Visit Diagnoses Not on filedocumented in this encounter Additional Health Concerns Assessment Noted Time PHQ-9 Depression Total Score: 0 09/17/20 23 9:47 AM EDT documented as of this encounter Care Teams Samples And Repairs Preparer Relationship Specialty Start Date End Date Katyh Valverde DO [address] [place] [address] PCP - General Family Medicine 11/16/18 Haydee Deluca, PharmD [address] [place] [address] Pharmacist Internal Medicine 12/03/23 documented as of this encounter
--- OUTSIDE RECORDS SUMMARY | 2025-02-02 12:36 | XMS_ITS | Encounter Summary ---
Author Organization [employer] Address [address] [facility] [address] [place] [address] Care Team Providers Care Loss Prevention Guard Name Role Phone AbramKathy Primary Care Provider [phone] Haydee Deluca PharmD Unavailable [phone] Reason for Visit * Reason Comments Med Refill Encounter Details Date Type Department Care Team ([facility] st Contact Info) Description 02/26/2024 Refill [facility] MEDICINE [address] [place] [address] Haydee Deluca, PharmD [address] [place] [address] Type 2 diabetes mellitus without complication, with long-term current use of insulin ([facility]) Social History Tobacco Use Types Packs/Day Years [...] complication, with long-term current use of insulin ([facility]) documented in this encounter Additional Health Concerns Assessment Noted Time PHQ-9 Depression Total Score: 0 09/17/20 23 9:47 AM EDT documented as of this encounter Care Teams Loss Prevention Guard Relationship Specialty Start Date End Date Kathy Valverde DO [address] [place] [address] PCP - General Family Medicine 11/16/18 HannyiaHaydee, PharmD [address] [place] [address] Pharmacist Internal Medicine 12/03/23 documented as of this encounter
--- OUTSIDE RECORDS SUMMARY | 2025-02-02 12:36 | XMS_ITS | Encounter Summary ---
Author Organization [employer] Address [address] [facility] [address] [place] [address] Care Team Providers Care Flexible Babysitter Name Role Phone Kathy Valverde DO Primary Care Provider + [phone] Haydee Deluca PharmD Unavailable [phone] Encounter Details Date Type Department Care Team (Latest Contact Info) Description 01/30/2025 Travel Social History Tobacco Use Types Packs/Day Years [...] Component 5.7( 10:31 AM EDT) No Haydee Deluca, PharmD Record your blood sugar as directed Result Component No Haydee Deluca, PharmD documented as of this encounter Visit Diagnoses Not on filedocumented in this encounter Additional Health Concerns Assessment Noted Time PHQ-9 Depression Total Score: 13 025 11:12 AM EDT documented as of this encounter Care Teams Flexible Babysitter Relationship Specialty Start Date End Date Kathy Valverde DO [address] [place] [address] PCP - General Family Medicine 11/16/18 Haydee Deluca, PharmD [address] [place] [id number] Pharmacist Internal Medicine 12/03/23 documented as of this encounter
--- OUTSIDE RECORDS SUMMARY | 2025-02-02 12:36 | XMS_ITS | Encounter Summary ---
Author Organization [employer] Address [address] [facility] [address] [place] [address] Care Team Providers Care Director Of Critical Care Name Role Phone Kathy Valverde DO Primary Care Provider [phone] Haydee Deluca PharmD Unavailable [phone] Reason for Visit * Reason Onset Date Comments callback requested 10/10/2024 Encounter Details Date Type Department Care Team ([facility] Contact Info) Description 10/10/2024 Telephone [facility] MEDICINE [address] [place] [address] Kathy Valverde DO [address] [place] [address] callback requested Social History Tobacco Use Types Packs/Day Years [...] encounter Miscellaneous Notes * Telephone Encounter - Zoraida Jorgensen RN - 10/10/2024 11:52 AM EST TC placed to pt [phone] in regards to below message. Pt reports she cancelled her appointment with pharmacist (Haydee) d/t asthma flare. Pt reports she walks to [facility] and is concerned it would flare her asthma more. Pt reports using albuterol inhaler q 4 hours and her arnuity ellipta inhaler once daily as instructed. Pt reports the reason she is having a flare is because her apartment has a back door and there is a draft of cold air coming in thru the bottom which is causing patient to have a cough. Pt reports her landlord is aware and will be placing something on the door to STOP the draft from coming in. Pt reports her daughter also has asthma and is experiencing the same symptoms. RN advised pt if s/s worsen or pt develops difficulty breathing, becomes SOB or develops wheezing then pt should come to the walk in center to be evaluated as pt may need prednisone RX. Pt verbalized understanding. Pt to f/u PRN. Sending to Haydee as FYI to contact patient and r/s appointment. * Telephone Encounter - Lito Simpson - 10/10/2024 11:28 AM EST Tc from pt requesting a callback to speak to PCP , pt had to cancel appointment for having asthma . Callback number [phone] documented in this encounter Plan of Treatment [...] documented as of this encounter Care Teams Director Of Critical Care Relationship Specialty Start Date End Date Kathy Valverde DO [address] [place] [address] PCP - General Family Medicine 11/16/18 Haydee Deluca, PharmD [address] [place] [address] Pharmacist Internal Medicine 12/03/23 documented as of this encounter
--- OUTSIDE RECORDS SUMMARY | 2025-02-02 12:36 | XMS_ITS | Clinical Summary ---
Author Organization [employer] Address [address] [place] [address] Care Team Providers Care Developer Automatic Name Role Phone AbramKathy Primary Care Provider Haydee Deluca PharmD Unavailable [phone] Allergies Active Allergy Reactions Criticality Noted Date Comments Cyclobenzaprine Itching 02/09/2013 Tramadol 12/14/2020 Medications * This document contains information received from the source organization and may not represent a complete record from that organization. Continuous Blood Gluc Teacher Education Instructor (FreeStyle Shyann 2 [place]) device Scan sensor every 8 hours 1 each 09/17/20 23 Active Arnuity Ellipta 100 MCG/ACT inhaler INHALE 1 PUFF BY MOUTH EVERY DAY RINSE MOUTH AFTER USING. 30 each 04/27/20 24 Active baclofen (Lioresal) 10 MG tablet TAKE 1 TABLET BY MOUTH THREE TIMES DAILY NEEDED FOR MUSCLE SPASMS 60 tablet 06/14/20 24 Active acetaminophen (Tylenol 8 Hour) 650 MG ER tablet TAKE 1 TABLET BY MOUTH EVERY 8 HOURS NEEDED FOR MILD OR MODERATE PAIN. DO NOT BREAK, CRUSH, DISSOLVE OR CHEW 60 tablet 06/14/20 24 Active Alcohol Swabs (Alcohol Prep) 70 % padsIndications :Type 2 diabetes mellitus with diabetic microalbuminuri a, with long-term current use of insulin ([facility]) USE THREE TIMES DAILY 100 each 11 06/14/20 24 Active hydroCHLOROthia zide (HYDRODiuril) 25 MG tablet Take 1 tablet (25 mg) by mouth Once per day. 90 tablet 3 06/21/20 24 025 Active famotidine (Pepcid) 40 MG tablet Take 1 tablet (40 mg) by mouth at bedtime. 30 tablet 11 06/21/20 24 025 Active lidocaine (Lidoderm) 5 % patch APPLY 1 PATCH TOPICALLY TO SKIN, LEAVE ON FOR 12 HOURS AND OFF FOR 12 HOURS DIRECTED 30 patch 3 08/05/20 24 Active ondansetron (Zofran) 4 MG tablet TAKE 1 TABLET BY MOUTH EVERY 8 HOURS NEEDED FOR NAUSEA AND VOMITING 30 tablet 1 09/20/20 24 Active atorvastatin (Lipitor) 10 MG tablet TAKE 1 TABLET BY MOUTH EVERY EVENING 90 tablet 3 09/21/20 24 Active hydrocortisone 2.5 % creamIndication s:Seborrheic dermatitis APPLY TOPICALLY TO AFFECTED AREA(S) TWICE DAILY 30 g 3 09/27/20 24 Active triamcinolone (Kenalog) 0.1 % ointment APPLY TO THE AFFECTED AREA(S) TOPICALLY TWICE DAILY IN THE MORNING AND AT BEDTIME NEEDED RASH 30 g 1 09/27/20 24 Active naproxen (Naprosyn) 500 MG tablet TAKE 1 TABLET BY MOUTH TWICE DAILY IN THE MORNING AND AT BEDTIME NEEDED FOR MILD PAIN 40 tablet 1 09/30/20 24 Active metroNIDAZOLE (Metrocream) 0.75 % creamIndication s:Rosacea APPLY TOPICALLY TO AFFECTED AREA(S) TWICE DAILY DIRECTED 45 g 3 09/30/20 24 Active Diclofenac Sodium 1 % gel APPLY 2 GRAMS TOPICALLY FOUR TIMES DAILY NEEDED FOR PAIN 100 g 5 10/05/20 24 Active clotrimazole (Lotrimin) 1 % cream APPLY TOPICALLY TO THE AFFECTED AREA(S) TWICE DAILY IN THE MORNING AND AT BEDTIME NEEDED FOR RASH FOR UP TO 28 DAYS 60 g 2 10/07/20 24 Active Petrolatum 42 % ointment APPLY TOPICALLY NEEDED FOR DRY SKIN 454 g 3 10/10/20 24 Active TRUEplus Lancets 33G miscIndications :Type 2 diabetes mellitus without complication, with long-term current use of insulin ([facility]) TEST BLOOD SUGAR THREE TIMES DAILY 100 each 11 11/08/20 24 Active insulin degludec (Tresiba FlexTouch) 200 UNIT/ML injectionIndica tions:Type 2 diabetes mellitus without complication, with long-term current use of insulin ([facility]) Inject 50 Units under the skin at bedtime. 9 mL 8 11/08/20 24 Active Continuous Glucose Sensor (FreeStyle Shyann 2 Sensor) miscIndications :Type 2 diabetes mellitus without complication, with long-term current use of insulin ([facility]) APPLY SENSOR EVERY 14 DAYS DIRECTED 2 each 11/08/20 24 Active insulin pen needle 32G x 4 mm miscIndications :Type 2 diabetes mellitus without complication, with long-term current use of insulin ([facility]) Use to inject insulin 1 times daily 100 each 11/08/20 24 Active glucose blood (FreeStyle Precision Gelacio Test) test stripIndication s:Type 2 diabetes mellitus without complication, with long-term current use of insulin ([facility]) Use to test blood sugar up to 3 times daily, as directed 100 each 11/08/20 24 Active lisinopril 40 MG tabletIndicatio ns:Type 2 diabetes mellitus without complication, with long-term current use of insulin ([facility]),Essen tial hypertension Take 1 tablet (40 mg) by mouth Once per day. 90 tablet 3 11/08/20 24 025 Active docusate sodium (Colace) 100 MG capsule Take 100 mg by mouth if needed each day for constipation . OTC Active cholecalciferol VITAMIN D (Vitamin D-3) 50 MCG (2000 UT) tablet TAKE 1 TABLET BY MOUTH EVERY MORNING 90 tablet 3 11/21/19 25 Active cholecalciferol (Vitamin D-3) 50 MCG (2000 UT) tablet Take 1 tablet (50 mcg) by mouth in the morning. 90 tablet 3 11/21/19 25 Active ibuprofen 400 MG tablet Take 1 tablet (400 mg) by mouth every 6 (six) hours if needed for moderate pain or fever for up to 30 doses. 30 tablet 12/13/19 25 Active cetirizine (ZyrTEC) 10 MG tabletIndicatio ns:Seasonal allergic rhinitis, unspecified trigger TAKE 1 TABLET BY MOUTH EVERY DAY 90 tablet 1 01/13/20 25 Active albuterol (Ventolin HFA) 108 (90 Base) MCG/ACT inhalerIndicati ons:Asthma, unspecified asthma severity, unspecified whether complicated, unspecified whether persistent INHALE 2 PUFFS BY MOUTH EVERY 4 HOURS NEEDED FOR WHEEZING OR SHORTNESS OF BREATH 18 g 1 01/13/20 25 Active esomeprazole (NexIUM) 40 MG packet Take 40 mg by mouth before breakfast and before evening meal. 180 each 3 01/31/20 25 026 Active sertraline (Zoloft) 25 MG tablet Take 1 tablet (25 mg) by mouth Once per day. 30 tablet 3 01/31/20 25 026 Active hydrOXYzine pamoate (Vistaril) 25 MG capsule Take 1 capsule (25 mg) by mouth every 6 (six) hours if needed for anxiety. 30 capsule 1 01/31/20 25 026 Active Tirzepatide (Mounjaro) 7.5 MG/0.5ML solution auto-injector Inject 7.5 mg under the skin 1 (one) time per week. 2 mL 3 01/31/20 25 Active pantoprazole (ProtoNix) 40 MG EC tablet Take 40 mg by mouth 2 times daily. 04/08/20 24 025 Discontinued(In effective) cetirizine (ZyrTEC) 10 MG tabletIndicatio ns:Seasonal allergic rhinitis, unspecified trigger TAKE 1 TABLET BY MOUTH EVERY DAY 90 tablet 1 07/05/20 24 025 Discontinued Tirzepatide (Mounjaro) 5 MG/0.5ML solution auto-injectorIn dications:Type 2 diabetes mellitus without complication, with long-term current use of insulin ([facility]) Inject 5 mg under the skin 1 (one) time per week. 2 mL 11 11/08/20 24 025 Discontinued albuterol (Ventolin HFA) 108 (90 Base) MCG/ACT inhalerIndicati ons:Asthma, unspecified asthma severity, unspecified whether complicated, unspecified whether persistent INHALE 2 PUFFS BY MOUTH EVERY 4 HOURS NEEDED FOR WHEEZING OR SHORTNESS OF BREATH 18 g 1 12/13/19 25 025 Discontinued(Re order (will not trigger notification to Pharmacy)) Active Problems Problem Noted Date Diagnosed Date Severe anxiety with panic 01/30/2025 Other hyperlipidemia 02/15/2024 Assessment & Plan (02/15/2024 2:58 PM EDT): LDL at goal SEP 2023 -cont lipitor nightly Mild persistent asthma without complication 11/2023 Assessment & Plan (02/15/2024 3:05 PM EDT): With frequent albuterol use -start asmanex BID -continue albuterol prn -advised contact [facility] if no improvement Healthcare maintenance 02/15/2024 Assessment & Plan (02/15/2024 3:08 PM EDT): -s/p flu vaccine AUG 2023 -s/p COVID vaccine OCT 2023 -s/p Tdap NOV 2009 -s/p Td NOV 2020 -s/p PCV-05 OCT 2023 -Hep A/B immune -pap nml/HPV neg APR 2022 -mammo BIRADS 15 JAN 2024 -STI/HIV screen negative SEP 2023 Myopia 09/17/2023 Essential hypertension 11/17/2022 Assessment & Plan (02/15/2024 2:58 PM EDT): SBP not at-goal with elevated home BP readings -increase lisinopril to 40mg daily -Cr/GFR nml SEP 2023 w/ moderate urine microalbumin APR 2022 -cont home BP monitoring -BP check with me in 1 mos -optho as above Type 2 diabetes mellitus 04/25/2022 Assessment & Plan (02/15/2024 2:56 PM EDT): A1c at-goal JAN 2024 -cont tresiba daily as per [facility] pharmacist -cont glipizide BID with meals -cont ozempic weekly -cont BS monitoring with CGM -f/u with [facility] pharmacist as scheduled -s/p optho exam AUG 2022 at [facility], appt this mos -foot exam next visit Chronic low back pain 05/23/2016 Assessment & Plan (02/15/2024 3:02 PM EDT): With severe worsening pain -L-spine XR with no acute abnormalities APR 2017, referred for repeat -referred for MRI L-spine -continue tylenol and naprosyn prn -encouraged baclofen prn -cont lidocaine patch and diclofenac gel prn -trial oxycodone nightly for severe pain, 1-week supply given -referred to PT -consider eval with ortho/PM given results -advised contact [facility] if sx change or worsen Chronic gastroesophageal reflux disease 05/23/20 16 Assessment & Plan (02/15/2024 3:07 PM EDT): No improvement with ozempic -continue prilosec BID -trial Zofran prn -will check with [facility] radiology re: GES -consider change GLP-1 -referred to GI for eval BMI 45.0-49.9, adult 05/23/2016 Sensorineural hearing loss 05/23/2016 Spina bifida 05/23/2016 Fatty liver 05/23/2016 Assessment & Plan (02/15/2024 2:59 PM EDT): -abd US with echogenic liver, no focal lesion SEP 2023 -AFP nml, LFTs improved SEP 2023 -Hep A/B immune Encounters * This document contains information received from the source organization and may not represent a complete record from that organization. Date Type Department Care Team Description 01/31/2025 Telephone [facility] [address] [place] [phone] Blanca Rosario, fighter pilot Question 01/30/2025 10:30 AM EDT Office Visit [facility] [address] [place] [phone] Kathy Valverde DO Type 2 diabetes mellitus with diabetic microalbuminuria, with long-term current use of insulin ([facility]) (Primary Dx); Essential hypertension; Other hyperlipidemia; Fatty liver; Anxiety and depression; Chronic low back pain with right-sided sciatica, unspecified back pain laterality; Chronic pain of both knees; Mild persistent asthma without complication; Chronic GERD; Healthcare maintenance; Screening for colon cancer 01/30/2025 Travel 01/27/2025 Population Health Risk Score [facility] Department [address] [phone] Provider, Population Health Generic 01/13/2025 Refill [facility] [address] [place] [address] Celso Wren MD Asthma, unspecified asthma severity, unspecified whether complicated, unspecified whether persistent 01/12/2025 Refill [facility] [address] [place] [address] Kathy Valverde DO Seasonal allergic rhinitis, unspecified trigger; Asthma, unspecified asthma severity, unspecified whether complicated, unspecified whether persistent 12/15/2024 Telephone [facility] [address] [place] [address] Betina Durán MA Recall Appt. 12/15/2024 Travel 12/13/2024 9:20 AM EST Office Visit [facility] [address] [place] [address] Celso Wren MD Influenza-like symptoms (Primary Dx); Asthma, unspecified asthma severity, unspecified whether complicated, unspecified whether persistent; Chronic nasal congestion; Essential hypertension; Viral URI 12/03/2024 Refill [facility] [address] [place] [address] Kathy Valverde DO Asthma, unspecified asthma severity, unspecified whether complicated, unspecified whether persistent 11/18/2024 Refill [facility] [address] [place] [address] Kathy Valverde DO 11/17/2024 Refill [facility] [address] [place] [address] Kathy Valverde DO Asthma, unspecified asthma severity, unspecified whether complicated, unspecified whether persistent 11/15/2024 Refill [facility] [address] [place] [phone] Kathy Valverde DO 11/08/2024 Travel from Last 3 Months Immunizations Name Administration Dates Next Due Hep A, Adult 11/19/2023,04/12/2010 Hep B, adult 11/19/2023,05/23/2010,04/12/2010 Influenza injectable quadriv alent IIV4 with preservative 08/10/2018,08/04/2017,09/23/2016 Influenza injectable quadriv alent preservative free 09/03/2023,12/10/2020,08/31/2019 Influenza, IIV3, injectable 08/29/2010, 9 Influenza, Split (incl. [place] antigen) 08/05/2013 Influenza, seasonal, injecta ble, preservative free 08/17/2024 Pfizer Covid-19 Vaccine 12+ 08/17/2024, Pneumococcal Conjugate PCV 20 09/17/2023 TD (adult), 2 Lf tetanus tox oid, preservative free, adsorbed 12/10/2020 Tdap 12/11/2009 Family History Medical History Relation Name Comments Coronary artery disease Father Diabetes Father Hypertension Father Schizophrenia Father Stroke Father Diabetes Mother Hypertension Mother Bipolar disorder Sister Diabetes Sister Schizophrenia Sister Relation Name Status Comments Father Mother Sister Social History Tobacco Use Types Packs/Day Years Used Date Smoking Tobacco: Never Passive Smoke Exposure: Never Smokeless Tobacco: Never Tobacco Cessation:Counseling Given: Not Answered Alcohol Use Standard Drinks/Week Comments Not Currently 0 (1 standard drink = 0.6 oz pur e alcohol) Depression Answer Date Recorded Patient Health Questionnaire-9 Score 13 01/30/2025 Patient Health Questionnaire-9 Score 13 01/30/2025 Last PHQ-9: Questionnaire Data Not on file 0 01/30/2025 Housing Stability Answer Date Recorded What is your housing situation today? I have [place] victoria 09/17/[address] you [...] Orientation Straight 09/15/2022 10 :19 AM EDT Last Filed Vital Signs Vital Sign Reading [...] Mass Index 42.73 01/30/2025 10:28 AM EDT Plan of Treatment Health Maintenance Due Date Last Done Comments CT Colonography 1979 Colonoscopy 1979 Colorectal Cancer Screening 1979 FIT DNA/Cologuard 1979 FIT 1979 FOBT 1979 Sigmoidoscopy 1979 Diabetes: Foot Exam 1989 Alcohol/Substance Use Screening 1991 Family Planning (PISQ) 1994 SDOH Screening 02/03/2025 02/04/2024 Pap Smear 05/02/2025 05/02/2022 Lipid Panel 07/13/2025 07/13/2024, 11/0 01/2023, 12/10/2020 Depression Monitoring (PHQ-9) 08/02/2025 01/30/2025, 01/30/2025 Diabetes: Hemoglobin A1C 08/02/2025 025, 11/08/2024, 07/13/2024, Additional history exists Tobacco Screening 12/13/2025 12/13/2024 Mammogram 01/14/2026 01/15/2024 Depression Screening 01/30/2026 01/30/2025, 01/31/20 25 Eye Exam 03/10/2026 03/10/2024, 04/2 03/2024, 03/10/2024, Additional history exists Cervical Cancer Screening 05/02/2027 HPV/Cotest 05/02/2027 05/02/2022, 05/13/2019 Zoster Vaccines (1 of 2) 2029 DTaP/Tdap/Td Vaccines (3 - Td or Tdap) 12/10/2030 12/10/2020, 12/11/2009 RSV Patients and Patients Aged 60 years or older (1 - 1-dose 75+ series) 2054 Pneumococcal Vaccine: Pediatrics (0 to 5 Years) and At-Risk Patients (6 to 49) Years) Completed 09/17/2023 Hepatitis A Vaccines Completed 11/19/2023, 04/12/20 10 Hepatitis B Vaccines Completed 11/19/2023, 05/23/2010, 04/12/2010 HIV Screening Completed 07/13/2024, 01/2023, 12/10/2020 Hepatitis C Screening Completed 07/13/2024 , 09/18/2023, 12/10/2020 COVID-19 Vaccine Completed 08/17/2024, 02/2023, 04/14/2021, Additional history exists Influenza Vaccine Completed 08/17/2024, , 12/10/2020, Additional history exists HIB Vaccines Aged Out No longer eligi ble based on patient's age to complete this topic HPV Vaccines Aged Out No longer eligi ble based on patient's age to complete this topic IPV Vaccines Aged Out No longer eligi ble based on patient's age to complete this topic Meningococcal Vaccine Aged Out No maryan bernard eligible based on patient's age to complete this topic RSV under 20 months Aged Out No longe r eligible based on patient's age to complete this topic Rotavirus Vaccines Aged Out No longer eligible based on patient's age to complete this topic Goals Goal Patient Goal Type Associated Problems Recent Progress Patient-Stated? Author Hemoglobin A1c < 7 Result Component 5.7( 10:31 AM EDT) No Haydee Deluca, Christen Record your blood sugar as directed Result Component No Haydee Deluca, Christen Procedures Procedure Name Priority Date/Time Associated Diagnosis Comments POCT GLYCATED HEMOGLOBIN, TOTAL Routine 01/30/2025 10:31 AM EDT Type 2 diabetes mellitus with diabetic microalbuminuria, with long-term current use of insulin ([facility]) POCT GLUCOSE Routine 01/30/2025 10:30 AM EDT Type 2 diabetes mellitus with diabetic microalbuminuria, with long-term current use of insulin (CMS/HCC) POCT RAPID STREP A Routine 12/13/2024 9: 28 AM EST Viral URI POCT INFLUENZA B (ID NOW RAPID MOLECULAR) Routine 12/13/2024 9:28 AM EST Viral URI POCT INFLUENZA A (ID NOW RAPID MOLECULAR) Routine 12/13/2024 9:28 AM EST Viral URI POCT RAPID COVID ANTIGEN Routine 12/13/2024 9:28 AM EST Viral URI POCT GLYCATED HEMOGLOBIN, TOTAL Routine 11/08/2024 10:30 AM EST Type 2 diabetes mellitus without complication, with long-term current use of insulin (CMS/HCC) HEPATITIS C AB W/REFL TO HCV RNA, QN, PCR Routine 07/13/2024 10:52 AM EDT Type 2 diabetes mellitus with diabetic microalbuminuria, with long-term current use of insulin (CMS/HCC) Essential hypertension Other hyperlipidemia Fatty liver Chronic low back pain with right-sided sciatica, unspecified back pain laterality Mild persistent asthma without complication Nausea Chronic pain of both knees Rash Healthcare maintenance HIV 1/2 ANTIGEN/ANTIBODY, FOURTH GENERATION W/RFL Routine 07/13/2024 10:52 AM EDT Type 2 diabetes mellitus with diabetic microalbuminuria, with long-term current use of insulin (CMS/HCC) Essential hypertension Other hyperlipidemia Fatty liver Chronic low back pain with right-sided sciatica, unspecified back pain laterality Mild persistent asthma without complication Nausea Chronic pain of both knees Rash Healthcare maintenance LIPID PANEL, STANDARD Routine 07/13/2024 10:52 AM EDT Type 2 diabetes mellitus with diabetic microalbuminuria, with long-term current use of insulin (CMS/HCC) Essential hypertension Other hyperlipidemia Fatty liver Chronic low back pain with right-sided sciatica, unspecified back pain laterality Mild persistent asthma without complication Nausea Chronic pain of both knees Rash Healthcare maintenance BI MAMMOGRAM SCREENING TOMOSYNTHESIS BILATERAL Routine 01/15/2024 8:30 AM EST HPV MRNA E6/E7 REFLEX TO HPV 16, 18/45 Routine 05/02/2022 12:07 PM EDT THINPREP IMAGING SYSTEM PAP Routine 05/02/2022 12:07 PM EDT from Last 3 Months or Most Recently Relevant to Health Maintenance Results * POCT HGB A1C (01/30/2025 10:31 AM EDT) Only the most recent of2 resultswithin the time period is included. Pathologist [facility] [place] Hemoglobin A1C 5.7 4.0 - 6.0 % QC Media Lot # [id number] Lot# Expiration Date Blood 01/30/2025 10:3 1 AM EDT Kathy Valverde DO POINT OF CARE TEST ENTER/CAESAR T ORDERABLES Final Result * POCT Glucose (01/30/2025 10:30 AM EDT) Pathologist [facility] [place] Glucose Blood, POC 91 60 - 200 mg/dL QC Media Lot # [id number] Lot# Expiration Date [id number] Blood Capillary blood specimen / Unknown 01/30/2025 10:30 AM EDT Kathy Valverde DO POINT OF CARE TEST ENTER/CAESAR T ORDERABLES Final Result * Influenza B (ID NOW Rapid Molecular) (12/13/2024 9:28 AM EST) Pathologist [facility] [place] Influenza B Negative Negative, Indeterminate [facility] Swab 12/13/2024 9:28 AM EST Celso Wren MD POINT OF CARE TEST ENTER/EDIT OR DERABLES Final Result [facility] [address] [place] [address] [phone] * Influenza A (ID NOW Rapid Molecular) (12/13/2024 9:28 AM EST) [facility] Influenza A Negative Negative, Indeterminate [facility] Swab 12/13/2024 9:28 AM EST us Celso Wren MD POINT OF CARE TEST ENTER/EDIT OR DERABLES Final Result Performing Organization Address [facility] Co de Phone Number [facility] [address] [place] [phone] * POCT Rapid COVID Ag (12/13/2024 9:28 AM EST) [facility] Rapid COVID Ag Negative [facility] Swab 12/13/2024 9:28 AM EST us Celso Wren MD POINT OF CARE TEST ENTER/EDIT OR DERABLES Final Result Performing Organization Address [facility] de Phone Number [facility] [address] [place] [phone] * POCT rapid strep A manually resulted (12/13/2024 9:28 AM EST) [facility] Rapid Strep A Screen Negative Negative, None Detected Swab 12/13/2024 9:28 AM EST us Celso Wren MD POINT OF CARE TEST ENTER/EDIT OR DERABLES Final Result * Hepatitis C Antibody with Reflex to HCV, RNA, Quantitative, Real-Time PCR (07/13/2024 10:52 AM EDT) [facility] Hepatitis C Antibody Nonreactive Nonreactive [facility] Comment:Antibodies to HCV no t detected; does not exclude early acuteHCV infection. Blood Venous blood specimen / Unknown 07/13/2024 10:52 AM EDT 07/13/2024 1:25 PM EDT Kathy Zariviral SLAUGHTER LAB BLOOD ORDERABLES Final R esult Performing Organization Address City/[facility]/ZIP Co de Phone Number [facility] [address] [place] [phone] [phone] * HIV-1/2 Antigen and Antibodies, Fourth Generation, with Reflexes (07/13/2024 10:52 AM EDT) HIV AB/AG Nonreactive Nonreactive [facility] Comment:HIV-1 p24 Ag and/or HIV-1/HIV-2 Ab not detected.A test result that is nonreactive does not exclude thepossibility of exposure to or infection with HIV-1 and/orHIV-2. Nonreactive results in this assay for individualswith prior exposure to HIV-1 and/or HIV-2 may be due toantigen and antibody levels that are below the limit ofdetection of this assay.[employer] HIV Ag/Ab Combo assay result andsupplemental assay results should be interpreted inconjunction with the patient's clinical presentation,history and other laboratory results. If the results areinconsistent with clinical evidence, additional testing issuggested to confirm the result. Blood Venous blood specimen / Unknown 07/13/2024 10:52 AM EDT 07/13/2024 1:25 PM EDT us Kathy Abram LAB BLOOD ORDERABLES Final R charleyult Performing Organization Address City/[facility]/ZIP Co de Phone Number [facility] [address] [place] [phone] * Lipid Panel, Standard (07/13/2024 10:52 AM EDT) Triglycerides 47 <150 mg/dL [facility] Comment:Desirable Triglyceri de: less than 150 mg/dLBorderline High Triglyceride 150-199 mg/dLHigh Triglyceride: 200-499 mg/dLVery High Triglyceride: greater than or equal to 5OO mg/dL Cholesterol 124 <200 mg/dL [facility] Comment:Desirable Cholestero l: less than 200 mg/dLBorderline High Cholesterol: 200-239 mg/dLHigh Cholesterol: greater than 239 mg/dL LDL Cholesterol Calculated 67 <100 mg/dL [facility] Comment:Desirable LDL: less than 100 mg/dLNear Optimal/Above Optimal LDL: 110- 129 mg/dLBorderline High LDL: 130-159 mg/dLHigh LDL: 160-189 mg/dLVery High LDL: greater than or equal to 190 mg/dL HDL Cholesterol 48 >40 mg/dL [facility] Comment:Desirable HDL: great er than 40 mg/dL Note: This HDL assay may give artificially low results in patients with liver disease. Blood Venous blood specimen / Unknown 07/13/2024 10:52 AM EDT 07/13/2024 1:25 PM EDT Kathy Valverde DO LAB BLOOD ORDERABLES Final R esult [facility] [address] [place] [address] [phone] * BI Mammogram Screening Tomosynthesis Bilateral (01/15/2024 8:30 AM EST) Anatomical Region Laterality Modality Breast Bilateral Mammography 01/15/2024 8:30 AM EST Narrative 01/31/2024 6:47 PM EDT ? [facility] ? [address] ?[place] [address] ? Mammography Report ? Signed ? Patient: Santos,Shannon R ?MR#: [id number] ?? [id number] ? : 1980 ?Acct:[id number] ? Age/Sex: 43 / F ?ADM Date: 03/01/24 ? Loc: HO.MAMMO ? Attending Xander Valverde DO ? Ordering Physician: Kathy Valverde DO ?Results: 1N ?? egative ? Date of Service: 01/15/24 ?Follow Up: 1 Year From Orig ?? inal Mammogram ? Procedure(s): MM tomosynthesis screening BI ?? Accession Number(s): [id number] ? cc: Kathy Valverde DO ? EXAMINATION: ?? MM SCREENING DIGITAL BREAST TOMOSYNTHESIS, BILATERAL ? CLINICAL INFORMATION: ? Screening. Asymptomatic. ? COMPARISON: ?? Mammography: This study is compared with prior exams dating back to ?? 2018. ? TECHNIQUE: ?? Digital breast tomosynthesis is performed in both the craniocaudal and ?? mediolateral oblique views along with computer-aided detection (CAD). ?? Synthesized 2D images are generated from the tomosynthesis. ? FINDINGS: ?? There are scattered areas of fibroglandular density (ACR BI-RADS breast ?? composition Category b). ? There are no significant masses, abnormal calcifications, or other ?? abnormalities. ? MM/MM tomosynthesis screening BI ?? IMPRESSION: ?? No mammographic evidence of malignancy. ? ASSESSMENT: ? BI-RADS BI-RADS 1 - Negative ? RECOMMENDATION: ?? Routine annual mammography screening. ? 1 year F/U ? This examination should not preclude the clinical evaluation of a ?? suspicious palpable abnormality. ? This patient's information was entered into a reminder system with a ?? target due date for their next mammogram. ? Dictated By: ?Emi Colin MD ? Signed By: ?<Electronically signed by Emi Colin MD in OV> ? 01/31/24 1844 ? DD/ 9 ? TD/TT: ? Lighting Specialist: ? Procedure Note Donotjose antoniointerpreter, Image - 01/31/2024 [facility] [address] [place], [place] [address] Mammography Report Signed Patient: Shannon Santos RMR#: [id number] : 1980Acct:[id number] Age/Sex: 43 / FADM Date: 01/15/24 Loc: HO.MAMMO Attending Dr: Kathy Valverde DO Ordering Physician: Kathy Valverdeults: 1N egative Date of Service: 01/15/24Follow Up: 1 Year From Orig inal Mammogram Procedure(s): MM tomosynthesis screening BI Accession Number(s): [id number] cc: Kathy Valverde DO EXAMINATION: MM SCREENING DIGITAL BREAST TOMOSYNTHESIS, BILATERAL CLINICAL INFORMATION: Screening. Asymptomatic. COMPARISON: Mammography: This study is compared with prior exams dating back to 2019. TECHNIQUE: Digital breast tomosynthesis is performed in both the craniocaudal and mediolateral oblique views along with computer-aided detection (CAD). Synthesized 2D images are generated from the tomosynthesis. FINDINGS: There are scattered areas of fibroglandular density (ACR BI-RADS breast composition Category b). There are no significant masses, abnormal calcifications, or other abnormalities. MM/MM tomosynthesis screening BI IMPRESSION: No mammographic evidence of malignancy. ASSESSMENT: BI-RADS BI-RADS 1 - Negative RECOMMENDATION: Routine annual mammography screening. 1 year F/U This examination should not preclude the clinical evaluation of a suspicious palpable abnormality. This patient's information was entered into a reminder system with a target due date for their next mammogram. Dictated By: Emi Colin MD Signed By: <Electronically signed by Emi Colin MD in OV> 01/31/24 1844 DD/ 0830 TD/TT: Lighting Specialist: Kathy Valverde DO IMG BI PROCEDURES Edited Res ult - Final * THINPREP TIS PAP (05/02/2022 12:07 PM EDT) Clinical Information: None given [facility] COMMENT SEE COMMENT [facility] Comment: EXPLANATORY NOTE: ? The Pap is a screening test for cervical cancer. It is ?? not a diagnostic test and is subject to false negative ?? and false positive results. It is most reliable when a ?? satisfactory sample, regularly obtained, is submitted ?? with relevant clinical findings and history, and when ?? the Pap result is evaluated along with historic and ?? current clinical information. ?? COMMENT: This Pap test has been evaluated with computer assisted technology. [facility] Operations Systems Specialist : SEE COMMENT [facility] Comment: SXA, CT(ASCP) CT screening location: [address] ??[id number] Interpretation/R esult: Negative for intraepithelial lesion or malignancy. [facility] LMP: NONE GIVEN [facility] Prev. BX: NONE [facility]IVEN [facility] Prev. PAP: NONE GIVEN [facility] SOURCE: None given [facility] Statement Of Adequacy: SEE COMMENT [facility] Comment: Satisfactory for evaluation. Endocervical/transformation zone component present. Age and/or menstrual status not provided 05/02/2022 12:0 7 PM EDT Kathy Valverde DO LAB PATHOLOGY ORDERABLES Fin al Result [facility] [address] * HPV mRNA E6/E7 REFLEX TO HPV 16, 18/45 (05/02/2022 12:07 PM EDT) HPV nRNA E6/E7 Not Detected Not Detected [facility] Comment: Methodology: Property Economist-Mediated Amplification This assay detects E6/E7 viral messenger RNA (mRNA) from 14 high-risk HPV types (16,18,31,33,35,39,45,51,52,56,58,59,66,68). ? Cervical sources are required for HPV testing. If a vaginal source from a patient who has had a total hysterectomy with removal of cervix was ?? submitted, please contact the testing laboratory for alternative testing options. ?? For additional information, please refer to [email or web address]/faq/RTE595a7 (This link if provided for information/ educational purposes only.) 05/02/2022 12:0 7 PM EDT us Kathy Valverde DO LAB CYTOLOGY ORDERABLES Анна robles Result [facility] [address] from Last 3 Months or Most Recently Relevant to Health Maintenance Insurance C3 DENTAL-[facility] MEDICAID STAND ADULT Care Teams Developer Automatic Relationship Specialty Start Date End Date Kathy Valverde DO [address] [place] [address] PCP - General Family Medicine 11/16/18 Haydee Deluca PharmD [address] [place] [address] Pharmacist Internal Medicine 12/03/23
== END 2025-02-02 11:42 | disposition home or self-care (01) ==
LOC: HO.HNS 10:46
PROVIDERS: PCP Family Medicine; Referring Provider Family Medicine; Visit Provider Physician Assistant
DX: Q05.9 Spina bifida, unspecified (principal)
CPT/HCPCS: 99204

== ENCOUNTER → 2025-02-02 10:46 | Outpatient (BNVA) | payer MEDICAID, SELFPAY | PROVIDERS: PCP Family Medicine; Referring Provider Family Medicine; Visit Provider Physician Assistant | DX: Q05.9 Spina bifida, unspecified (principal) | CPT/HCPCS: 99212 ==

== ENCOUNTER 2025-03-03 08:40 | Outpatient (AMB) | payer MEDICAID, SELFPAY ==
--- NOTE | 2025-03-03 08:50 | MHC.OFFVIS ---
Vital Signs 03/03/25 09:47 Height 5 ft 1 in Weight 220 lb BMI 41.6 BP 171/75 H Blood Pressure Location Rt radial Position Sitting Respiration 16 Pulse 60 Pulse Source Pulse Oximeter Pulse Oximetry (%) 98 Oxygen Delivery Method Room Air Intake Visit Reasons: Spina bifida, unspecified Health Insurance Specialist Required: No Allergies Flexeril Allergy (Unknown, Verified 03/03/25 09:48) palpitations, itching, swelling, tachycardia tramadol [TRAMADOL] Allergy (Unknown, Verified 03/03/25 09:48) ITCHING gabapentin Allergy (Verified 03/03/25 09:48) Rash Medication List - Last Reconciled 03/03/25 by Sheila Alcazar LPN acetaminophen ER (Arthritis Pain Relief (acetaminophen) ER) 650 mg PO Q12H albuterol sulfate 90 mcg/actuation (ProAir HFA) 2 puffs PO Q4-6H PRN atorvastatin 10 mg PO QPM bisacodyl (Dulcolax (bisacodyl)) 10 mg (2 x 5 mg) PO BEDTIME 2 days blood sugar diagnostic (FreeStyle Lite Strips) As directed cetirizine 10 mg PO DAILY cholecalciferol (vitamin D3) 50 mcg PO DAILY insulin degludec (Tresiba FlexTouch U-100 insulin) 53 units subcut BID lancets (TRUEplus Lancets) As directed lisinopril 10 mg PO DAILY pantoprazole 40 mg PO BID pen needle, diabetic (Pentips Pen Needle) As directed tirzepatide (Mounjaro) 7.5 mg subcut QWEEK triamcinolone acetonide 2 sprays intranasal DAILY HPI HPI Spina bifida, unspecified: Details: History of Present Illness The patient is a 44-year-old female presenting with chronic low back pain, stemming from a childhood history of spina bifida that required surgical correction. The pain has been persistent since this early intervention when she was 6 or 7 years old. It is primarily axial, located in the lumbar region, and periodically radiates to the lower extremities causing numbness. The patient reports past attempts at various pain treatment modalities, including several types of medications such as narcotics, muscle relaxants, NSAIDs, and Lidocaine patches, as well as physical therapy and nerve block injections, all with limited success. The patient has not tolerated MRI imaging due to claustrophobia, impeding objective evaluation through this modality. Her pain exacerbates activities like stair climbing and basic ambulation, leading to frequent stumbling and tripping due to leg failure. Her condition limits her ability to partake in social and family activities and affects her sleep, as she struggles to find a comfortable position free of pain. The patient's aversion to further surgical interventions is profound, rooted in prior medical advisement hinting at potential negative outcomes. Pain Description - Onset: Experienced since drawing kiln operator post-surgical intervention for spina bifida - Quality: Axial, consistent, excruciating - Primary Location: Lumbar region - Areas of Radiation: Bilaterally to the legs resulting in numbness - Aggravating Factors: Stair activities, standing, sitting, general ambulation - Relieving Factors: Attempted medications and physical therapy with minimal effect - Impact on Activities: Difficulty with ambulation, sleep, engaging in children's activities; frequent falls Physical Exam - BACK- Presence of significant hair tuft extending from mid back to lumbar region; visible surgical scar from prior corrective surgery. Pain Management - Affect: Pain significantly affects quality of life, prohibiting sleep and social activities - Analgesia: Histories of narcotic medications, NSAIDs, Lidocaine patches; none sufficiently effective - Adverse Effects: Experiences claustrophobia preventing MRI completion - Activities of Daily Living: Limited in movement due to pain, affecting family involvement and sleep - Aberrant Drug Related Behaviors: None reported [facility] Medical History (Updated 02/02/25 @ 13:41 by VITOR Hummel) Sensorineural hearing loss GERD (gastroesophageal reflux disease) Fatty liver Chronic back pain Morbid obesity Spina bifida No known health problems Surgical History (Updated 03/14/25 @ 16:30 by Xavier Parisi MD) History of cholecystectomy History of back surgery Family History (Updated 04/07/24 @ 09:21 by CHRISTIANEN Kuo) Mother HTN (hypertension) Father Aneurysm Diabetes Stroke Sister HTN (hypertension) Social History Alcohol intake: never Patient Tobacco Use Status: Never used Tobacco Physical Exam Vital Signs: Last Vital Signs Pulse 60 03/03/25 09:47 Resp 16 03/03/25 09:47 BP 171/75 H 03/03/25 09:47 Pulse Ox 98 03/03/25 09:47 Oxygen Delivery Method Room Air 03/03/25 09:47 BMI result Body Mass Index 41.6 Assessment & Plan Assessment & Plan (1) Spina bifida: Code(s): Q05.9 - Spina bifida, unspecified Category: Medical (2) History of back surgery: Code(s): Z98.890 - Other specified postprocedural states Category: Surgical Plan Plan - Consider advanced non-invasive surgical interventions, pending peer review - Engage in a multidisciplinary team discussion to evaluate the patient's complex pain management needs - Focus on potential utility of spinal cord stimulation or other pain management devices after peer review - Further evaluation and follow-up post peer-review conference needed to provide comprehensive guidance Patient was informed and verbally consented to the use of an ambient scribe for clinic note documentation during this visit. Discussion Notes I explained the need for a comprehensive evaluation of the patient's pain condition and potential management strategies, emphasizing the complexity due to her previous surgeries and persistent low back pain. We discussed the limitations posed by her claustrophobia in obtaining MRI imaging and explored alternative diagnostic strategies. I outlined considerations for various advanced pain management interventions, stressing that while immediate decisions were not made today, a peer review and further specialist consultations would help clarify viable options. Patient Instructions - Await contact from the practice within 2-3 weeks regarding pain management options - Patient encouraged to follow up if no contact is made within the designated timeframe - Remain informed about potential interventions discussed and prepared for further consultations - To monitor condition impact on daily activities and mental health, and report significant changes - Voice any concerns about interventions considered at subsequent follow-up appointments Coding Level of Care Code New Pt Level 4 (16768) Diagnoses Spina bifida Q05.9 History of back surgery Z98.890
--- OUTSIDE RECORDS SUMMARY | 2025-03-03 09:03 | XMS_ITS | Encounter Summary ---
Author Organization [employer] Address [address] [place] [address] 7t [place] [address] Care Team Providers Care Hydro Plant Technician Name Role Phone Kathy Valverde DO Primary Care Provider Haydee Deluca PharmD Unavailable Encounter Details Date Type Department Care Team ([facility] Contact Info) Description 10/30/2022 Telephone [facility] [address] [place], [place] [phone] Kathy Valverde DO [address] [place] [address] Social History Tobacco Use Types Packs/Day Years [...] on filedocumented in this encounter Care Teams Hydro Plant Technician Relationship Specialty Start Date End Date Kathy Valverde DO [address] [place], [place] [phone] PCP - General Family Medicine 11/16/18 Haydee Deluca, EugeneD [address] [place] [address] Pharmacist Internal Medicine 12/03/23 documented as of this encounter
--- OUTSIDE RECORDS SUMMARY | 2025-03-03 09:03 | XMS_ITS | Encounter Summary ---
Author Organization [employer] Address [address] [facility] 7t [place] [address] Care Team Providers Care Bottle Capping Machine Operator Name Role Phone Kathy Valverde DO Primary Care Provider [phone] Haydee Deluca PharmD Unavailable [phone] Reason for Visit * Reason Onset Date Comments PA 02/20/2025 Encounter Details Date Type Department Care Team ([facility] Contact Info) Description 02/20/2025 Telephone [facility] [address] [place], [place] [phone] Kathy Valverde DO [address] [place], [place] [phone] VITOR Social History Tobacco Use Types Packs/Day Years [...] encounter Miscellaneous Notes * Telephone Encounter - Enid Feliciano - 02/20/2025 2:30 PM EDT Tc from pt calling to inform PA is needed for medication esomeprazole (NexIUM) 40 MG packet. documented in this encounter Plan of Treatment Not on file documented as of this encounter Goals Goal Patient Goal Type Associated Problems Recent Progress Patient-Stated? Author Hemoglobin A1c < 7 Result Component 5.7( 10:31 AM EDT) No PuiaRamírezHaydee, PharmD Record your blood sugar as directed Result Component No Puia Haydee, PharmD documented as of this encounter Visit Diagnoses Not on filedocumented in this encounter Additional Health Concerns Assessment Noted Time PHQ-9 Depression Total Score: 13 025 11:12 AM EDT documented as of this encounter Care Teams Bottle Capping Machine Operator Relationship Specialty Start Date End Date Kathy Valverde DO [address] [place], [place] [phone] PCP - General Family Medicine 11/16/18 Hannyia, Haydee, PharmD [address] [place], [place] [phone] Pharmacist Internal Medicine 12/03/23 documented as of this encounter
--- OUTSIDE RECORDS SUMMARY | 2025-03-03 09:03 | XMS_ITS | Encounter Summary ---
Author Organization [employer] Address [address] [facility] 7t [place] [address] Care Team Providers Care Auth Specialist Name Role Phone Kathy Valverde DO Primary Care Provider [phone] Haydee Deluca PharmD Unavailable [phone] Reason for Visit * Reason Comments Med Refill Encounter Details Date Type Department Care Team ([facility] st Contact Info) Description 11/17/2024 Refill [facility] [address] [place] [address] Kathy Valverde DO [address] [place] [address] Asthma, unspecified asthma severity, unspecified whether complicated, [...] documented as of this encounter Care Teams Auth Specialist Relationship Specialty Start Date End Date Kathy Valverde DO [address] [place] [address] PCP - General Family Medicine 11/16/18 HannyiaHaydee, PharmD [address] [place] [address] Pharmacist Internal Medicine 12/03/23 documented as of this encounter
--- OUTSIDE RECORDS SUMMARY | 2025-03-03 09:03 | XMS_ITS | Encounter Summary ---
Author Organization [employer] Address [address] [place] [address] [address]t h Floor [place] [phone] Care Team Providers Care Deckhand Crab Boat Name Role Phone Kathy Valverde DO Primary Care Provider Haydee Deluca PharmD Unavailable [phone] Reason for Visit * Reason Onset Date Comments PA 10/14/2023 Prior Authorization 10/14/2023 budesonide ( Pulmicort) 0.25 MG/2ML nebulizer solution Encounter Details Date Type Department Care Team ([facility] st Contact Info) Description 10/14/2023 Telephone [facility] [address] [place], [place] [phone] Kathy Valverde DO [address] [place], [place] [phone] PA; Prior Authorization (budesonide (Pulmicort) 0.25 MG/2ML [...] the past 12 months, has t he [place], gas, oil or water [facility] threatened to shut off services in your [...] Please contact pt if any questions at [phone] documented in this encounter Plan of Treatment Not on file documented as of this encounter Visit Diagnoses Not on filedocumented in this encounter Additional Health Concerns Assessment Noted Time PHQ-9 Depression Total Score: 0 09/17/20 23 9:47 AM EDT documented as of this encounter Care Teams Deckhand Crab Boat Relationship Specialty Start Date End Date Kathy Valverde DO [address] [place] [address] PCP - General Family Medicine 11/16/18 Haydee Deluca, EugeneD [address] [place] [address] Pharmacist Internal Medicine 12/03/23 documented as of this encounter
--- OUTSIDE RECORDS SUMMARY | 2025-03-03 09:03 | XMS_ITS | Encounter Summary ---
Author Organization [employer] Address [address] [facility] 7t [place] [address] Care Team Providers Care Manager Marketing Name Role Phone Kathy Valverde DO Primary Care Provider [phone] Haydee Deluca PharmD Unavailable [phone] Reason for Visit * Reason Onset Date Comments Nurse Triage 10/14/2023 Encounter Details Date Type Department Care Team ([facility] st Contact Info) Description 10/14/2023 Telephone [facility] [address] [place] [address] Kathy Valverde DO [address] [place] [address] Nurse Triage Social History Tobacco Use Types [...] Triage call Pt reports was seen in [facility] 10/07/23 Pt was given order to [...] infection. Pt is advised to return to [facility] open till 8pm tonight and Pt reports no childcare aide. Pt reports will return to [facility] in am. Pt does have apt [...] caller accepted this outcome Please contact pt [phone] documented in this encounter Plan of Treatment Not on file documented as of this encounter Visit Diagnoses Not on filedocumented in this encounter Additional Health Concerns Assessment Noted Time PHQ-9 Depression Total Score: 0 09/17/20 23 9:47 AM EDT documented as of this encounter Care Teams Manager Marketing Relationship Specialty Start Date End Date Kathy Valverde DO [address] [place] [address] PCP - General Family Medicine 11/16/18 Haydee Deluca PharmD [address] [place] [address] Pharmacist Internal Medicine 12/03/23 documented as of this encounter
--- OUTSIDE RECORDS SUMMARY | 2025-03-03 09:03 | XMS_ITS | Encounter Summary ---
Author Organization [employer] Address [address] [facility] 7t [place] [address] Care Team Providers Care Test Desk Supervisor Name Role Phone AbramKathy Primary Care Provider [phone] Haydee Deluca PharmD Unavailable [phone] Reason for Visit * Reason Comments Med Refill Encounter Details Date Type Department Care Team ([facility] st Contact Info) Description 04/19/2024 Refill [facility] [address] [place] [address] Haydee Deluca, PharmD [address] [place] [address] Type 2 diabetes mellitus without complication, with long-term current use of insulin ([facility]) Social History Tobacco Use Types Packs/Day [...] complication, with long-term current use of insulin ([facility]) documented in this encounter Additional Health Concerns Assessment Noted Time PHQ-9 Depression Total Score: 0 09/17/20 23 9:47 AM EDT documented as of this encounter Care Teams Test Desk Supervisor Relationship Specialty Start Date End Date Kathy Valverde DO [address] [place] [address] PCP - General Family Medicine 11/16/18 HannyiaHaydee, PharmD [address] [place] [address] Pharmacist Internal Medicine 12/03/23 documented as of this encounter
--- OUTSIDE RECORDS SUMMARY | 2025-03-03 09:03 | XMS_ITS | Encounter Summary ---
Author Organization [employer] Address [address] [facility] 7t [place] [address] Care Team Providers Care Silver Spray Worker Name Role Phone AbramKathy Primary Care Provider [phone] Haydee Deluca PharmD Unavailable [phone] Reason for Visit * Reason Comments Med Refill Encounter Details Date Type Department Care Team ([facility] st Contact Info) Description 02/26/2024 Refill [facility] [address] [place] [address] Haydee Deluca, PharmD [address] [place] [address] Type 2 diabetes mellitus without complication, with long-term current use of insulin ([facility]) Social History Tobacco Use Types Packs/Day [...] complication, with long-term current use of insulin ([facility]) documented in this encounter Additional Health Concerns Assessment Noted Time PHQ-9 Depression Total Score: 0 09/17/20 23 9:47 AM EDT documented as of this encounter Care Teams Silver Spray Worker Relationship Specialty Start Date End Date Kathy Valverde DO [address] [place] [address] PCP - General Family Medicine 11/16/18 HannyiaHaydee, PharmD [address] [place] [address] Pharmacist Internal Medicine 12/03/23 documented as of this encounter
--- OUTSIDE RECORDS SUMMARY | 2025-03-03 09:03 | XMS_ITS | Encounter Summary ---
Author Organization [employer] Address [address] [facility] 7t [place] [address] Care Team Providers Care Rating Examiner Name Role Phone Kathy Valverde DO Primary Care Provider [phone] Haydee Deluca PharmD Unavailable [phone] Reason for Visit * Reason Onset Date Comments callback requested 10/10/2024 Encounter Details Date Type Department Care Team ([facility] Contact Info) Description 10/10/2024 Telephone [facility] [address] [place] [address] Kathy Valverde DO [address] [place] [address] callback requested Social History Tobacco Use Types [...] 11:52 AM EST TC placed to pt [phone] in regards to below message. Pt reports she cancelled her appointment with pharmacist (Haydee) d/t asthma flare. Pt reports she walks to [facility] and is concerned it would flare her [...] and r/s appointment. * Telephone Encounter - Ltio Simpson - 10/10/2024 11:28 AM EST Tc from pt requesting a callback to speak to PCP , pt had to cancel appointment for having asthma . Callback number [phone] documented in this encounter Plan of Treatment [...] documented as of this encounter Care Teams Rating Examiner Relationship Specialty Start Date End Date Kathy Valverde DO [address] [place] [address] PCP - General Family Medicine 11/16/18 Haydee Deluca, PharmD [address] [place] [address] Pharmacist Internal Medicine 12/03/23 documented as of this encounter
--- OUTSIDE RECORDS SUMMARY | 2025-03-03 09:03 | XMS_ITS | Encounter Summary ---
Author Organization [employer] Address [address] [facility] 7t [place] [address] Care Team Providers Care Pit Operator Name Role Phone Kathy Valverde DO Primary Care Provider [phone]- [phone] Haydee Deluca PharmD Unavailable [phone] Encounter Details Date Type Department Care Team ([facility] Contact Info) Description 11/12/2023 Abstract [facility] MEDICINE [address] [place] [address] Kathy Valverde DO [address] [place] [address] Social History Tobacco Use Types Packs/Day Years [...] documented as of this encounter Care Teams Pit Operator Relationship Specialty Start Date End Date Kathy Valverde DO [address] [place] [address] PCP - General Family Medicine 11/16/18 Haydee Deluca PharmD [address] [place] [address] Pharmacist Internal Medicine 12/03/23 documented as of this encounter
--- OUTSIDE RECORDS SUMMARY | 2025-03-03 09:03 | XMS_ITS | Encounter Summary ---
Author Organization [employer] Address [address] [place] [address] [address] [place] [address] Care Team Providers Care Ui Ux Web Developer Name Role Phone Kathy Valverde DO Primary Care Provider [phone]- [phone] Haydee Deluca PharmD Unavailable [phone] Reason for Visit * Reason Comments Med Refill Encounter Details Date Type Department Care Team ([facility] st Contact Info) Description 12/09/2022 Refill [facility] MEDICINE [address] [place] [address] Kathy Valverde DO [address] [place] [address] Asthma, unspecified asthma severity, unspecified whether complicated, [...] Primary documented in this encounter Care Teams Ui Ux Web Developer Relationship Specialty Start Date End Date Kathy Valverde DO [address] [place] [address] PCP - General Family Medicine 11/16/18 Haydee Deluca, PharmD [address] [place] [address] Pharmacist Internal Medicine 12/03/23 documented as of this encounter
--- OUTSIDE RECORDS SUMMARY | 2025-03-03 09:03 | XMS_ITS | Encounter Summary ---
Author Organization [employer] Address [address] [facility] 7t [place] [address] Care Team Providers Care Artificial Flowers Supervisor Name Role Phone Kathy Valverde DO Primary Care Provider [phone]- [phone] Haydee Deluca PharmD Unavailable [phone] Reason for Visit * Reason Onset Date Comments Medication Question 10/14/2023 Encounter Details Date Type Department Care Team ([facility] Contact Info) Description 10/14/2023 Telephone [facility] MEDICINE [address] [place] [address] Kathy Valverde DO [address] [place] [address] Medication Question Social History Tobacco Use Types [...] of the Ozempic. Please contact pt at [phone] documented in this encounter Plan of Treatment Not on file documented as of this encounter Visit Diagnoses Not on filedocumented in this encounter Additional Health Concerns Assessment Noted Time PHQ-9 Depression Total Score: 0 09/17/20 23 9:47 AM EDT documented as of this encounter Care Teams Artificial Flowers Supervisor Relationship Specialty Start Date End Date Kathy Valverde DO [address] [place] [address] PCP - General Family Medicine 11/16/18 Haydee Deluca PharmD [address] [place] [address] Pharmacist Internal Medicine 12/03/23 documented as of this encounter
--- OUTSIDE RECORDS SUMMARY | 2025-03-03 09:03 | XMS_ITS | Encounter Summary ---
Author Organization [employer] Address [address] [facility] 7t [place] [address] Care Team Providers Care Armature Winder Name Role Phone Kathy Valverde DO Primary Care Provider [phone]- [phone] Haydee Deluca PharmD Unavailable [phone] Reason for Visit * Reason Onset Date Comments Prior Authorization 11/05/2023 Ozempic, 0.2 5 Encounter Details Date Type Department Care Team ([facility] st Contact Info) Description 11/05/2023 Telephone [facility] MEDICINE [address] [place] [address] Kathy Valverde DO [address] [place] [address] Prior Authorization (Ozempic, 0.25 ) Social History [...] documented as of this encounter Care Teams Armature Winder Relationship Specialty Start Date End Date Kathy Valverde DO [address] [place] [address] PCP - General Family Medicine 11/16/18 Haydee Deluca, PharmD [address] [place] [address] Pharmacist Internal Medicine 12/03/23 documented as of this encounter
--- OUTSIDE RECORDS SUMMARY | 2025-03-03 09:03 | XMS_ITS | Encounter Summary ---
Author Organization [employer] Address [address] [facility] 7t [place] [address] Care Team Providers Care Supervisor Fruit Grading Name Role Phone Kathy Valverde DO Primary Care Provider [phone]- [phone] Haydee Deluca PharmD Unavailable [phone] Reason for Visit * Reason Comments Med Refill Encounter Details Date Type Department Care Team ([facility] st Contact Info) Description 02/21/2025 Refill [facility] MEDICINE [address] [place] [address] Kathy Valverde DO [address] [place] [address] Social History Tobacco Use Types Packs/Day Years [...] documented as of this encounter Care Teams Supervisor Fruit Grading Relationship Specialty Start Date End Date Kathy Valverde DO [address] [place] [address] PCP - General Family Medicine 11/16/18 Haydee Deluca, PharmD [address] [place] [address] Pharmacist Internal Medicine 12/03/23 documented as of this encounter
--- OUTSIDE RECORDS SUMMARY | 2025-03-03 09:03 | XMS_ITS | Encounter Summary ---
Author Organization [employer] Address [address] [facility] [address]t [address] Floor [place] [id number] Care Team Providers Care Program Services Assistant Name Role Phone Kathy Valverde DO Primary Care Provider [phone] Haydee Deluca PharmD Unavailable [phone] Reason for Visit * Reason Onset Date Comments Med Refill 07/01/2024 Encounter Details Date Type Department Care Team ([facility] st Contact Info) Description 07/01/2024 Refill [facility] MEDICINE [address] [place] [address] Kathy Valverde DO [address] [place] [address] Asthma, unspecified asthma severity, unspecified whether complicated, [...] documented as of this encounter Care Teams Program Services Assistant Relationship Specialty Start Date End Date Kathy Valverde DO [address] [place] [address] PCP - General Family Medicine 11/16/18 Puia, Haydee, PharmD [address] [place] [address] Pharmacist Internal Medicine 12/03/23 documented as of this encounter
--- OUTSIDE RECORDS SUMMARY | 2025-03-03 09:03 | XMS_ITS | Encounter Summary ---
Author Organization [employer] Address [address] [facility] 7t [place] [address] Care Team Providers Care Under Cutter Name Role Phone Kathy Valverde DO Primary Care Provider [phone]- [phone] Haydee Deluca PharmD Unavailable [phone] Reason for Visit * Reason Onset Date Comments Nurse Triage 09/28/2024 Encounter Details Date Type Department Care Team ([facility] st Contact Info) Description 09/28/[address] [facility] MEDICINE [address] [place] [address] Kathy Valverde DO [address] [place] [address] Nurse Triage Social History Tobacco Use Types [...] headache. Pt is offered to come to [facility] seen by provider, no apts available [...] caller accepted this outcome. Contact pt at [phone] documented in this encounter Plan of Treatment [...] documented as of this encounter Care Teams Under Cutter Relationship Specialty Start Date End Date Kathy Valverde DO [address] [place] [address] PCP - General Family Medicine 11/16/18 Hannyia, Haydee, PharmD [address] [place] [address] Pharmacist Internal Medicine 12/03/23 documented as of this encounter
--- OUTSIDE RECORDS SUMMARY | 2025-03-03 09:03 | XMS_ITS | Clinical Summary ---
Author Organization [employer] Address [address] [facility] 7t [place] [address] Care Team Providers Care Truck Driver Heavy Name Role Phone AbramKathy Primary Care Provider Haydee Deluca PharmD Unavailable [phone] Allergies Active Allergy Reactions Criticality Noted Date Comments Cyclobenzaprine Itching 02/09/2013 Tramadol 12/14/2020 Medications * This document contains information received from the source organization and may not represent a complete record from that organization. Continuous Blood Gluc Tape Controlled Machine Stitcher (FreeStyle Shyann 2 [place]) device Scan sensor every 8 hours 1 [...] a, with long-term current use of insulin ([facility]) USE THREE TIMES DAILY 100 [...] complication, with long-term current use of insulin ([facility]) TEST BLOOD SUGAR THREE TIMES DAILY 100 each 11 11/08/20 24 Active insulin degludec (Tresiba FlexTouch) 200 UNIT/ML injectionIndica tions:Type 2 diabetes mellitus without complication, with long-term current use of insulin ([facility]) Inject 50 Units under the skin at bedtime. 9 mL 8 11/08/20 24 Active Continuous Glucose Sensor (FreeStyle Shyann 2 Sensor) miscIndications :Type 2 diabetes mellitus without complication, with long-term current use of insulin ([facility]) APPLY SENSOR EVERY 14 DAYS DIRECTED 2 each 11/08/20 Active insulin pen needle 32G x 4 mm miscIndications :Type 2 diabetes mellitus without complication, with long-term current use of insulin ([facility]) Use to inject insulin 1 times daily 100 each 11/08/20 24 Active lisinopril 40 MG tabletIndicatio ns:Type 2 diabetes mellitus without complication, with long-term current use of insulin ([facility]),Essen tial hypertension Take 1 tablet [...] week. 2 mL 3 01/31/20 25 Active glucose blood (FreeStyle Precision Gelacio Test) test stripIndication s:Type 2 diabetes mellitus without complication, with long-term current use of insulin ([facility]) Use to test blood sugar up to 3 times daily, as directed 100 each 11 02/17/20 25 Active glucose blood (FreeStyle Precision Gelacio Test) test stripIndication s:Type 2 diabetes mellitus without complication, with long-term current use of insulin ([facility]) Use to test blood sugar up to 3 times daily, as directed 100 each 11 11/08/20 24 025 Discontinued(Re order (will not trigger notification [...] asmanex BID -continue albuterol prn -advised contact [facility] if no improvement Healthcare maintenance 02/15/2024 Assessment [...] scheduled -s/p optho exam AUG 2022 at [facility], appt this mos -foot exam next visit [...] eval with ortho/PM given results -advised contact [facility] if sx change or worsen Chronic gastroesophageal reflux disease 05/23/20 16 Assessment & Plan (02/15/2024 3:07 PM EDT): No improvement with ozempic -continue prilosec BID -trial Zofran prn -will check with [facility] radiology re: GES -consider change GLP-1 -referred [...] organization. Date Type Department Care Team Description 02/24/2025 Telephone [facility] [place] [address] Kathy Valverde DO Prior Authorization ( VITOR Request: Maria) 02/21/2025 Refill [facility] [place] [address] Kathy Valverde DO 02/20/2025 Telephone [facility] [place] [address] Kathy Valverde DO PA 02/17/2025 Telephone [facility] [place] [address] Kathy Valverde DO Prior Auth Prescription; Prior Authorization ( VITOR Request: Maria) 02/15/2025 Refill [facility] [place] [address] Kathy Valverde DO Type 2 diabetes mellitus without complication, with long-term current use of insulin (CMS/HCC) 01/31/2025 Telephone [facility] [place] [address] Blanca Rosario RN Medication Question 01/30/2025 10:30 AM EDT Office Visit [facility] [place] [address] Kathy Valverde DO Type 2 diabetes mellitus with diabetic microalbuminuria, with long-term current use of insulin (CMS/HCC) (Primary Dx); Essential hypertension; Other hyperlipidemia; Fatty liver; Anxiety and depression; Chronic low back pain with right-sided sciatica, unspecified back pain laterality; Chronic pain of both knees; Mild persistent asthma without complication; Chronic GERD; Healthcare maintenance; Screening for colon cancer 01/30/2025 Travel 01/27/2025 Population Health Risk Score [facility] () Department [address] [place] [phone] Provider, Population Health Generic 01/13/2025 Refill [facility] [address] [place] [phone] Celso Wren MD Asthma, unspecified asthma severity, unspecified whether complicated, unspecified whether persistent 01/12/2025 Refill [facility] [address] [place] [address] Kathy Valverde DO Seasonal allergic rhinitis, unspecified trigger; Asthma, unspecified asthma severity, unspecified whether complicated, unspecified whether persistent 12/15/2024 Telephone [facility] [address] [place] [phone] Betina Durán MA Recall Appt. 12/15/2024 Travel 12/13/2024 9:20 AM EST Office Visit [facility] [address] [address] Celso Wren MD Influenza-like symptoms (Primary Dx); Asthma, unspecified asthma severity, unspecified whether complicated, unspecified whether persistent; Chronic nasal congestion; Essential hypertension; Viral URI 12/03/2024 Refill [facility] [address] [place] [address] Kathy Valverde DO Asthma, unspecified asthma severity, unspecified whether complicated, unspecified whether persistent from Last 3 Months Immunizations Name Administration Dates Next Due Hep A, Adult 11/19/2023,04/12/2010 Hep B, adult 11/19/2023,05/23/2010,04/12/2010 Influenza injectable quadriv alent IIV4 with preservative 08/10/2018,08/04/2017,09/23/2016 Influenza injectable quadriv alent preservative free 09/03/2023,12/10/2020,08/31/2019 Influenza, IIV3, injectable 08/29/2010, 9 Influenza, Split (incl. angel f[place] antigen) 08/05/2013 Influenza, seasonal, injecta ble, preservative free 08/17/2024 Pfizer Covid-19 Vaccine 12+ 08/17/2024, 3 Pneumococcal Conjugate PCV 20 09/17/2023 TD (adult), [...] Done Comments CT Colonography 1979 Colonoscopy 1979 FIT 1979 FOBT 1979 Sigmoidoscopy 1979 Diabetes: Foot Exam 1989 Alcohol/Substance Use Screening 1991 Family Planning (PISQ) 1994 SDOH Screening 02/03/2025 02/04/2024 Pap Smear 05/02/2025 05/02/2022 Lipid Panel 07/13/2025 07/13/2024, 11/0 01/2023, 12/10/2020 Depression Monitoring 08/02/2025 01/30/2025, 025 Diabetes: Hemoglobin A1C 08/02/2025 025, 11/08/2024, 07/13/2024, Additional history exists Tobacco Screening 12/13/2025 12/13/2024 Mammogram 01/14/2026 01/15/2024 Depression Screening 01/30/2026 01/30/2025, 01/31/20 25 Eye Exam 03/10/2026 03/10/2024, 042 03/2024, 03/10/2024, Additional history exists Cervical Cancer Screening 05/02/2027 HPV/Cotest 05/02/2027 05/02/2022, 05/13/2019 Colorectal Cancer Screening 02/17/2028 FIT DNA/Cologuard 02/17/2028 02/16/2025 Zoster Vaccines (1 of 2) 2029 DTaP/Tdap/Td [...] blood sugar as directed Result Component No Yosi, Haydee, PharmD Procedures Procedure Name Priority Date/Time Associated Diagnosis Comments LAB COLOGUARD?? COLON CANCER SCREEN Routine 02/16/2025 8:42 AM EDT Screening for colon cancer POCT GLYCATED HEMOGLOBIN, TOTAL Routine 01/30/2025 10:31 AM EDT Type 2 diabetes mellitus with diabetic microalbuminuria, with long-term current use of insulin ([facility]) POCT GLUCOSE Routine 01/30/2025 10:30 [...] Routine 12/13/2024 9:28 AM EST Viral URI HEPATITIS C AB W/REFL TO HCV RNA, [...] Recently Relevant to Health Maintenance Results * Cologuard?? colon cancer screening (02/16/2025 8:42 AM EDT) Cologuard Result Negative Negative 02/23/20 1:10 AM EDT [facility] (CLIA #:[id number]) Comment: NEGATIVE TEST RESULT. A negative Cologuard result indicates a low likelihood that a colorectal cancer (CRC) or advanced adenoma (adenomatous polyps with more advanced pre-malignant features) ??is present. The chance that a person with a negative Cologuard test has a colorectal cancer is less than 1 in 1500 (negative predictive value >99.9%) or has an ??advanced adenoma is less than ??5.3% (negative predictive value 94.7%). These data are based on a prospective cross-sectional study of 10,000 individuals at average risk for colorectal cancer who were screened with both Cologuard and colonoscopy. (Wes Maldonado. et al, N Engl J Med 2014;370(14):1286- 1297) The normal value (reference range) for this assay is negative. COLOGUARD RE-SCREENING RECOMMENDATION: Periodic colorectal cancer screening is an important part of preventive healthcare for asymptomatic individuals at average risk for colorectal cancer. ??Following a negative Cologuard result, the British Cancer Society and U.S. Multi-Society Task Force screening guidelines recommend a Cologuard re-screening interval of 3 years. References: British Cancer Society Guideline for Colorectal Cancer Screening: https://www.cancer.org/cancer/pvsxe-pzfjfs-vtvvsg/xhnkbcowj-mzexplchz-topdtxw/ac s-rec ommendations.html.; Joby MANN, Judy FERREIRA, Jamin BernsteinK, Colorectal Cancer Screening: Recommendations for Physicians and Patients from the U.S. Multi-Society Task Force on Colorectal Cancer Screening , Am J Gastroenterology 2017; 112:5380-3127. TEST DESCRIPTION: Composite algorithmic analysis of stool DNA-biomarkers with hemoglobin immunoassay. ?? Quantitative values of individual biomarkers are not reportable and are not associated with individual biomarker result reference ranges. Cologuard is intended for colorectal cancer screening of adults of either sex, 45 years or older, who are at average-risk for colorectal cancer (CRC). Cologuard has been approved for use by the U.S. FDA. The performance of Cologuard was established in a cross sectional study of average-risk adults aged 50-84. Cologuard performance in patients ages 45 to 49 years was estimated by sub-group analysis of near-age groups. Colonoscopies performed for a positive result may find as the most clinically significant lesion: colorectal cancer [4.0%], advanced adenoma (including sessile serrated polyps greater than or equal to 1cm diameter) [20%] or non- advanced adenoma [31%]; or no colorectal neoplasia [45%]. These estimates are derived from a prospective cross-sectional screening study of 10,000 individuals at average risk for colorectal cancer who were screened with both Cologuard and colonoscopy. (Wes Maldonado. et al, N Engl J Med 2014;370(14):3732-9321.) Cologuard may produce a false negative or false positive result (no colorectal cancer or precancerous polyp present at colonoscopy follow up). A negative Cologuard test result does not guarantee the absence of CRC or advanced adenoma (pre-cancer). The current Cologuard screening interval is every 3 years. (British Cancer Society and U.S. Multi-Society Task Force). Cologuard performance data in a 10,000 patient pivotal study using colonoscopy as the reference method can be accessed at the following location: www.Fullscreen/results. Additional description of the Cologuard test process, warnings and precautions can be found at www.Roadmunkrd.com. Stool specimen (specimen) 02/16/2025 8:42 AM EDT 02/18/2025 2:20 PM EDT Kathy Valverde DO LAB MOLECULAR DIAGNOSTICS OR DERABLES Final Result [facility] (CLIA #:[id number]) [address] [place] [address], * POCT HGB A1C (01/30/2025 10:31 AM EDT) Pathologist [facility] Hemoglobin A1C 5.7 4.0 - 6.0 % QC Media Lot # [id number] Lot# Expiration Date Blood 01/30/2025 10:3 1 AM EDT Kathy Abram DO POINT OF CARE TEST ENTER/CAESAR T ORDERABLES Final Result * POCT Glucose (01/30/2025 10:30 AM EDT) Pathologist [facility] Glucose Blood, POC 91 60 - 200 mg/dL QC Media Lot # [id number] Lot# Expiration Date Blood Capillary blood specimen / Unknown 01/30/2025 10:30 AM EDT Kathy Valverde DO POINT OF CARE TEST ENTER/CAESAR T ORDERABLES Final Result * Influenza B (ID NOW Rapid Molecular) (12/13/2024 9:28 AM EST) [facility] Influenza B Negative Negative, Indeterminate [facility] Swab 12/13/2024 9:28 AM EST Celso Wren MD POINT OF CARE TEST ENTER/EDIT OR DERABLES Final Result [facility] [address] [place] [phone] * Influenza A (ID NOW Rapid Molecular) (12/13/2024 9:28 AM EST) [facility] Influenza A Negative Negative, Indeterminate [facility] Swab 12/13/2024 9:28 AM EST Celso Wren MD POINT OF CARE TEST ENTER/EDIT OR DERABLES Final Result [facility] [address] [place] [address] [phone] * POCT Rapid COVID Ag (12/13/2024 9:28 AM EST) [facility] Rapid COVID Ag Negative [facility] Swab 12/13/2024 9:28 AM EST Celso Wren MD POINT OF CARE TEST ENTER/EDIT OR DERABLES Final Result [facility] [address] [place] [address] [phone] * POCT rapid strep A manually resulted (12/13/2024 9:28 AM EST) [facility] Rapid Strep A Screen Negative Negative, None Detected Swab 12/13/2024 9:28 AM EST Celso Wren MD POINT OF CARE TEST ENTER/EDIT OR DERABLES Final Result * Hepatitis C Antibody with Reflex to HCV, RNA, Quantitative, Real-Time PCR (07/13/2024 10:52 AM EDT) [facility] Hepatitis C Antibody Nonreactive Nonreactive [facility] Comment:Antibodies to HCV no t detected; does not exclude early acuteHCV infection. Blood Venous blood specimen / Unknown 07/13/2024 10:52 AM EDT 07/13/2024 1:25 PM EDT Kathy Valverde DO LAB BLOOD ORDERABLES Final R esult Performing Organization Address City/[facility]/ZIP Co de Phone Number [facility] [address] [place] [address] [phone] * HIV-1/2 Antigen and Antibodies, Fourth Generation, with Reflexes (07/13/2024 10:52 AM EDT) [facility] HIV AB/AG Nonreactive Nonreactive [facility] Comment:HIV-1 p24 Ag and/or HIV-1/HIV-2 Ab not detected.A test result that is nonreactive does not exclude thepossibility of exposure to or infection with HIV-1 and/orHIV-2. Nonreactive results in this assay for individualswith prior exposure to HIV-1 and/or HIV-2 may be due toantigen and antibody levels that are below the limit ofdetection of this assay.The Comparisim HIV Ag/Ab Combo assay result andsupplemental assay results should be interpreted inconjunction with the patient's clinical presentation,history and other laboratory results. If the results areinconsistent with clinical evidence, additional testing issuggested to confirm the result. Blood Venous blood specimen / Unknown 07/13/2024 10:52 AM EDT 07/13/2024 1:25 PM EDT us Kathy Valverde DO LAB BLOOD ORDERABLES Final R esult [facility] [address] [place] [phone] * Lipid Panel, Standard (07/13/2024 10:52 AM EDT) Triglycerides 47 <150 mg/dL [facility] Comment:Desirable Triglyceri de: less than 150 mg/dLBorderline High Triglyceride 150-199 mg/dLHigh Triglyceride: 200-499 mg/dLVery High Triglyceride: greater than or equal to 5OO mg/dL Cholesterol 124 <200 mg/dL [facility] Comment:Desirable Cholestero l: less than 200 mg/dLBorderline High Cholesterol: 200-239 mg/dLHigh Cholesterol: greater than 239 mg/dL LDL Cholesterol Calculated 67 <100 mg/dL [facility] Comment:Desirable LDL: less than 100 mg/dLNear Optimal/Above Optimal LDL: 110- 129 mg/dLBorderline High LDL: 130-159 mg/dLHigh LDL: 160-189 mg/dLVery High LDL: greater than or equal to 190 mg/dL HDL Cholesterol 48 >40 mg/dL [facility] Comment:Desirable HDL: great er than 40 mg/dL Note: This HDL assay may give artificially low results in patients with liver disease. Blood Venous blood specimen / Unknown 07/13/2024 10:52 AM EDT 07/13/2024 1:25 PM EDT us Kathy Graysarina DO LAB BLOOD ORDERABLES Final R esult [facility] [address] [place] [address] [phone] * BI Mammogram Screening Tomosynthesis Bilateral (01/15/2024 8:30 AM EST) Anatomical Region Laterality Modality Breast Bilateral Mammography 01/15/2024 8:30 AM EST Narrative 01/31/2024 6:47 PM EDT ? [facility] ? [address] ?[place] [address] ? Mammography Report ? Signed ? Patient: Shannon Santos R ?MR#: [id number] ?? [id number] ? : 1980 ?Acct:[id number] ? Age/Sex: 43 / F ?ADM Date: 01/15/24 ? Loc: HO.MAMMO ? Attending Dr: Kathy A Abram DO ? Ordering Physician: Abram,Kathy A DO ?Results: 1N ?? egative ? Date of Service: 01/15/24 ?Follow Up: 1 Year From Orig ?? inal Mammogram ? Procedure(s): MM tomosynthesis screening BI ?? Accession Number(s): [id number] ? cc: Kathy Valverde DO ? EXAMINATION: ?? MM SCREENING DIGITAL BREAST TOMOSYNTHESIS, BILATERAL ? CLINICAL INFORMATION: ? Screening. Asymptomatic. ? COMPARISON: ?? Mammography: This study is compared with prior exams dating back to ?? 2019. ? TECHNIQUE: ?? Digital breast tomosynthesis is [...] 1844 ? DD/ 9 ? TD/TT: ? Automatic Brine Mixer Operator: ? Procedure Note Elly, Image - 01/31/2024 [facility] [address] [place] [address] Dr. Sigala, J[place]AMIE [address] Mammography Report Signed Patient: Shannon Santos RMR#: [id number] : 1980Acct:[id number] Age/Sex: 43 / FADM Date: 01/15/24 Loc: ANIL.MAMMO Attending Dr: Kathy Valverde DO Ordering Physician: Kathy Valverdeults: 1N egative Date of Service: 01/15/24Follow Up: 1 Year From Orig ina Mammogram Procedure(s): MM tomosynthesis screening BI Accession Number(s): [id number] cc: Kathy Valvered DO EXAMINATION: MM SCREENING DIGITAL BREAST TOMOSYNTHESIS, [...] in OV> 01/31/24 1844 DD/ 0830 TD/TT: Automatic Brine Mixer Operator: Kathy Valverde DO [facility] [place] PROCEDURES Edited Res ult - Final [...] has been evaluated with computer assisted technology. [facility] Field Irrigation Worker : SEE COMMENT [facility] Comment: SXA, CT(ASCP) CT screening location: [address] ??[address] Interpretation/R esult: Negative for intraepithelial lesion or malignancy. [facility] LMP: NONE GIVEN [facility] Prev. BX: NONE [facility]IVEN [facility] Prev. PAP: NONE [facility]IVEN [facility] SOURCE: None given [facility] Statement Of Adequacy: SEE COMMENT [facility] Comment: Satisfactory for evaluation. Endocervical/transformation zone component present. Age and/or menstrual status not provided 05/02/2022 12:0 7 PM EDT Kathy Valverde DO LAB PATHOLOGY ORDERABLES Fin al Result Performing Organization Address [facility]/RUST de Phone Number [facility] [address] * HPV mRNA E6/E7 REFLEX TO HPV 16, 18/45 (05/02/2022 12:07 PM EDT) HPV nRNA E6/E7 Not Detected Not Detected [facility] Comment: Methodology: [employer]-Mediated Amplification This assay detects E6/E7 viral messenger RNA (mRNA) from 14 high-risk HPV types (16,18,31,33,35,39,45,51,52,56,58,59,66,68). ? Cervical sources are required for HPV testing. If a vaginal source from a patient who has had a total hysterectomy with removal of cervix was ?? submitted, please contact the testing laboratory for alternative testing options. ?? For additional information, please refer to http://education.Sportsgrit/faq/WYF693w6 (This link if provided for information/ educational purposes only.) 05/02/2022 12:0 7 PM EDT Kathy Valverde DO LAB CYTOLOGY ORDERABLES Анна l Result Performing Organization Address [facility] Co de Phone Number [facility] [address] from Last 3 Months or Most Recently Relevant to Health Maintenance Insurance [facility] MEDICAID STAND ADULT Care Teams Truck Driver Heavy Relationship Specialty Start Date End Date Kathy Valverde DO [address] [place] [address] PCP - General Family Medicine 11/16/18 Haydee Deluca PharmD [address] [place] [address] Pharmacist Internal Medicine 12/03/23
--- OUTSIDE RECORDS SUMMARY | 2025-03-03 09:03 | XMS_ITS | Encounter Summary ---
Author Organization [employer] Address [address] [facility] [address] [place] [id number] Care Team Providers Care Dinkey Dispatcher Name Role Phone Kathy Valverde DO Primary Care Provider [phone] Haydee Deluca PharmD Unavailable [phone] Reason for Visit * Reason Onset Date Comments Med Refill 08/04/2024 Encounter Details Date Type Department Care Team ([facility] st Contact Info) Description 08/04/2024 Refill [facility] [address] [place] [address] Kathy Valverde DO [address] [place] [address] Asthma, unspecified asthma severity, unspecified whether complicated, [...] documented as of this encounter Care Teams Dinkey Dispatcher Relationship Specialty Start Date End Date Kathy Valverde DO [address] [place] [address] PCP - General Family Medicine 11/16/18 Puia, Haydee, PharmD [address] [place] [address] Pharmacist Internal Medicine 12/03/23 documented as of this encounter
[2025-03-03 09:47] VITALS: BP 171/75; PULSE 60; RESP 16; O2SAT 98; BMI 41.6
== END 2025-03-03 10:19 | disposition home or self-care (01) ==
LOC: HO.PMC 08:40
PROVIDERS: PCP Family Medicine; Referring Provider Physician Assistant; Visit Provider Internal Medicine
DX: Q05.9 Spina bifida, unspecified (principal); Z98.890 Other specified postprocedural states
CPT/HCPCS: 99204

== ENCOUNTER → 2025-03-03 08:40 | Outpatient (BNVA) | payer MEDICAID, SELFPAY | PROVIDERS: PCP Family Medicine; Referring Provider Physician Assistant; Visit Provider Internal Medicine | DX: Q05.9 Spina bifida, unspecified (principal); Z98.890 Other specified postprocedural states | CPT/HCPCS: 99202 ==

== ENCOUNTER 2025-04-28 11:13 | Outpatient (AMB) | payer MEDICAID, SELFPAY ==
--- NOTE | 2025-04-28 11:13 | A.OFFVIS_ITS ---
Intake Visit Reasons: Discuss treatment options Allergies Flexeril Allergy (Unknown, Verified 03/03/25 09:48) palpitations, itching, swelling, tachycardia tramadol (TRAMADOL) Allergy (Unknown, Verified 03/03/25 09:48) ITCHING gabapentin Allergy (Verified 03/03/25 09:48) Rash HPI HPI Discuss treatment options: Details: History of Present Illness The patient is a 44-year-old female presenting with severe chronic back pain, predominantly in the lower back with extension to the legs, causing numbness. The pain has progressively worsened, affecting her mobility and ability to perform activities, especially climbing stairs. Past measures, including medication and physical therapy, yielded insufficient relief. There is a notable increase in pain severity interfering with daily activities and quality of life. Claustrophobia has inhibited her ability to undergo MRI, complicating further diagnostic evaluation. Previous lumbar surgical history and ineffective pain management attempts, including injections, underline the chronic nature of her condition. Pain Description - Onset: Unspecified, progressively worsening - Quality: Severe, spreading from lower back to legs, causing numbness - Primary Location: Lower back, mid-region - Radiation: Bilateral leg numbness - Exacerbating Factors: Walking, climbing stairs - Relieving Factors: Previous medications (now ineffective) - Interference: Hindrance in mobility, daily activities, appointments Physical Exam - Appears afebrile. - Alert and oriented. - Mood and affect appropriate. - Follows and participates in conversation appropriately. - Respiratory effort is unlabored. - Able to transition from sit to stand unassisted. - Ambulates with bilaterally normal heel strike and toe off. - Able to stand and walk on toes and heels. Results Pain Management - Affect: Significant impact on quality of life; apprehensive about invasive procedures. - Analgesia: Ineffectiveness of Naprosyn, ibuprofen, Tylenol, patches, and prescribed creams. - Adverse Effects: None reported, but existing treatments no longer effective. - Activities of Daily Living: Difficulty with mobility, attending appointments, and performing household tasks. - Aberrant Drug Related Behaviors: None reported; compliant with tried treatments. [facility] Medical History (Updated 05/16/25 @ 10:49 by Xavier Parisi MD) Sensorineural hearing loss GERD (gastroesophageal reflux disease) Fatty liver Chronic back pain Morbid obesity Spina bifida No known health problems Surgical History (Updated 03/14/25 @ 16:30 by Xavier Parisi MD) History of cholecystectomy History of back surgery Family History (Updated 04/07/24 @ 09:21 by CHRISTIANNE Kuo) Mother HTN (hypertension) Father Aneurysm Diabetes Stroke Sister HTN (hypertension) Social History Alcohol intake: never Patient Tobacco Use Status: Never used Tobacco Telehealth Telehealth Telehealth Platform: [employer] Location of provider rendering services: practice address Location of patient: address on file Patient Identification confirmed using: Name, : Yes Telehealth method: video Patient verbally consented to treatment: Yes Patient verbally consented to billing insurance company: Yes Patient informed of any privacy concerns related to visit: Yes Minutes spent on Phone/Video with Pt.: 12 Assessment & Plan Assessment & Plan (1) Spina bifida: Code(s): Q05.9 - Spina bifida, unspecified Category: Medical (2) History of back surgery: Code(s): Z98.890 - Other specified postprocedural states Category: Surgical (3) Chronic pain: Code(s): G89.29 - Other chronic pain Category: Medical Plan Plan - Initiate psychological clearance for intrathecal pump evaluation. - Perform a trial injection following psychological clearance to evaluate effectiveness for pain management. Patient was informed and verbally consented to the use of an ambient scribe for clinic note documentation during this visit. Discussion Notes Today, I discussed with the patient the potential of using an intrathecal pump for managing her severe chronic back pain and radiation to her legs, given her condition's refractoriness to other treatment modalities. I explained the need f or psychological clearance as a prerequisite, citing insurance protocols, and discussed the possibility of a trial injection to ascertain the intervention's viability. The logistics of potentially working with specialists in [place] were explored, given the complexities of her condition post-surgical operation history. Patient concerns about travel and familial obligations were noted, which may necessitate future planning for local management support, such as refill coordination with [facility] specialists. Patient Instructions - Await scheduling for psychological clearance for the possible intrathecal pump. - Prepare for trial injection following clearance to evaluate relief potential. - Monitor pain levels and report any changes to current medication. - Maintain routine daily activities as tolerated, seeking assistance as needed. Coding Level of Care Code Tele Est Pt Level 3 (68330) Diagnoses Spina bifida Q05.9 History of back surgery Z98.890 Chronic pain G89.29
== END 2025-04-28 11:13 | disposition home or self-care (01) ==
LOC: HO.PMC 11:13
PROVIDERS: PCP Family Medicine; Visit Provider Internal Medicine
DX: Q05.9 Spina bifida, unspecified (principal); Z98.890 Other specified postprocedural states; G89.29 Other chronic pain
CPT/HCPCS: 99213

== ENCOUNTER 2025-06-14 09:57 | Outpatient (REF) | payer MEDICAID, SELFPAY ==
[2025-06-14 11:39] LABS: Hematocrit 43.3 % (37.0-47.0); Hemoglobin 14.7 g/dl (12.0-16.0); Mean Corpuscular HGB Conc 33.9 g/dl (31.0-35.0); Mean Corpuscular Hemoglobin 28.2 pg (27.0-33.0); Mean Corpuscular Volume 83.1 fL (80.0-98.0); NRBC Abs Auto 0.000 X10*3/uL (0.0-0.012); NRBC Pct Auto 0.0 /100WBC (0.0-0.2); Platelet Count 272 X10*3/uL (160-400); Red Blood Count 5.21 X10*6/uL (4.20-5.50); White Blood Count 7.6 X10*3/uL (4.8-10.8)
[2025-06-14 12:32] LABS: Microalbum/Creatinine Ratio Ur 11.2 ug/mg cr (<30)
[2025-06-14 13:01] LABS: CT PCR Urine NOT DETECTED (Not Detect.); NG PCR Urine NOT DETECTED (Not Detect.)
[2025-06-14 13:09] LABS: Hemoglobin A1C 149.6921 umol/L; Total Hemoglobin (HGBA1C) 4156.7572 umol/L
[2025-06-14 14:00] LABS: Alanine Aminotransferase 20 U/L (0-31); Albumin Level 4.5 g/dL (3.5-5.0); Alkaline Phosphatase 98 U/L (39-117); Anion Gap 13 (12-20); Aspartate Amino Transferase 25 U/L (5-31); Blood Urea Nitrogen 15 mg/dL (9-16); Calcium 10.0 mg/dL (8.4-10.2); Carbon Dioxide 27 mmol/L (22-29); Chloride 104 mmol/L (96-108); Cholesterol 145 mg/dL (<200); Estimated Glomerular Filt Rate > 60; HDL Cholesterol 54 mg/dL (>40); Potassium 4.1 mmol/L (3.3-5.1); Sodium 140 mmol/L (135-145); Total Protein 8.2 g/dL (6.5-8.0); Triglycerides 66 mg/dL (<150)
[2025-06-14 14:04] LABS: Free T4 (Free Thyroxine) 1.02 ng/dL (0.71-1.85); Thyroid Stimulating Hormone 1.40 uIU/mL (0.32-4.0)
[2025-06-14 15:35] LABS: CT PCR NOT DETECTED (Not Detect.); NG PCR NOT DETECTED (Not Detect.)
[2025-06-15 05:44] LABS: Follicle Stimulating Hormone 37.8 mIU/mL
[2025-06-15 08:28] LABS: HIV Num 1 0.04 S/CO (0.00-0.99); ~HepC Num1 0.08 S/CO (0.00-0.79); ~Hepatitis C Antibody Nonreactive (Nonreactive)
== END 2025-06-14 09:58 | disposition home or self-care (01) ==
LOC: HO.HHCL 09:57
PROVIDERS: PCP Family Medicine; Visit Provider Family Medicine
DX: Z11.4 Encounter for screening for human immunodeficiency virus [HIV] (principal); Z11.59 Encounter for screening for other viral diseases; Z01.419 Encounter for gynecological examination (general) (routine) without abnormal findings; E11.9 Type 2 diabetes mellitus without complications; M54.41 Lumbago with sciatica, right side; Z79.4 Long term (current) use of insulin; G89.29 Other chronic pain
CPT/HCPCS: 36415; 80048; 80061; 80076; 82043; 82105; 82306; 82570; 83001; 83002; 83036; 84439; 84443; 85027; 86592; 86803; 87389; 87491; 87591; 87626; 88175

== ENCOUNTER 2025-06-27 10:18 | Outpatient (REF) | payer MEDICAID, SELFPAY ==
--- OUTSIDE RECORDS SUMMARY | 2025-06-27 11:20 | XMS_ITS | Clinical Summary ---
Author Organization [employer] Address [address] [facility] [place] [address] Care Team Providers Care [employer] Manager Name Role Phone Abram Kathy Primary Care Provider Allergies Active Allergy Reactions Criticality Noted Date Comments Cyclobenzaprine Itching 02/09/2013 Tramadol 12/14/2020 Medications * This document contains information received from the source organization and may not represent a complete record from that organization. Continuous Blood Gluc Lead Man Over All [employer] ([employer] [place]) device Scan sensor every 8 hours 1 each 09/17/20 23 Active Alcohol Swabs (Alcohol Prep) 70 % padsIndications :Type 2 diabetes mellitus with diabetic microalbuminuri a, with long-term current use of insulin ([facility]) USE THREE TIMES DAILY 100 each 11 06/14/20 24 Active atorvastatin (Lipitor) 10 MG tablet TAKE 1 TABLET BY MOUTH EVERY EVENING 90 tablet 3 09/21/20 24 Active hydrocortisone 2.5 % creamIndication s:Seborrheic dermatitis APPLY TOPICALLY TO AFFECTED AREA(S) TWICE DAILY 30 g 3 09/27/20 24 Active metroNIDAZOLE (Metrocream) 0.75 % creamIndication s:Rosacea APPLY TOPICALLY TO AFFECTED AREA(S) TWICE DAILY DIRECTED 45 g 3 09/30/20 24 Active Diclofenac Sodium 1 % gel APPLY 2 GRAMS TOPICALLY FOUR TIMES DAILY NEEDED FOR PAIN 100 g 5 10/05/20 24 Active TRUEplus Lancets 33G miscIndications :Type 2 diabetes mellitus without complication, with long-term current use of insulin ([facility]) TEST BLOOD SUGAR THREE TIMES DAILY 100 each 11/08/20 24 Active Continuous Glucose Sensor (FreeStyle Shyann 2 Sensor) miscIndications :Type 2 diabetes mellitus without complication, with long-term current use of insulin ([facility]) APPLY SENSOR EVERY 14 DAYS DIRECTED 2 each 11/08/20 Active insulin pen needle 32G x 4 mm miscIndications :Type 2 diabetes mellitus without complication, with long-term current use of insulin ([facility]) Use to inject insulin 1 times daily 100 each 3 11/08/20 24 Active lisinopril 40 MG tabletIndicatio ns:Type 2 diabetes mellitus without complication, with long-term current use of insulin ([facility]),Essen tial hypertension Take 1 tablet [...] DAY 90 tablet 1 01/13/20 25 Active esomeprazole (NexIUM) 40 MG packet Take 40 mg by mouth before breakfast and before evening meal. 180 each 01/31/20 25 026 Active hydrOXYzine pamoate (Vistaril) [...] complication, with long-term current use of insulin ([facility]) Use to test blood sugar up to 3 times daily, as directed 100 each 02/17/20 25 Active baclofen (Lioresal) 10 MG tablet TAKE 1 TABLET BY MOUTH THREE TIMES DAILY NEEDED FOR MUSCLE SPASMS 60 tablet 04/26/20 25 Active acetaminophen (Tylenol 8 Hour) 650 MG ER tablet TAKE 1 TABLET BY MOUTH EVERY 8 HOURS NEEDED FOR MILD OR MODERATE PAIN. DO NOT BREAK, CRUSH, DISSOLVE OR CHEW 60 tablet 04/26/20 25 Active lidocaine (Lidoderm) 5 % patch APPLY 1 PATCH TOPICALLY TO SKIN, LEAVE ON FOR 12 HOURS AND OFF FOR 12 HOURS DIRECTED 30 patch 3 04/26/20 25 Active ondansetron (Zofran) 4 MG tablet TAKE 1 TABLET BY MOUTH EVERY 8 HOURS NEEDED FOR NAUSEA AND VOMITING 30 tablet 1 04/26/20 25 Active naproxen (Naprosyn) 500 MG tablet TAKE 1 TABLET BY MOUTH TWICE DAILY IN THE MORNING AND AT BEDTIME NEEDED FOR MILD PAIN 40 tablet 1 04/26/20 25 Active clotrimazole (Lotrimin) 1 % cream APPLY TOPICALLY TO THE AFFECTED AREA(S) TWICE DAILY IN THE MORNING AND AT BEDTIME NEEDED FOR RASH FOR UP TO 28 DAYS 60 g 2 04/26/20 25 Active Petrolatum 42 % ointment APPLY TOPICALLY NEEDED FOR DRY SKIN 454 g 3 04/26/20 25 Active Arnuity Ellipta 100 MCG/ACT inhaler INHALE 1 PUFF BY MOUTH EVERY DAY AT THE SAME TIME RINSE MOUTH AFTER USING. 30 each 04/27/20 25 Active famotidine (Pepcid) 40 MG tablet TAKE 1 TABLET BY MOUTH AT BEDTIME 90 tablet 05/09/20 25 Active hydroCHLOROthia zide (HYDRODiuril) 25 MG tablet TAKE 1 TABLET BY MOUTH EVERY MORNING 90 tablet 05/09/20 25 Active sertraline (Zoloft) 25 MG tablet TAKE 1 TABLET BY MOUTH EVERY MORNING 30 tablet 3 05/09/20 25 Active triamcinolone (Kenalog) 0.1 % ointment APPLY TOPICALLY TO THE AFFECTED AREA(S) TWICE DAILY IN THE MORNING AND AT BEDTIME NEEDED RASH 30 g 1 07/30/20 25 Active insulin degludec (Tresiba FlexTouch) 200 UNIT/ML injectionIndica tions:Type 2 diabetes mellitus without complication, with long-term current use of insulin ([facility]) Inject 36 Units under the skin at bedtime. 9 mL 3 06/14/20 25 Active albuterol (Ventolin HFA) 108 (90 Base) MCG/ACT inhalerIndicati ons:Asthma, unspecified asthma severity, unspecified whether complicated, unspecified whether persistent INHALE 2 PUFFS BY MOUTH EVERY 4 HOURS NEEDED FOR WHEEZING OR SHORTNESS OF BREATH 18 g 1 06/16/20 25 Active insulin degludec (Tresiba FlexTouch) 200 UNIT/ML injectionIndica tions:Type 2 diabetes mellitus without complication, with long-term current use of insulin ([facility]) Inject 50 Units under the skin at bedtime. 9 mL 8 11/08/20 24 025 Discontinued(Re order (will not trigger notification to Pharmacy)) albuterol (Ventolin HFA) 108 (90 Base) MCG/ACT inhalerIndicati ons:Asthma, unspecified asthma severity, unspecified whether complicated, unspecified whether persistent INHALE 2 PUFFS BY MOUTH EVERY 4 HOURS NEEDED FOR WHEEZING OR SHORTNESS OF BREATH 18 g 1 04/03/20 25 025 Discontinued triamcinolone (Kenalog) 0.1 % ointment APPLY TO THE AFFECTED AREA(S) TOPICALLY TWICE DAILY IN THE MORNING AND AT BEDTIME NEEDED RASH 30 g 1 04/26/20 25 025 Discontinued Active Problems Problem Noted Date Diagnosed Date Severe anxiety with panic 01/30/2025 Other hyperlipidemia 02/15/2024 Assessment & Plan (02/15/2024 2:58 PM EDT): LDL at goal SEP 2023 -cont lipitor nightly Mild persistent asthma without complication 11/2023 Assessment & Plan (02/15/2024 3:05 PM EDT): With frequent albuterol use -start asmanex BID -continue albuterol prn -advised contact [facility] if no improvement Healthcare maintenance 02/15/2024 Assessment [...] scheduled -s/p optho exam AUG 2022 at [facility], appt this mos -foot exam next visit [...] eval with ortho/PM given results -advised contact [facility] if sx change or worsen Chronic gastroesophageal reflux disease 05/23/20 16 Assessment & Plan (02/15/2024 3:07 PM EDT): No improvement with ozempic -continue prilosec BID -trial Zofran prn -will check with [facility] radiology re: GES -consider change GLP-1 -referred to GI for eval BMI 40.0-44.9, adult 05/23/2016 Sensorineural hearing loss 05/23/2016 Spina bifida 05/23/2016 Fatty liver 05/23/2016 Assessment & Plan (02/15/2024 2:59 PM EDT): -abd US with echogenic liver, no focal lesion SEP 2023 -AFP nml, LFTs improved SEP 2023 -Hep A/B immune Encounters Date Type Department Care Team Description 06/27/2025 Refill [facility] MEDICINE [address] [place] [phone] Kathy Valverde DO 06/26/2025 Telephone [facility] MEDICINE [address] [place] [phone] Kathy Valverde DO Lab Orders 06/19/2025 Refill [facility] MEDICINE [address] [place] [phone] Kathy Valverde DO 06/16/2025 Refill [facility] CHC MED & PEDS [address] [facility] [place] [address] Kathy Valverde DO Asthma, unspecified asthma severity, unspecified whether complicated, unspecified whether persistent 06/15/2025 Telephone [facility] MEDICINE [address] [place] [phone] Kathy Valverde DO Results 06/14/2025 9:30 AM EDT Procedure Visit [address] [phone] Kathy Valverde DO Encounter for gynecological examination without abnormal finding (Primary Dx); Type 2 diabetes mellitus without complication, with long-term current use of insulin ([facility]); Chronic bilateral low back pain with right-sided sciatica; Secondary amenorrhea; Dietary counseling; Exercise counseling 06/14/2025 Orders Only [facility] MEDICINE [address] [place] [phone] Kathy Valverde DO 06/14/2025 Travel 06/14/2025 Refill [facility] MEDICINE [address] [place] [phone] Kathy Valverde, 06/13/2025 Telephone [facility] MEDICINE [address] [place] [place] [address] Kathy Valverde, Chart Prep 06/09/2025 Refill [facility] MEDICINE [address] [place] [address] Kathy Valverde, DO 05/08/2025 Refill [facility] MEDICINE [address] [place] [place] [address] Kathy Valverde, DO 05/07/2025 Refill [facility] MEDICINE [address] [place] [place] [address] Kathy Valverde, DO 04/26/2025 Travel 04/26/2025 Telephone [facility] MEDICINE [address] [place] [place] [address] Kathy Valverde, Appointment Request 04/26/2025 Refill [facility] MEDICINE [address] [place] [place] [address] Kathy Valverde, DO 04/25/2025 Telephone [facility] MEDICINE [address] [place] [place] [address] Kathy Valverde, Chart Prep 04/25/2025 Refill [facility] MEDICINE [address] [place] [address] Kathy Valverde, Seasonal allergic rhinitis, unspecified trigger; Asthma, unspecified asthma severity, unspecified whether complicated, unspecified whether persistent 04/25/2025 Refill [facility] WALK-IN CENTER [address] [place] [address] Ceslo Wren MD 04/24/2025 Telephone [facility] MEDICINE [address] [place] [address] Kathy Valverde, Call back 04/03/2025 Telephone [facility] MEDICINE [address] [place] [place] [address] Kathy Valverde, Med Refill 04/01/2025 Refill [facility] MED & PEDS [address] [place] [address] Jurcsak, Kathy, DO Asthma, unspecified asthma severity, unspecified whether complicated, unspecified whether persistent from Last 3 Months Immunizations Immunization Administration Dates Next Due Hep A, Adult [...] housing situation today? I have maicol victoria 06/14/[address] you li ve. Do you have problems with any of the following? None of the above 06/14/2025 Food Insecurity Answer Date Recorded Within the past 12 months, y ou worried that your food would run out before you got money to buy more: Never True 06/14/2025 Within the past 12 months,th e food you bought just didn't last and you didn't have enough money to get more: Never True Transportation Answer Date Recorded In the past 12 months, has l ack of transportation kept you from medical appts, meetings, work or from getting things needed for daily living? No 06/14/2025 Utilities Answer Date Recorded In the past 12 months, has t he electric, gas, oil or water company threatened to shut off services in your home? No 06/14/2025 Depression Answer Date Recorded Patient Health Questionnaire-2 Score 2 01/30/2025 Internet Access Answer Date Recorded Internet Access Q1 Yes 06/14/2025 Internet Access Q2 Not on file 06/14/2025 Comments No Sex and Gender Information Value Date Recorded Sex Assigned at Female 09/15/2022 10:19 AM EDT Legal Sex Female 10:19 AM EDT Gender Identity Female 09/15/2022 10:19 AM EDT Sexual Orientation Straight 09/15/2022 10 :19 AM EDT Last Filed Vital Signs Vital Sign Reading Time Taken Comments Blood Pressure 128/70 06/14/2025 9:17 AM EDT Pulse 82 06/14/2025 9:17 AM EDT Temperature 36.7 C (98.1 F) 06/14/2025 9:17 AM EDT Respiratory Rate 21 06/14/2025 9:17 AM EDT Oxygen Saturation 99% 06/14/2025 9:17 AM EDT Inhaled Oxygen Concentration - - Weight 98.4 kg (217 lb) 06/14/2025 9:17 AM EDT Height 154.9 cm (5' 1 ) 06/14/2025 9:17 AM EDT Body Mass Index 41 06/14/2025 9:17 AM EDT Plan of Treatment Upcoming Encounters Date Type Department Care Team (Late st Contact Info) Description 07/21/2025 11:00 AM EDT Office Visit [facility] OPTOMETRY [address] [place] [address] Fausto, Georgette, OD [address] [place] [address] Health Maintenance Due Date Last Done Comments CT Colonography 1979 Colonoscopy 1979 FIT 1979 FOBT 1979 Sigmoidoscopy 1979 Diabetes: Foot Exam 1989 Family Planning (PISQ) 1994 Influenza Vaccine (#1) 2025 , 09/03/2023, 12/10/2020, Additional history exists Depression Monitoring 08/02/2025 01/30/2025, 025 Diabetes: Hemoglobin A1C 12/15/2025 025, 06/14/2025, 01/30/2025, Additional history exists Mammogram 01/14/2026 01/15/2024 Eye Exam 03/10/2026 03/10/2024, 02/15, 03/10/2024, Additional history exists Alcohol/Substance Use Screening 06/14/2026 06/14/2025 Disability Screening 06/14/2026 06/14/2025 Lipid Panel 06/14/2026 06/14/2025, 06/17, 09/18/2023, Additional history exists SDOH Screening 06/14/2026 06/14/2025 Tobacco Screening 06/14/2026 06/14/2025 Colorectal Cancer Screening 02/17/2028 FIT DNA/Cologuard 02/17/2028 02/16/2025 Zoster Vaccines (1 of 2) 2029 Cervical Cancer Screening 06/14/2030 HPV/Cotest 06/14/2030 06/14/2025, 04/16, 05/13/2019 Pap Smear 06/14/2030 06/14/2025, 05/02/2022 DTaP/Tdap/Td Vaccines (3 - Td or Tdap) 12/10/2030 12/10/2020, 12/11/2009 RSV Patients and Patients Aged 60 years or older (1 - 1-dose 75+ series) 2054 Pneumococcal Vaccine: Pediatrics (0 to 5 Years) and At-Risk Patients (6 to 49) Years Completed 09/17/2023 Hepatitis A Vaccines Completed 11/19/2023, 04/12/20 10 Hepatitis B Vaccines Completed 11/19/2023, 05/23/2010, 04/12/2010 COVID-19 Vaccine Completed 08/17/2024, 02/2023, 04/14/2021, Additional history exists HIV Screening Completed 06/14/2025, 06/17, 09/18/2023, Additional history exists Hepatitis C Screening Completed 06/14/2025 , 07/13/2024, 09/18/2023, Additional history exists HIB Vaccines Aged Out No longer eligi ble based on patient's age to complete this topic HPV Vaccines Aged Out No longer eligi ble based on patient's age to complete this topic IPV Vaccines Aged Out No longer eligi ble based on patient's age to complete this topic Meningococcal B Vaccine Aged Out No l onger eligible based on patient's age to complete [...] Author Hemoglobin A1c < 7 Result Component 5.4( 10:12 AM EDT) No Haydee Deluca, PharmD Record your blood sugar as directed Result Component No Yosi, Haydee, PharmD Procedures Procedure Name Priority Date/Time Associated Diagnosis Comments CHLAMYDIA/TRICHOMONAS /NEISSERIA GONORRHOEAE, PCR, URINE Routine 06/14/2025 10:12 AM EDT FSH Routine 06/14/2025 10:12 AM EDT Encounter for gynecological examination without abnormal finding Type 2 diabetes mellitus without complication, with long-term current use of insulin (CMS/HCC) Chronic bilateral low back pain with right-sided sciatica LH Routine 06/14/2025 10:12 AM EDT Encounter for gynecological examination without abnormal finding Type 2 diabetes mellitus without complication, with long-term current use of insulin (CMS/HCC) Chronic bilateral low back pain with right-sided sciatica ALPHA FETOPROTEIN, TUMOR MARKER Routine 06/14/2025 10:12 AM EDT Encounter for gynecological examination without abnormal finding Type 2 diabetes mellitus without complication, with long-term current use of insulin (CMS/HCC) Chronic bilateral low back pain with right-sided sciatica RPR (MONITOR) W/REFL TITER Routine 06/14/2025 10:12 AM EDT Encounter for gynecological examination without abnormal finding Type 2 diabetes mellitus without complication, with long-term current use of insulin (CMS/HCC) Chronic bilateral low back pain with right-sided sciatica HEPATITIS C AB W/REFL TO HCV RNA, QN, PCR Routine 06/14/2025 10:12 AM EDT Encounter for gynecological examination without abnormal finding Type 2 diabetes mellitus without complication, with long-term current use of insulin (CMS/HCC) Chronic bilateral low back pain with right-sided sciatica HIV 1/2 ANTIGEN/ANTIBODY, FOURTH GENERATION W/RFL Routine 06/14/2025 10:12 AM EDT Encounter for gynecological examination without abnormal finding Type 2 diabetes mellitus without complication, with long-term current use of insulin (CMS/HCC) Chronic bilateral low back pain with right-sided sciatica ALBUMIN, RANDOM URINE W/CREATININE Routine 06/14/2025 10:12 AM EDT Encounter for gynecological examination without abnormal finding Type 2 diabetes mellitus without complication, with long-term current use of insulin (CMS/HCC) Chronic bilateral low back pain with right-sided sciatica CBC Routine 06/14/2025 10:12 AM EDT Encounter for gynecological examination without abnormal finding Type 2 diabetes mellitus without complication, with long-term current use of insulin (CMS/HCC) Chronic bilateral low back pain with right-sided sciatica BASIC METABOLIC PANEL Routine 06/14/2025 10:12 AM EDT Encounter for gynecological examination without abnormal finding Type 2 diabetes mellitus without complication, with long-term current use of insulin (CMS/HCC) Chronic bilateral low back pain with right-sided sciatica HEMOGLOBIN A1C Routine 06/14/2025 10:12 AM EDT Encounter for gynecological examination without abnormal finding Type 2 diabetes mellitus without complication, with long-term current use of insulin (CMS/HCC) Chronic bilateral low back pain with right-sided sciatica HEPATIC FUNCTION PANEL Routine 06/14/2025 10:12 AM EDT Encounter for gynecological examination without abnormal finding Type 2 diabetes mellitus without complication, with long-term current use of insulin (CMS/HCC) Chronic bilateral low back pain with right-sided sciatica TSH Routine 06/14/2025 10:12 AM EDT Encounter for gynecological examination without abnormal finding Type 2 diabetes mellitus without complication, with long-term current use of insulin (CMS/HCC) Chronic bilateral low back pain with right-sided sciatica LIPID PANEL, STANDARD Routine 06/14/2025 10:12 AM EDT Encounter for gynecological examination without abnormal finding Type 2 diabetes mellitus without complication, with long-term current use of insulin (CMS/HCC) Chronic bilateral low back pain with right-sided sciatica VITAMIN D,25-OH,TOTAL,IA Routine 06/14/2025 10:12 AM EDT Encounter for gynecological examination without abnormal finding Type 2 diabetes mellitus without complication, with long-term current use of insulin (CMS/HCC) Chronic bilateral low back pain with right-sided sciatica T4, FREE Routine 06/14/2025 10:12 AM EDT Encounter for gynecological examination without abnormal finding Type 2 diabetes mellitus without complication, with long-term current use of insulin ([facility]/HCC) Chronic bilateral low back pain with right-sided sciatica CHLAMYDIA/N. GONORRHOEAE RNA, TMA, UROGENITAL Routine 06/14/2025 10:06 AM EDT Encounter for gynecological examination without abnormal finding POCT GLYCATED HEMOGLOBIN, TOTAL Routine 06/14/2025 9:19 AM EDT Type 2 diabetes mellitus without complication, with long-term current use of insulin ([facility]) POCT GLUCOSE Routine 06/14/2025 9:18 AM EDT Type 2 diabetes mellitus without complication, with long-term current use of insulin ([facility]/HCC) PAP SMEAR Routine 06/14/2025 12:00 AM EDT Encounter for gynecological examination without abnormal finding HPV DNA, LOW/HIGH RISK Routine 06/14/2025 12:00 AM EDT LAB COLOGUARD COLON CANCER SCREEN Routine 02/16/2025 8:42 AM EDT Screening for colon cancer BI MAMMOGRAM SCREENING TOMOSYNTHESIS BILATERAL Routine 01/15/2024 8:30 AM EST from Last 3 Months or Most Recently Relevant to Health Maintenance Results * Chlamydia/Trichomonas/Neisseria gonorrhoeae, PCR, Urine (06/14/2025 10:12 AM EDT) Pathologist [facility] CT PCR, Urine NOT DETECTED Not Detect. [facility] Comment:A not detected test result does not exclude the possibilityof infection because test results can be affected byimproper specimen collection, concurrent antibiotic therapy,or the number of organisms in the specimen which may bebelow the sensitivity of the test. As with many diagnostictests, results from the Xpert CT/NG assay should beinterpreted in conjunction with other laboratory andclinical data available to the clinician.The Xpert CT/NG assay should not be used for the evaluationof suspected sexual abuse or for other medico-legalindications. Additional testing is recommended in anycircumstance when false positive or false negative resultscould lead to adverse medical, social or psychologicalconsequences. NG PCR, Urine NOT DETECTED Not Detect. [facility] Comment:A not detected test result does not exclude the possibilityof infection because test results can be affected byimproper specimen collection, concurrent antibiotic therapy,or the number of organisms in the specimen which may bebelow the sensitivity of the test. As with many diagnostictests, results from the Xpert CT/NG assay should beinterpreted in conjunction with other laboratory andclinical data available to the clinician.The Xpert CT/NG assay should not be used for the evaluationof suspected sexual abuse or for other medico-legalindications. Additional testing is recommended in anycircumstance when false positive or false negative resultscould lead to adverse medical, social or psychologicalconsequences. 06/14/2025 10:1 2 AM EDT 06/14/2025 11:07 AM EDT Kathy Valverde DO LAB URINE ORDERABLES Final R esult [facility] [address] [place] [phone] * Vitamin D, 25-Hydroxy, Total, Immunoassay (06/14/2025 10:12 AM EDT) Vitamin D 25-OH Total 32.7 >30 ng/mL [facility] Comment: Health Based Reference Values*< 20 ng/mL [id number] ng/mL Insufficient> 30 ng/mL Sufficient*Adrianne WELLS. N Engl J Med. 2007;[id number] is no well-established upper level of normal vitamin Dlevels. Some laboratories use 50 ng/mL as an upper limit ofnormal. However, toxicity is patient-dependent and may occurat any level. Careful correlation with the patient'spresentation is necessary and, if there is concern forvitamin D toxicity, treatment should be consideredirrespective of the serum level.Care must be taken in interpreting Vitamin D results fromdifferent laboratories and methodologies. Published datademonstrated that results from patients undergoinghemodialysis may show a negative bias when tested withvarious automated 25-OH vitamin D assays when compared toLC-MS/MS.When testing samples from patients whose predominant form ofVitamin D is Vitamin D2, such as patients receiving VitaminD2 supplementation, results that are subtherapeutic shouldbe confirmed with another method such as LC-MS/MS. Blood Venous blood specimen / Unknown 06/14/2025 10:12 AM EDT 06/14/2025 11:23 AM EDT Kathy Valverde DO LAB BLOOD ORDERABLES Final R esult Performing Organization Address City/[facility]/ZIP Co de Phone Number [facility] [address] [place] [address] [phone] * Albumin, Random Urine W/Creatinine (06/14/2025 10:12 AM EDT) Creatinine, Urine 185.86 mg/dL [facility] Microalbumin Urine 21.0 mg/L [facility] Microalbum Creatinine Ratio Ur 11.2 <30 ug/mg cr [facility] Comment:Albumin/Creatinine R atio Reference Ranges: Normal: < 30 ug/mg creatinine Microalbuminuria: 30 - 300 ug/mg creatinineClinical Albuminuria: > 300 ug/mg creatinine Urine (Urine, Random) 06/14/2025 10:12 AM EDT 06/14/2025 10:55 AM EDT Kathy Valverde LAB URINE ORDERABLES Final R esult Performing Organization Address [facility] Co de Phone Number [facility] [address] [place], [place] [phone] * Hepatitis C Antibody with Reflex to HCV, RNA, Quantitative, Real-Time PCR (06/14/2025 10:12 AM EDT) Pathologist [facility] Hepatitis C Antibody Nonreactive Nonreactive [facility] Comment:Antibodies to HCV no t detected; does not exclude early acuteHCV infection. Blood Venous blood specimen / Unknown 06/14/2025 10:12 AM EDT 06/14/2025 11:23 AM EDT us Kathy Valverde DO LAB BLOOD ORDERABLES Final R esult Performing Organization Address [facility] Co de Phone Number [facility] [address] [place] [phone] * Alpha-Fetoprotein, Tumor Marker (06/14/2025 10:12 AM EDT) Pathologist [facility] Alpha Fetoprotein 3.7 ng/mL [facility] Comment:Reference Range: <6. 1The use of AFP as a tumor marker in females is not recommended.This test was performed using the iMPath Networkschemiluminescent method. Values obtained fromdifferent assay methods cannot be usedinterchangeably. AFP levels, regardless ofvalue, should not be interpreted as absoluteevidence of the presence or absence of disease.THIS TEST WAS PERFORMED AT:[facility] [address] [phone] CASTANEDA MD Blood Venous blood specimen / Unknown 06/14/2025 10:12 AM EDT 06/14/2025 11:23 AM EDT Kathy Valverde DO LAB BLOOD ORDERABLES Final R esult Performing Organization Address [facility] Co de Phone Number [facility] [address] [place] [phone] * RPR (Monitor) with Reflex to??Titer (06/14/2025 10:12 AM EDT) RPR (Monitor) w/Refl Titer NON-REACTI VE NON-REACT REMY [facility] Comment:THIS TEST WAS PERFOR MED AT:[facility] [address] [phone] CASTANEDA MD Rapid Plasma Reagin Ab Titer TNP [facility] Blood Venous blood specimen / Unknown 06/14/2025 10:12 AM EDT 06/14/2025 11:23 AM EDT Kathy Valverde DO LAB BLOOD ORDERABLES Final R esult Performing Organization Address [facility] Co de Phone Number [facility] [address] [place] [phone] * HIV-1/2 Antigen and Antibodies, Fourth Generation, with Reflexes (06/14/2025 10:12 AM EDT) HIV AB/AG Nonreactive Nonreactive [facility] Comment:HIV-1 p24 Ag and/or HIV-1/HIV-2 Ab not detected.A test result that is nonreactive does not exclude thepossibility of exposure to or infection with HIV-1 and/orHIV-2. Nonreactive results in this assay for individualswith prior exposure to HIV-1 and/or HIV-2 may be due toantigen and antibody levels that are below the limit ofdetection of this assay.The [employer] HIV Ag/Ab Combo assay result andsupplemental assay results should be interpreted inconjunction with the patient's clinical presentation,history and other laboratory results. If the results areinconsistent with clinical evidence, additional testing issuggested to confirm the result. Blood Venous blood specimen / Unknown 06/14/2025 10:12 AM EDT 06/14/2025 11:23 AM EDT us Kathy Valverde DO LAB BLOOD ORDERABLES Final R esult [facility] [address] [place] [phone] * CBC (06/14/2025 10:12 AM EDT) White Blood Count 7.6 4.8 - 10.8 X10*3/uL [facility] Red Blood Count 5.21 4.20 - 5.50 X10*6/uL [facility] Hemoglobin 14.7 12.0 - 16.0 g/dl [facility] Hematocrit 43.3 37.0 - 47.0 % [facility] Mean Corpuscular Volume 83.1 80.0 - 98.0 fL [facility] Mean Corpuscular Hemoglobin 28.2 27.0 - 33.0 pg [facility] Mean Corpuscular HGB Conc 33.9 31.0 - 35.0 g/dl [facility] Red Cell Distribution Width 12.5 11.0 - 16.0 % [facility] Platelet Count 272 160 - 400 X10*3/uL [facility] Mean Platelet Volume 11.8 9.4 - 12.3 fL [facility] NRBC Pct Auto 0.0 0.0 - 0.2 /100WBC [facility] NRBC Abs Auto 0.000 0.0 - 0.012 X10*3/uL [facility] Blood Venous blood specimen / Unknown 06/14/2025 10:12 AM EDT 06/14/2025 11:23 AM EDT Kathy Valverde LAB BLOOD ORDERABLES Final R esult Performing Organization Address [facility]/ZIP Co de Phone Number [facility] [address] [place] [phone] * TSH (06/14/2025 10:12 AM EDT) Thyroid Stimulating Hormone 1.40 0.32 - 4.0 uIU/mL [facility] Comment:TSH 3rd Generation ( [facility]) Blood Venous blood specimen / Unknown 06/14/2025 10:12 AM EDT 06/14/2025 11:23 AM EDT Kathy Graykirillviral LAB BLOOD ORDERABLES Final R esult Performing Organization Address [facility] Co de Phone Number [facility] [address] [place] [phone] * T4, Free (06/14/2025 10:12 AM EDT) Free T4 (Free Thyroxine) 1.02 0.71 - 1.85 ng/dL [facility] Blood Venous blood specimen / Unknown 06/14/2025 10:12 AM EDT 06/14/2025 11:23 AM EDT Kathy Valverde LAB BLOOD ORDERABLES Final R esult Performing Organization Address [facility] Co de Phone Number [facility] [address] [place] [phone] * Hemoglobin A1c (06/14/2025 10:12 AM EDT) Hemoglobin A1c 5.4 <6.0 % [facility] Comment:Hemoglobin A1C Refer ence Range Adults: 4.8 - 6.0 % Non diabetic: < 6.0 % Goal: < 7.0 %Additional Action Suggested: > 8.0 %Note: Hemoglobin A1c results are invalid for patients with abnormal amounts of HbF. Blood transfusions may impact the HbA1c concentration in the patient sample. Estimated Average Glucose 108 mg/dL [facility] Comment:eAG = Estimated ave rage glucose which is %A1C expressed asaverage glucose, using the formula of the E8S-KvgrlrgTmkqfos Glucose study (ADAG), Diabetes Care, Vol.31,#8,Jun. 2007 Blood Venous blood specimen / Unknown 06/14/2025 10:12 AM EDT 06/14/2025 11:23 AM EDT Kathy Valverde LAB BLOOD ORDERABLES Final R esult Performing Organization Address [facility] Co de Phone Number [facility] [address] [place] [phone] * LH (06/14/2025 10:12 AM EDT) Lutenizing Hormone 19.8 mIU/mL [facility] Comment:Reference Range Foll icular Phase 1.9-12.5 Mid-Cycle Peak 8.7-76.3 Luteal Phase 0.5-16.9 Postmenopausal 10.0-54.7THIS TEST WAS PERFORMED AT:[employer] [place] [phone] CASTANEDA MD Blood Venous blood specimen / Unknown 06/14/2025 10:12 AM EDT 06/14/2025 11:23 AM EDT us Kathy Valverde DO LAB BLOOD ORDERABLES Final R esult Performing Organization Address [facility] Co de Phone Number [facility] [address] [place] [phone] * FSH (06/14/2025 10:12 AM EDT) Follicle Stimulating Hormone 37.8 mIU/mL [facility] Comment:Reference Range Foll icular Phase 2.5-10.2 Mid-cycle Peak 3.1-17.7 Luteal Phase 1.5- 9.1 Postmenopausal 23.0-116.3THIS TEST WAS PERFORMED AT:[employer] [place] [phone] CASTANEDA MD Blood Venous blood specimen / Unknown 06/14/2025 10:12 AM EDT 06/14/2025 11:23 AM EDT Kathy Valverde LAB BLOOD ORDERABLES Final R esult Performing Organization Address [facility]/ZIP Co de Phone Number [facility] [address] [place] [phone] * (ABNORMAL) Hepatic Function Panel (06/14/2025 10:12 AM EDT) Bilirubin, Total 0.4 0.0 - 1.0 mg/dL [facility] Bilirubin, Direct 0.2 0.0 - 0.5 mg/dL [facility] Aspartate Amino Transferase 25 5 - 31 U/L [facility] Alanine Aminotransferase 20 0 - 31 U/L [facility] Total Protein 8.2(H) 6.5 - 8.0 g/dL [facility] Albumin Level 4.5 3.5 - 5.0 g/dL [facility] Alkaline Phosphatase 98 39 - 117 U/L [facility] Blood Venous blood specimen / Unknown 06/14/2025 10:12 AM EDT 06/14/2025 11:23 AM EDT Kathy Valverde LAB BLOOD ORDERABLES Final R esult Performing Organization Address City/[facility]/ZIP Co de Phone Number [facility] [address] [place] [phone] * Lipid Panel, Standard (06/14/2025 10:12 AM EDT) Triglycerides 66 <150 mg/dL [facility] Comment:Desirable Triglyceri de: less than 150 mg/dLBorderline High Triglyceride 150-199 mg/dLHigh Triglyceride: 200-499 mg/dLVery High Triglyceride: greater than or equal to 5OO mg/dL Cholesterol 145 <200 mg/dL [facility] Comment:Desirable Cholestero l: less than 200 mg/dLBorderline High Cholesterol: 200-239 mg/dLHigh Cholesterol: greater than 239 mg/dL LDL Cholesterol Calculated 78 <100 mg/dL [facility] Comment:Desirable LDL: less than 100 mg/dLNear Optimal/Above Optimal LDL: 110- 129 mg/dLBorderline High LDL: 130-159 mg/dLHigh LDL: 160-189 mg/dLVery High LDL: greater than or equal to 190 mg/dL HDL Cholesterol 54 >40 mg/dL [facility] Comment:Desirable HDL: great er than 40 mg/dL Note: This HDL assay may give artificially low results in patients with liver disease. Blood Venous blood specimen / Unknown 06/14/2025 10:12 AM EDT 06/14/2025 11:23 AM EDT us Kathy Valverde DO LAB BLOOD ORDERABLES Final R esult [facility] [address] [place] [phone] * Basic Metabolic Panel (06/14/2025 10:12 AM EDT) Sodium 140 135 - 145 mmol/L [facility] Potassium 4.1 3.3 - 5.1 mmol/L [facility] Chloride 104 96 - 108 mmol/L [facility] Carbon Dioxide 27 22 - 29 mmol/L [facility] Anion Gap 13 12 - 20 [facility] Urea Nitrogen (BUN) 15 9 - 16 mg/dL [facility] Creatinine, Serum 0.74 0.5 - 1.4 mg/dL [facility] Estimated Glomerular Filt Rate >60 [facility] Comment:Chronic Kidney Disea se: Estimated GFR < 60 mL/min/1.09u6[place] Kidney Disease: Estimated GFR < 15 mL/min/1.73m2 Glucose 79 60 - 115 mg/dL [facility] Calcium 10.0 8.4 - 10.2 mg/dL [facility] Blood Venous blood specimen / Unknown 06/14/2025 10:12 AM EDT 06/14/2025 11:23 AM EDT us Kathy Valverde DO LAB BLOOD ORDERABLES Final R esult [facility] [address] [place] [phone] * Chlamydia/N. Gonorrhoeae RNA, TMA, Vaginal (06/14/2025 10:06 AM EDT) CT PCR NOT DETECTED Not Detect. [facility] Comment:A not detected test result does not exclude the possibilityof infection because test results can be affected byimproper specimen collection, concurrent antibiotic therapy,or the number of organisms in the specimen which may bebelow the sensitivity of the test. As with many diagnostictests, results from the Xpert CT/NG assay should beinterpreted in conjunction with other laboratory andclinical data available to the clinician.Xpert CT/NG performance has not been evaluated in patientsless than 14 years of age. The assay should not be used forthe evaluationof suspected sexual abuse or for other medico-legalindications. Additional testing is recommended in anycircumstance when false positive or false negative resultscould lead to adverse medical, social or psychologicalconsequences. NG PCR NOT DETECTED Not Detect. [facility] Comment:A not detected test result does not exclude the possibilityof infection because test results can be affected byimproper specimen collection, concurrent antibiotic therapy,or the number of organisms in the specimen which may bebelow the sensitivity of the test. As with many diagnostictests, results from the Xpert CT/NG assay should beinterpreted in conjunction with other laboratory andclinical data available to the clinician.Xpert CT/NG performance has not been evaluated in patientsless than 14 years of age. The assay should not be used forthe evaluationof suspected sexual abuse or for other medico-legalindications. Additional testing is recommended in anycircumstance when false positive or false negative resultscould lead to adverse medical, social or psychologicalconsequences. Swab Cervical swab / Unknown 06/14/2025 10:06 AM EDT 06/14/2025 1:20 PM EDT Kathy Valverde DO LAB MICROBIOLOGY - GENERAL O RDERABLES Final Result [facility] [address] [place] [address] [phone] * POCT HGB A1C (06/14/2025 9:19 AM EDT) Hemoglobin A1C 5.4 4.0 - 5.7 % QC Media Lot # [id number] Lot# Expiration Date Blood 06/14/2025 9:19 AM EDT Kathy Abram SLAUGHTER POINT OF CARE TEST ENTER/CAESAR T ORDERABLES Final Result * POCT Glucose (06/14/2025 9:18 AM EDT) Pathologist [facility] Glucose Blood, POC 99 60 - 200 mg/dL QC Media Lot # [id number] Lot# Expiration Date Blood Capillary blood specimen / Unknown 06/14/2025 9:18 AM EDT Kathy Abram SLAUGHTER POINT OF CARE TEST ENTER/CAESAR T ORDERABLES Final Result * HPV DNA, Low/High Risk (06/14/2025 12:00 AM EDT) HPV High Risk Negative Negative [facility] HPV Genotype 16 Negative Negative [facility] HPV Genotype 18 Negative Negative [facility] Comment:HPV testing performe d at [facility] (CLIA#[id number]), [address] [place] [phone].Testing for HPV was performed using the [employer] KATHLEEN 6800system. The presence of HPV in the female genital tract isassociated with a number of diseases, including cervicalcarcinoma. The HPV DNA high risk pool tests for HPV 31, 33,35, 39, 45, 51, 52, 56, 58, 59, 66 and 68. The testing forHPV 16 and 18 genotypes has also been performed. A positiveresult indicates detection of nucleic acid sequences fromone or more subtypes, whereas a negative result indicatessuch sequences were not detected. 06/14/2025 06/15/2025 8:0 5 AM EDT Kathy Valverde DO LAB BLOOD ORDERABLES Final R esult [facility] [address] [place] [phone] * Pap Smear (06/14/2025 12:00 AM EDT) Swab Cervical swab / Unknown 06/14/2025 06/15/2025 8:05 AM EDT Narrative [facility] - 06/27/2025 9:20 AM EDT ----- ------- Name: Shannon Santos Age/Sex: 45/F : 1980 Unit#: [id number] Attend Dr: Kathy Valverde DO Re06/14/25 Status: DEP REF Location: [facility] Disch: ----- ------- SPEC : [id number] RECD: 06/15/25 STATUS: ROZ CRUZ NUM: [id number] ROE: 06/14/[address]: Kathy Valverde DO ENTERED: 06/15/25 SP TYPE: Pap Smr [facility] DR: ORDERED: Pap Smear Interpretation Satisfactory for evaluation. Negative for intraepithelial lesion or malignancy. HPV High Risk: Negative HPV Genotyping 16: Negative HPV Genotyping 18: Negative Clinical Information LMP: Postmenopausal Previous PAP test: April 2022, NML/HPV negative Other history: Encounter for gynecological examination without abnormal finding Material Received ThinPrep-Cervical PAP Disclaimer As of September 07, 2024, the technical services to include automated prescreening performed by the ThinPrep Imaging System, PAP screening and HPV testing will be performed at [facility] (CLIA #[id number]), [address] [place] [address]. Testing for HPV was performed using the Silvino KATHLEEN 6800 system. The presence of HPV in the female genital tract is associated with a number of diseases, including cervical carcinoma. The HPV DNA high risk pool tests for HPV 31, 33, 35, 39, 45, 51, 52, 56, 58, 59, 66 and 68. The testing for HPV 16 and 18 genotypes has also been performed. A positive result indicates detection of nucleic acid sequences from one or more subtypes, whereas a negative result indicates such sequences were not detected. All professional services are performed by [facility] ([address] [place] [address], [place] [address]; ; CLIA #[id number]). The PAP Test is a screening procedure with the inherent possibility of both false negative and false positive results. Results should be interpreted in the context of historic and current clinical findings. Reliability of the PAP Test is enhanced by performing the test on a regular repetitive basis. ----- ------- Signed (signature on file) APOLONIA Mcgraw (ASCP) 06/27/25 0920 ----- ------- END OF REPORT Kathy Valverde DO LAB CYTOLOGY ORDERABLES Анна robles Result [facility] [address] [place] [phone] * Cologuard?? colon cancer screening (02/16/2025 8:42 AM EDT) Cologuard Result Negative Negative 02/23/20 1:10 AM EDT [facility] (CLIA #:[id number]) Comment: NEGATIVE TEST RESULT. A negative Cologuard result indicates a low likelihood that a colorectal cancer (CRC) or advanced adenoma (adenomatous polyps with more advanced pre-malignant features) is present. The chance that a person with a negative Cologuard test has a colorectal cancer is less than 1 in 1500 (negative predictive value >99.9%) or has an advanced adenoma is less than 5.3% (negative predictive value 94.7%). These data are based on a prospective cross-sectional study of 10,000 individuals at average risk for colorectal cancer who were screened with both Cologuard and colonoscopy. (Wes Cordova al, N Engl J Med 2014;370(14):1630-3086) The normal value (reference range) for this assay is negative. COLOGUARD RE-SCREENING RECOMMENDATION: Periodic colorectal cancer screening is an important part of preventive healthcare for asymptomatic individuals at average risk for colorectal cancer. Following a negative Cologuard result, the [place] [employer] Society and U.S. Multi-Society Task Force screening guidelines recommend a Cologuard re-screening interval of 3 years. References: [place] [employer] Guideline for Colorectal Cancer Screening: https://www.cancer.org/cancer/zxnxs-ulapli-jpfzae/fxiocgggf-ilupbkdvo-bepbnqu/ac s-rec ommendations.html.; Joby DK, Judy CR, Jamin BernsteinK, Colorectal Cancer Screening: Recommendations for Physicians and Patients from the U.S. Multi-Society Task Force on Colorectal Cancer Screening , Am J Gastroenterology 2017; 112:8982-8788. TEST DESCRIPTION: Composite algorithmic analysis of stool DNA-biomarkers with hemoglobin immunoassay. Quantitative values of individual biomarkers are not [...] screened with both Cologuard and colonoscopy. (Wes Cordova al, N Engl J Med 2014;370(14):4565-4571.) Cologuard may produce a false negative or false positive result (no colorectal cancer or precancerous polyp present at colonoscopy follow up). A negative Cologuard test result does not guarantee the absence of CRC or advanced adenoma (pre-cancer). The current Cologuard screening interval is every 3 years. ([place] [employer] Society and U.S. Multi-Society Task Force). Cologuard performance data in a 10,000 patient pivotal study using colonoscopy as the reference method can be accessed at the following location: www.[employer] Payments Anytime | Anywhere/results. Additional description of the Cologuard test process, warnings and precautions can be found at www.colSHIFTrd.com. Stool specimen (specimen) 02/16/2025 8:42 AM EDT 02/18/2025 2:20 PM EDT Kathy Valverde DO LAB MOLECULAR DIAGNOSTICS OR DERABLES Final Result [facility] (CLIA #:[id number]) [address] [place] [address], * BI Mammogram Screening Tomosynthesis Bilateral (01/15/2024 8:30 AM EST) Anatomical Region Laterality Modality Breast Bilateral Mammography 01/15/2024 8:30 AM EST Narrative 01/31/2024 6:47 PM EDT [facility] [address] [place] [address] Mammography Report Signed Patient: Shannon Santos MR#: [id number] : 1980 Acct:[id number] Age/Sex: 43 / F ADM Date: 01/15/24 Loc: HO.MAMMO Attending Dr: Kathy Valverde DO Ordering Physician: Kathy Valverde DO Results: 1N egative Date of Service: 01/15/24 Follow Up: 1 Year From Orig inal Mammogram Procedure(s): MM tomosynthesis screening BI Accession Number(s): [id number] cc: Kathy Valverde DO EXAMINATION: MM SCREENING [...] in OV> 01/31/24 1844 DD/ 0830 TD/TT: Aircraft Captain: Procedure Note Donotuseinterpreter, Image - [facility]/31/20[facility] [address] [place] [address] Mammography Report Signed Patient: Shannon Santos RMR#: [id number] : 1980Acct:[id number] Age/Sex: 43 / FADM Date: 01/15/24 Loc: MAMMO Attending Dr: Kathy Valverde DO Ordering Physician: Kathy Valverde DOResults: 1N egative Date of Service: 01/15/24Follow Up: 1 Year From [facility] Mammogram Procedure(s): MM tomosynthesis screening BI Accession Number(s): [id number] cc: Kathy Valverde DO EXAMINATION: MM SCREENING [...] in OV> 01/31/24 1844 DD/ 0830 TD/TT: Aircraft Captain: Kathy Valverde DO IMG BI PROCEDURES Edited Res ult - Final from Last 3 Months or Most Recently Relevant to Health Maintenance Insurance [id number] [facility] MEDICAID STAND ADULT Care Teams [employer] Manager Relationship Specialty Start Date End Date Kathy Valverde DO [address] [place] [address] PCP - General Family Medicine 11/16/18"
[2025-06-30 08:33] LABS: TS Negative Control Passed; TS Panel A 0; TS Panel B 0; TS Positive Control Passed; TSpotTB Negative (Negative)
== END 2025-06-27 10:19 | disposition home or self-care (01) ==
LOC: HO.HHCL 10:18
PROVIDERS: PCP Family Medicine; Visit Provider Family Medicine
DX: Z11.1 Encounter for screening for respiratory tuberculosis (principal)
CPT/HCPCS: 36415; 86481